=== PATIENT | female | born 1950 ===

== ENCOUNTER 2016-08-13 15:16 | Inpatient (IN) | payer MEDICARE, MEDICAID, OTHER ==
[2016-08-13 15:37] VITALS: BMI 37.5
[2016-08-13] MEDS ORDERED: DiphenhydrAMINE 50 mg/ml Inj IVP STA (16:10)
[2016-08-13 16:30] LABS: ADD MANUAL DIFF? NO
[2016-08-13 16:51] LABS: BASO # 0.01 K/mm3 (0.0-2.0); BASO % 0.1 % (0.0-3.0); EOS # 0.8 (0.0-0.7); EOS % 7.5 % (1.5-5.0); GRAN # 8.09 (1.4-6.5); LYMPH # 1.3 (1.2-3.4); LYMPH % 11.5 % (22.0-35.0); MEAN CELL VOLUME 89.3 fL (80.0-105.0); MEAN CORPUSCULAR HEMOGLOBIN 29.7 pg (25.0-35.0); MEAN CORPUSCULAR HGB CONC 33.3 g/dl (31.0-37.0); MEAN PLATELET VOLUME 11.4 fl (7.0-11.0); MONO # 0.8 (0.1-0.6); MONO % 6.9 % (1.0-6.0); PLATELET COUNT 213 10^3/uL (120.0-450.0); RED CELL DISTRIBUTION WIDTH 14.4 % (11.5-14.5); WHITE BLOOD COUNT 10.9 10^3/ul (4.5-11.0)
[2016-08-13 16:54] LABS: ALB/GLOB RATIO 1.3 (1.1-1.8); ALKALINE PHOSPHATASE 95 U/L (38-133); ALT/SGPT 32 U/L (7-56); AST/SGOT 22 U/L (15-39); BILIRUBIN,TOTAL 0.5 mg/dL (0.2-1.3); BLOOD UREA NITROGEN 15 mg/dL (7-21); CALCIUM 8.6 mg/dL (8.4-10.5); CARBON DIOXIDE 26 mmol/L (21-33); CHLORIDE 106 mmol/L (98-107); GFR AFRICAN-AMERICAN > 60; GLUCOSE,RANDOM 101 mg/dL (70-110); POTASSIUM 4.3 mmol/L (3.6-5.0); SODIUM 137 mmol/L (132-148); TOTAL PROTEIN 6.5 g/dL (5.8-8.3)
--- NOTE | 2016-08-13 17:17 | ED PDOC ---
Arrival/HPI - General Chief Complaint: Abnormal Skin Integrity Time Seen by Provider: 08/13/16 15:38 Historian: Patient - History of Present Illness Narrative History of Present Illness (Text): 08/13/16 17:13 65yr old female presents today with diffuse rash to body. pt states rash started 1 day after have Ceretec scan performed. pt states she was being followed by her orthopedist for possible infection in the left knee. pt states the tests were negative for infection but she developed this very pruritic rash that started on left arm and slowly has spread to the entire body. pt denies cp or sob. denies any new soaps, lotions, detergents, medications, perfumes. no vomiting/diarrhea. denies any pain. pt states she has been taking benadryl for the itch with slight improvement. denies fever/chills. no other complaints. 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 wears glasses - Renal Hx Renal Disorder: No - Endocrine/Metabolic Hx Endocrine Disorders: No - Hematological/Oncological Hx Blood Disorders: No Hx AIDS: No - Integumentary Hx Dermatological Disorder: No - Musculoskeletal/Rheumatological Hx Arthritis: Yes - Gastrointestinal Hx Gastrointestinal Disorders: Yes Hx Gastritis: Yes - Genitourinary/Gynecological Hx Genitourinary Disorders: No - Psychiatric Hx Psychophysiologic Disorder: Yes Hx Anxiety: Yes Hx Emotional Abuse: (pt. stated no) Hx Physical Abuse: (pt stated no) Hx Substance Use: No - Surgical History Hx Joint Replacement: Yes (left knee) Other/Comment: colonoscopy S/p LTKR 07/12/2014 - Anesthesia Hx Anesthesia: Yes Hx Anesthesia Reactions: Yes (nausea) Hx Malignant Hyperthermia: No - Suicidal Assessment Feels Threatened In Home Enviroment: No Family/Social History - Physician Review Nursing Documentation Reviewed: Yes Family/Social History: Unknown Family HX Smoking Status: Former Smoker Hx Alcohol Use: No Hx Substance Use: No Hx Substance Use Treatment: No Allergies/Home Meds Allergies/Adverse Reactions: Allergies ketorolac Allergy (Verified 08/13/16 15:34) SHORTNESS OF BREATH Home Medications: Home Meds Medication Instructions Recorded Confirmed Albuterol Sulfate [Proair Hfa] 2 puff PO PRN PRN 06/08/13 02/15/16 Verapamil [Calan SR Tab] 120 mg PO DAILY 06/08/13 02/15/16 Lisinopril [Zestril] 40 mg PO DAILY 07/12/15 02/15/16 Temazepam 30 mg PO HS 07/12/15 02/15/16 Topiramate [Topamax] 100 mg PO BID 07/12/15 02/15/16 Alprazolam [Xanax] 0.5 mg PO QID 02/15/16 02/15/16 Ferrous Sulfate [Feosol] 325 mg PO DAILY 02/15/16 02/15/16 Fluticasone/Salmeterol 250/50 1 dsk IH BID 02/15/16 02/15/16 [Advair Diskus] Omeprazole 40 mg PO DAILY 02/15/16 02/15/16 Simvastatin [Zocor] 20 mg PO DAILY 02/15/16 02/15/16 Warfarin [Coumadin] 5 mg PO DAILY 02/15/16 02/15/16 Review of Systems - Review of Systems Constitutional: absent: Fatigue, Fevers Respiratory: absent: SOB, Cough Cardiovascular: absent: Chest Pain, Palpitations Gastrointestinal: absent: Abdominal Pain, Nausea, Vomiting Genitourinary Female: absent: Dysuria Musculoskeletal: absent: Arthralgias Skin: Rash, Pruritis Neurological: absent: Headache, Dizziness Psychiatric: absent: Anxiety, Depression Physical Exam Vital Signs Reviewed: Yes Vital Signs Temp Pulse Resp BP Pulse Ox 08/13/16 18:35 79 18 125/67 100 08/13/16 16:37 89 18 128/69 100 08/13/16 15:33 98.2 F 94 H 18 132/71 100 Temperature: Afebrile Blood Pressure: Normal Pulse: Regular Respiratory Rate: Normal Appearance: Positive for: Well-Appearing, Non-Toxic, Comfortable Pain Distress: None Mental Status: Positive for: Alert and Oriented X 3 - Systems Exam Head: Present: Atraumatic, Normocephalic Conjunctiva: Present: Normal Mouth: Present: Moist Mucous Membranes Neck: Present: Normal Range of Motion Respiratory/Chest: Present: Clear to Auscultation, Good Air Exchange. No: Respiratory Distress, Accessory Muscle Use Cardiovascular: Present: Regular Rate and Rhythm, Normal S1, S2. No: Murmurs Abdomen: No: Tenderness, Distention, Peritoneal Signs Back: No: CVA Tenderness, Midline Tenderness, Paraspinal Tenderness Upper Extremity: Present: Normal ROM. No: Cyanosis, Edema Lower Extremity: Present: Normal ROM. No: Edema Neurological: Present: GCS=15, Speech Normal Skin: Present: Warm, Dry, Rashes (erythematous blanching papules and plaques noted to upper arms and thighs bilaterally. pt with non blanching erythematous pinpoint macules noted to the lower legs bilaterally; there are erythematous papules noted to chest and stomach. back is erythematous without papules), Normal Color Psychiatric: Present: Alert, Oriented x 3 Medical Decision Making ED Course and Treatment: 08/13/16 17:22 Patient is nontoxic well-appearing in no distress with stable vital signs no angioedema. pt with worsening rash to entire body. Lungs are clear to auscultation bilaterally there is no wheezing noted. The airway is patent Benadryl 50 mg IV Solu-Medrol 125 mg IV Pepcid 20 mg IV cbc; wnl cmp; wnl INR: 4 Patient reassessment: Patient nontoxic well-appearing no distress with stable vital signs. There has been no improvement in the rash despite IV medications Rash has a petechial appearance of the lower extremities, with a diffuse erythema along the back with erythematous papules and plaques along the chest and abdomen. Patient with an elevated INR. Question whether the rash is allergic in nature or if there is a possible vasculitis. Will admit observational status for further evaluation. Case discussed in depth with Dr. Rajput excepts admission Patient was seen and evaluated by Dr. Echols. case discussed in depth with Dr. arvizu; Impression : rash, supratherapuetic INR admit to med/surg - Lab Interpretations Lab Results: 08/13/16 15:45 08/13/16 15:45 Lab Results 08/13/16 16:05: Urine Color Yellow, Urine Appearance Clear, Urine pH 7.0, Ur Specific Hudson 1.020, Urine Protein Negative, Urine Glucose (UA) Negative, Urine Ketones Negative, Urine Blood Negative, Urine Nitrate Negative, Urine Bilirubin Negative, Urine Urobilinogen 0.2, Ur Leukocyte Esterase Negative 08/13/16 15:45: WBC 10.9 D, RBC 4.48, Hgb 13.3, Hct 40.0, MCV 89.3, MCH 29.7, MCHC 33.3, RDW 14.4, Plt Count 213, MPV 11.4 H, Gran % 74.0 H, Lymph % (Auto) 11.5 L, Glynn % (Auto) 6.9 H, Eos % (Auto) 7.5 H, Baso % (Auto) 0.1, Gran # 8.09 H, Lymph # 1.3, Glynn # 0.8 H, Eos # 0.8 H, Baso # 0.01 08/13/16 15:45: Sodium 137, Potassium 4.3, Chloride 106, Carbon Dioxide 26, Anion Gap 9 L, BUN 15, Creatinine 0.7, Est GFR ( Amer) > 60, Est GFR (Non -Af Amer) > 60, Random Glucose 101, Calcium 8.6, Total Bilirubin 0.5, AST 22, ALT 32, Alkaline Phosphatase 95, Total Protein 6.5, Albumin 3.7, Globulin 2.8, Albumin/Globulin Ratio 1.3 08/13/16 15:45: PT 43.8 H*, INR 4.06 H*, APTT 52.4 H - Medication Orders Current Medication Orders: Discontinued Medications Diphenhydramine HCl (Benadryl) 50 mg IVP STAT STA Stop: 08/13/16 16:11 Last Admin: 08/13/16 16:29 Dose: 50 mg Famotidine (Pepcid) 20 mg IVP STAT STA Stop: 08/13/16 16:11 Last Admin: 08/13/16 16:29 Dose: 20 mg Methylprednisolone (Solu-Medrol) 125 mg IVP STAT STA Stop: 08/13/16 16:11 Last Admin: 08/13/16 16:29 Dose: 125 mg Disposition/Present on Arrival - Present on Arrival Any Indicators Present on Arrival: Yes History of DVT/PE: Yes History of Uncontrolled Diabetes: No Urinary Catheter: No History of Decub. Ulcer: No History Surgical Site Infection Following: None - Disposition Have Diagnosis and Disposition been Completed?: Yes Diagnosis: Rash, Petechial rash, Elevated INR Disposition: HOSPITALIZED Disposition Time: 18:40 Patient Plan: Observation Patient Problems: Current Active Problems Problem Status Onset Elevated INR Acute Petechial rash Acute Rash Acute Condition: FAIR Referrals: Luz Marina Dean MD [Primary Care Provider] - Follow up with primary
[2016-08-13 17:40] LABS: URINE BILIRUBIN NEGATIVE (NEGATIVE); URINE BLOOD NEGATIVE (NEGATIVE); URINE GLUCOSE (UA) NEGATIVE (NEGATIVE); URINE KETONE NEGATIVE (NEGATIVE); URINE LEUKOCYTE ESTERASE NEGATIVE Leu/uL (NEGATIVE); URINE PROTEIN NEGATIVE mg/dL (<30 mg/dL); URINE UROBILINOGEN 0.2 E.U./dL (<1 E.U./dL)
[2016-08-13 17:44] LABS: URINE APPEARANCE CLEAR (CLEAR); URINE COLOR YELLOW (YELLOW)
[2016-08-13 18:00] LABS: PARTIAL THROMBOPLASTIN TIME 52.4 Seconds (23.7-30.8)
[2016-08-13 18:07] LABS: INR 4.06 (0.93-1.08)
[2016-08-13 22:36] VITALS: RESP 20
[2016-08-13] MEDS: MOMETASONE 0.1% TOP SCH (23:24)
[2016-08-14 01:09] LABS: INR 3.85 (0.93-1.08)
[2016-08-14 07:44] LABS: HEMATOCRIT 42.1 % (36.0-48.0); MEAN CELL VOLUME 89.4 fL (80.0-105.0); MEAN CORPUSCULAR HEMOGLOBIN 29.3 pg (25.0-35.0); MEAN CORPUSCULAR HGB CONC 32.8 g/dl (31.0-37.0); MEAN PLATELET VOLUME 11.5 fl (7.0-11.0); RED CELL DISTRIBUTION WIDTH 14.6 % (11.5-14.5); WHITE BLOOD COUNT 9.7 10^3/ul (4.5-11.0)
[2016-08-14 07:55] LABS: BLOOD UREA NITROGEN 12 mg/dL (7-21); CALCIUM 8.6 mg/dL (8.4-10.5); CARBON DIOXIDE 25 mmol/L (21-33); CHLORIDE 105 mmol/L (95-110); CHOLESTEROL 156 mg/dL (130-200); GFR AFRICAN-AMERICAN > 60; GLUCOSE,RANDOM 107 mg/dL (70-110); POTASSIUM 4.2 mmol/L (3.6-5.0); SODIUM 138 mmol/L (132-148)
--- NOTE | 2016-08-14 08:22 | HP ---
CHIEF COMPLAINT: Rash on the whole body except the face. HISTORY OF PRESENT ILLNESS: The patient is a 65-year-old female came to the Emergency Room with diffuse rash to the body. The patient states rash started 1 day after she had Ceretec scan performed. The patient stated that she was being followed up by her orthopedic, Dr. Vega, for possible infection in the left knee. The patient stated that tests were negative for infection, but she got this pruritic rash that started on the left arm and slowly has spread to the entire body except the face and head. The patient denies chest pain. No nausea, vomiting, or diarrhea. She does not have any history of using a new soap, lotions or detergents, medications, perfumes, jewelries. No nausea, vomiting, or diarrhea. The patient stated that she has been taking Benadryl for the itch with slight improvement. Denies fever or chills. No other complaints, but constantly itching. The skin is red. PAST MEDICAL HISTORY: History of hypertension, stable with medications. COPD, migraine, partial vision right eye affected. The left eye has no problem. Arthritis, gastritis, anxiety, left knee replacement. FAMILY HISTORY: Father and mother noncontributory. HABITS: Former smoker. No alcohol, no substance abuse. ALLERGIES: THE PATIENT IS ALLERGIC WITH KETOROLAC, GIVES SHORTNESS OF BREATH. HOME MEDICATIONS: Albuterol, Zestril, Topamax, Xanax, Feosol, Zocor, warfarin. REVIEW OF SYSTEMS: The patient seen and examined on the bedside in the ER. Son was standing on the bedside also. No fatigue. No fever. No shortness of breath, no coughing, no chest pain, no palpitations. No abdominal pain, nausea , vomiting, or diarrhea. No dysuria. No arthralgia. On the skin, she had rash , pruritic. Whole skin is red. No headache, no dizziness. PHYSICAL EXAMINATION: VITAL SIGNS: Temperature 98.2, pulse 94, respiratory rate 18, blood pressure 130/74, pulse oximetry 100. HEENT: Head normocephalic and atraumatic. Eyes: PERRLA. Extraocular muscles intact. Conjunctivae clear. Nose patent. Mucous membranes moist. NECK: Supple. No carotid bruit, JVD or thyromegaly. CHEST: Bilaterally symmetrical. HEART: S1, S2 positive. LUNGS: Clear to auscultation. ABDOMEN: Soft, nontender. No organomegaly. EXTREMITIES: No edema, no cyanosis. NEUROLOGIC: The patient is awake, alert and moving all 4 extremities. No focal deficit. SKIN: Warm, dry. Rash is erythematous, blanching. Papules and plaques noted to the upper arms and thighs bilaterally. The patient with nonblanching, erythematous pinpoint macules noted to the lower legs bilaterally. Dry erythematous plaques noted on the chest and stomach. Back is erythematous without papule. Normal skin color except that rash is red. LABORATORY DATA: Blood cells 10.5, hemoglobin 13.3, hematocrit 40.0, platelets noted Sodium 137, potassium noted , BUN 17, creatinine 0.7, glucose 101. ASSESSMENT AND PLAN: The patient is a 65-year-old lady has rash, whole body, on Coumadin. INR is elevated. We will hold Coumadin. Has history of chronic obstructive pulmonary disease, hypertension, migraine, right eye vision problem , History of gastritis, anxiety. Was seen by Dr. Vega, got procedure, Ceretec scan, The patient had allergic reaction or dermatitis, spoke to the PA, Brissa Waggoner. She had discussion done with infectious disease, Dr. Bolivar , insect control inspector. The patient got Benadryl, Pepcid, methylprednisone. Gastrointestinal and deep venous thrombosis prophylaxis. Repeat labs. We will follow up. Lucy Rajput MD cc: [id number] TT: 08/14/2016 08:07:34 tn MTDNorris
[2016-08-14] MEDS: MethylPREDNISolone 40 mg Vial IVP SCH ×2 (09:48→21:23)
[2016-08-14] MEDS: MOMETASONE 0.1% TOP SCH ×2 (09:50→17:58)
--- NOTE | 2016-08-14 15:50 | CP.PCM.CON ---
History of Present Illness - History of Present Illness History of Present Illness: 65 year old male with PMH of HTN, COPD, migraine, arthritis, anxiety, S/P left knee arthroplasty in June 2015, obesity with BMI 38 is admitted because of generalized maculopapular rash which started as week ago, about a day after she underwent a WBC scan to rule out left knee prosthetic infection. Around the same time, she also had her Verapamil changed to the generic form. The rash started on the left upper arm, then spread had some on her trunk and it has now spread to her legs and neck, so far sparing the face. She denies animal or insect bites or contact, no travel outdoors in the past 3 months, no swimming in water, no fever or chills, no nausea or vomiting, no chest pain, no SOB, no difficulty swallowing, no blurring of vision, no cough or colds, no diarrhea, no dysuria, no hematuria, no abdominal pain. Infectious Diseases consult is requested to further evaluate and manage. 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 wears glasses - RENAL Hx Chronic Kidney Disease: No - ENDOCRINE/METABOLIC Hx Endocrine Disorders: No - HEMATOLOGICAL/ONCOLOGICAL Hx Blood Disorders: No Hx AIDS: No - INTEGUMENTARY Hx Dermatological Problems: No - MUSCULOSKELETAL/RHEUMATOLOGICAL Hx Arthritis: Yes - GASTROINTESTINAL Hx Gastrointestinal Disorders: Yes Hx Gastritis: Yes - GENITOURINARY/GYNECOLOGICAL Hx Genitourinary Disorders: No - PSYCHIATRIC Hx Psychophysiologic Disorder: Yes Hx Anxiety: Yes Hx Emotional Abuse: (pt. stated no) Hx Physical Abuse: (pt stated no) Hx Substance Use: No - SURGICAL HISTORY Hx Joint Replacement: Yes (left knee) Other/Comment: colonoscopy S/p LTKR 07/12/2014 - ANESTHESIA Hx Anesthesia: Yes Hx Anesthesia Reactions: Yes (nausea) Hx Malignant Hyperthermia: No Meds Allergies/Adverse Reactions: Allergies Allergy/AdvReac Type Severity Reaction Status Date / Time ketorolac Allergy SHORTNESS Verified 08/13/16 15:34 OF BREATH - Medications Medications: Current Medications Diphenhydramine HCl (Benadryl) 50 mg PO Q8 PRN PRN Reason: Rash Last Admin: 08/14/16 03:45 Dose: 50 mg Famotidine (Pepcid) 40 mg PO HS [facility] Methylprednisolone (Solu-Medrol) 40 mg IVP Q12 KRISTYN Mometasone Furoate (Elocon Lotion) 0 ml TOP BID KRISTYN Last Admin: 08/13/16 23:24 Dose: 1 applic Montelukast Sodium (Singulair) 10 mg PO HS [facility] Last Admin: 08/13/16 23:24 Dose: 10 mg Physical Exam - Constitutional Appears: Non-toxic, No Acute Distress - Head Exam Head Exam: NORMAL INSPECTION - ENT Exam ENT Exam: Mucous Membranes Moist - Neck Exam Neck exam: Negative for: Lymphadenopathy, Meningismus - Respiratory Exam Respiratory Exam: Decreased Breath Sounds - Cardiovascular Exam Cardiovascular Exam: +S1, +S2 - GI/Abdominal Exam GI & Abdominal Exam: Soft. absent: Tenderness - Skin Skin Exam: Rash (diffuse, maculopapular, confluent, blanching, so far sparing the face) Results - Vital Signs Recent Vital Signs: Last Vital Signs Temp 98.1 F 08/13/16 22:19 Pulse 70 08/13/16 22:19 Resp 20 08/13/16 22:19 BP 160/95 H 08/13/16 22:19 Pulse Ox 100 08/13/16 20:52 - Labs Result Diagrams: 08/14/16 07:30 08/14/16 07:30 Labs: Laboratory Results - last 24 hr 08/14/16 00:10 PT 41.6 H* INR 3.85 H* Assessment & Plan - Assessment and Plan (Free Text) Plan: Assessment Diffuse maculopapular rash, probably drug-related R/O due to generic Verapamil, R/O related to WBC scan HTN COPD migraine arthritis anxiety S/P left knee arthroplasty in June 2015 obesity with BMI 38 Plan Started patient on streroids, H1 and H2 blockers and will monitor clinical response reviewed WBC scan and Bone scan results - bone scan is positive but is more likely due to the prosthesis, while the WBC scan is negative for infection in the left knee prosthesis
--- NOTE | 2016-08-15 08:53 | PN ---
DATE: 08/14/2016 SUBJECTIVE: The patient was seen and examined on the bedside. Looks comfortable, not big change in the status, but getting a little bit better. No nausea, vomiting, or diarrhea. No hematuria or hematochezia. Still skin is itchy. PHYSICAL EXAMINATION: VITAL SIGNS: Temperature 97.7, pulse 63, blood pressure 135/81, respiratory rate 20. HEENT: Head normocephalic, atraumatic. Eyes: PERRLA. Extraocular muscles are intact. Conjunctivae clear. Nose patent. Mucous membranes moist. NECK: Supple. No carotid bruit, JVD or thyromegaly. CHEST: Bilaterally symmetrical. HEART: S1, S2 positive. LUNGS: Clear to auscultation. ABDOMEN: Soft. Bowel sounds present. No organomegaly. EXTREMITIES: No edema, no cyanosis. NEUROLOGIC: The patient is awake, alert, moving all 4 extremities. No focal deficit. SKIN: Warm, red. Rash is all over the body, sparing the face. MEDICATIONS: Benadryl, Elocon, Pepcid, Singulair, Solu-Medrol. LABORATORY DATA: White blood cells 9.7, hemoglobin 13.8, hematocrit 42.1, platelets 214. Sodium 138, potassium 4.2, BUN 12, creatinine 0.6, hemoglobin A1c 5.8. TSH 0.4. 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 That gave her ptosis and that is giving migraine, history of hypertension, arthritis, anxiety, status post left knee arthroplasty in 06/2015, obesity, has generalized maculopapular rash which started a week ago, underwent for white blood cell scan to rule out left knee prosthetic Infection. Around the same time, the patient had verapamil, took the generic form. Maybe rash is drug related, rule out due to generic verapamil , rule out related to white blood cell scan. Started the patient on steroid, H1 and H2 blockers and we will monitor clinical response. positive, but is more likely due to prosthesis. White blood cell scan is negative for infection in the left knee as per Dr. Markus Bolivar. The patient needs hematology consult, but health psychologist is not available in [facility]. We are giving Benadryl, Cymbalta, Elocon cream, Pepcid, Zocor for hypercholesterolemia. Topamax for migraine, Zestril for blood pressure. Gastrointestinal and deep venous thrombosis prophylaxis. Repeat labs. We will follow up. Lucy Rajput MD cc: [id number] TT: 08/15/2016 08:53:07 Confirmation # [id number] Dictation # [id number] tn MTDD
[2016-08-15] MEDS: MOMETASONE 0.1% TOP SCH ×3 (09:39→17:00)
[2016-08-15] MEDS: MethylPREDNISolone 40 mg Vial IVP SCH ×2 (09:39→21:51)
--- NOTE | 2016-08-15 09:51 | CON ---
DATE: 08/14/2016 REFERRING PHYSICIAN: Dr. Rajput REASON FOR CONSULTATION: Pulmonary embolism, may have sleep apnea syndrome, admitted with diffuse ra sh. HISTORY OF PRESENT ILLNESS: This is a 65-year-old female with multiple medical issues including hype rtension, history of recurrent pulmonary embolism, committed for lifelong anticoagulation, history of severe migraines, degenerative joint disease, who recently had her Calan brand changed to Cardizem a nd received diltiazem. According to patient, while she is third or fourth dose of diltiazem, she sta rted having itching and rash. Presented to ER with diffuse rash all over the body with itching. Adm its to have snoring, daytime sleepy. No chest pain, no nausea, no vomiting, no diarrhea. No leg treasure n or leg swelling. PAST MEDICAL HISTORY: Recurrent pulmonary embolism, committed for lifelong anticoagulation, hyperten jazmine, chronic lung disease, migraine headaches, degenerative joint disease. ALLERGIES: KETORALAC. FAMILY HISTORY: No significant cardiopulmonary disease reported. MEDICATIONS: She is on Benadryl 50 mg q. 8 hours, Eldoquin lotion twice a day, Pepcid 40 mg daily, S ingulair 10 mg daily, Solu-Medrol 40 mg q. 12 hours. REVIEW OF SYSTEMS: On and off migraine headaches involving the right eye. No rhinitis, no cough, sp utum production. Does have snoring. No nausea, no vomiting, no diarrhea. No leg pain or leg swelli ng. PHYSICAL EXAMINATION: GENERAL: Lying in the bed, mild to moderate distress secondary to itching and rash. VITAL SIGNS: Temp is 98, heart rate 63, respiratory rate is 20, blood pressure 135/81, pulse ox 97% on room air. HEENT: Moist mucous membranes. Crowded airway. Mallampati score is 4. NECK: Supple. No JVD. LUNGS: Has a fair airflow with few rhonchi. HEART: S1, S2. ABDOMEN: Soft, nontender. No organomegaly. EXTREMITIES: No edema. NEUROLOGIC: Awake, alert, follows simple commands. SKIN: Has a diffuse rash of trunk, upper body and back. LABORATORY DATA: Shows hemoglobin 13.8, hematocrit 42.1, WBC 9.7, platelet is 214. Her INR was 3.85 today. Sodium 138, potassium 4.2, chloride 105, bicarbonate 25, BUN 12, creatinine 0.6, glucose 107 . Hemoglobin A1c 5.8. Calcium is 8.6. Cholesterol 156. TSH 0.1. IMPRESSION AND PLAN: Probably drug reaction, could be Cardizem/diltiazem, pulmonary embolism, on ant icoagulation committed for lifelong, has a supratherapeutic INR. Hold Coumadin. History of migraine headaches. Will get pain medication. Sleep apnea precaution. Keep head elevated at 45 degrees. W ill recommend attended sleep study upon discharge. Will add Singulair 10 mg at bedtime, also add lorene g-acting antihistamine. Thank you and we will follow with you. Roman Hahn MD cc: [id number] TT: 08/15/2016 09:50:22 Confirmation # [id number] Dictation # [id number] en
[2016-08-15 12:31] LABS: INR 2.7 (0.93-1.08)
--- NOTE | 2016-08-15 17:26 | CP.PCM.PN ---
Subjective - Date & Time of Evaluation Date of Evaluation: 08/15/16 Time of Evaluation: 12:10 - Subjective Subjective: Patient continues to have the maculopapular rash, now with some lesions on the jaw area. Objective - Vital Signs/Intake and Output Vital Signs (last 24 hours): Temp Pulse Resp BP Pulse Ox 97.7 F 64 20 141/83 97 08/15/16 09:18 08/15/16 09:18 08/15/16 09:18 08/15/16 09:18 08/15/16 09:18 Intake and Output: 08/15/16 08/15/16 06:59 18:59 Intake Total 240 1080 Balance 240 1080 - Medications Medications: Current Medications Atorvastatin Calcium (Lipitor) 10 mg PO DIN [facility] Last Admin: 08/15/16 16:25 Dose: 10 mg Diphenhydramine HCl (Benadryl) 50 mg PO Q4 [facility] Last Admin: 08/15/16 16:25 Dose: 50 mg Duloxetine HCl (Cymbalta) 60 mg PO DAILY [facility] Last Admin: 08/15/16 09:39 Dose: 60 mg Famotidine (Pepcid) 40 mg PO HS [facility] Last Admin: 08/14/16 21:23 Dose: 40 mg Lisinopril (Zestril) 40 mg PO DAILY [facility] Last Admin: 08/15/16 09:39 Dose: 40 mg Loratadine (Claritin) 10 mg PO DAILY [facility] Last Admin: 08/15/16 09:39 Dose: 10 mg Methylprednisolone (Solu-Medrol) 40 mg IVP Q12 [facility] Last Admin: 08/15/16 09:39 Dose: 40 mg Mometasone Furoate (Elocon Lotion) 0 ml TOP TID [facility] Last Admin: 08/15/16 17:00 Dose: 1 applic Montelukast Sodium (Singulair) 10 mg PO HS [facility] Last Admin: 08/14/16 21:23 Dose: 10 mg Topiramate (Topamax) 100 mg PO BID [facility] PRN Reason: Protocol Last Admin: 08/15/16 16:59 Dose: 100 mg Warfarin Sodium (Coumadin) 1 mg PO 1800 [facility] PRN Reason: Protocol Last Admin: 08/15/16 16:59 Dose: 1 mg - Labs Labs: PT 29.2 Seconds (9.9-11.8) H 08/15/16 12:15 INR 2.70 (0.93-1.08) H 08/15/16 12:15 APTT 52.4 Seconds (23.7-30.8) H 08/13/16 15:45 - Constitutional Appears: Non-toxic, No Acute Distress - Head Exam Head Exam: NORMAL INSPECTION - Neck Exam Neck Exam: absent: Lymphadenopathy, Meningismus - Respiratory Exam Respiratory Exam: Decreased Breath Sounds - Cardiovascular Exam Cardiovascular Exam: +S1, +S2 - GI/Abdominal Exam GI & Abdominal Exam: Soft. absent: Tenderness - Skin Skin Exam: Rash (diffuse, confluent maculopapular rash, diffuse) Assessment and Plan - Assessment and Plan (Free Text) Plan: Assessment Diffuse maculopapular rash, probably drug-related R/O due to generic Verapamil, R/O related to WBC scan HTN COPD migraine arthritis anxiety S/P left knee arthroplasty in June 2015 obesity with BMI 38 Plan continue steroids, H1 and H2 blockers and will continue to monitor clinical response reviewed WBC scan and Bone scan results - bone scan is positive but is more likely due to the prosthesis, while the WBC scan is negative for infection in the left knee prosthesis
--- NOTE | 2016-08-15 18:40 | PN ---
DATE: 08/15/2016 REFERRING PHYSICIAN: Dr. Rajput. SUBJECTIVE: She is out of bed to chair. She has a diffuse rash from neck to lower extremity with it ron. No shortness of breath. No chest pain. Migraine is a little better. No nausea, no vomiting , diarrhea. No leg pain or leg swelling. OBJECTIVE: GENERAL: In no acute distress. VITAL SIGNS: Temp is 98, heart rate is 64, respiratory rate is 20, blood pressure 141/83, pulse ox 9 7% on room air. HEENT: Moist mucous membranes. Crowded airway. Mallampati score is 4. NECK: Supple. No JVD. LUNGS: Has a fair airflow with few rhonchi. ABDOMEN: Soft, nontender. No organomegaly. EXTREMITIES: There is no edema. NEUROLOGIC: Awake, alert, follows simple commands. Has a diffuse maculopapular rash. MEDICATIONS: She is on Benadryl 50 mg q. 4 hours, Claritin 10 mg daily, Cymbalta 60 mg daily. She i s getting Elocon lotion to the body 3 times a day, Lipitor 10 mg daily, Pepcid 40 mg daily, Singulair 10 mg daily, Solu-Medrol 40 mg q. 12 hours, Topamax 100 mg twice a day, Zestril 40 mg daily. LABORATORY DATA: Shows hemoglobin 13.8. Today's INR 2.70. KENRICK screen has been negative. IMPRESSION AND PLAN: Probably drug reaction. She switched her Calan to Cardizem/diltiazem, history of pulmonary embolism on anticoagulation, migraine headaches, may have sleep apnea syndrome. Will co ntinue Claritin daily , p.r.n. Benadryl, Solu-Medrol, may give Coumadin 1 mg today. INR in the morning. Gastric prophylaxis. Sleep apnea precaution. Thank you and I will follow with you. Roman Hahn MD cc: [id number] TT: 08/15/2016 18:39:42 Confirmation # [id number] Dictation # [id number] mn
[2016-08-16 07:50] LABS: INR 2.19 (0.93-1.08)
[2016-08-16] MEDS: MethylPREDNISolone 40 mg Vial IVP SCH ×2 (09:14→21:45)
[2016-08-16] MEDS: MOMETASONE 0.1% TOP SCH ×3 (09:16→18:00)
--- NOTE | 2016-08-16 09:44 | PN ---
DATE: 08/15/2016 SUBJECTIVE: The patient was seen and examined on the bedside. The patient was seen and examined on in her room, having continuously maculopapular rash and now with some lesions on the jaw area and near the ears also, but legs - rash is getting a little bit better. No nausea, vomiting, or diar checo. No hematuria or hematochezia. No swelling of the leg. No chest pain, no palpitation. No hea dache, no dizziness. PHYSICAL EXAMINATION: VITAL SIGNS: Temperature 97.7, pulse 64, respiratory rate 20, blood pressure 140/83, pulse oximetry 97. HEENT: Head normocephalic, atraumatic. Eyes: PERRLA. Extraocular muscles are intact. Conjunctiva e are clear. Nose patent. Mucous membranes moist. NECK: Supple. No carotid bruit, JVD, or thyromegaly. CHEST: Bilaterally symmetrical. HEART: S1, S2 positive. LUNGS: Clear to auscultation. ABDOMEN: Soft. Bowel sounds present. No organomegaly. EXTREMITIES: No edema, no cyanosis. SKIN: Has maculopapular rash all over, now is going to the jaw area also. MEDICATIONS: Atorvastatin, Benadryl ____ q. 4 hours, Cymbalta, Pepcid, Zestril, Claritin, Solu-Medro l, Elocon, Singulair, Topamax, Coumadin. LABORATORY DATA: PT 29.4, INR 2.70. APTT 52.4. ASSESSMENT AND PLAN: The patient is a 65-year-old lady with diffuse maculopapular rash, maybe drug-r elated, rule out due to genetic ____, rule out related to white blood cell scan, history of hypertens ion, obesity, chronic obstructive pulmonary disease, migraine, arthritis, anxiety, status post left k nee arthroplasty in 06/2015. She is on steroids, H1 and H2 shabbir. Continue to monitor clinical res ponse. Reviewed white blood cell scan and bone scan results. The bone scan is positive, but is more likely due to prosthesis while the white blood cell scan is negative for infection and in the left k nee prosthesis. Reviewed Dr. Markus Bolivar's notes. Reviewed Dr. Hahn's notes also. The patient has chronic obstructive pulmonary disease, history of pulmonary embolism on anticoagulation, migrain e - stable, history of right third nerve palsy ____, sleep apnea syndrome, INR monitoring, gastric pr ophylaxis, sleep apnea precautions. We will follow up. Lucy Rajput MD cc: [id number] TT: 08/16/2016 09:37:13 Confirmation # [id number] Dictation # [id number] 08/16/2016 08:44:25
--- NOTE | 2016-08-16 20:45 | PN ---
DATE: 08/16/2016 REFERRING PHYSICIAN: Dr. Rajput. SUBJECTIVE: She is lying in the bed, head at 45 degree. She still has a diffuse rash but a little b it improved, itching is also a little improved. No nausea, no vomiting, diarrhea. No leg pain or le g swelling. OBJECTIVE: GENERAL: No acute distress. VITAL SIGNS: Temperature is 98, heart rate 65, respiratory rate is 20, blood pressure 151/86, pulse ox 96% on nasal cannula. HEENT: Moist mucous membrane. Crowded airway. Mallampati score is 4. NECK: Supple. No JVD. LUNGS: Have a fair airflow with few rhonchi. HEART: S1, S2. ABDOMEN: Soft, nontender. No organomegaly. EXTREMITIES: No edema. NEUROLOGIC: Awake, alert, follows simple command. MEDICATIONS: She is on Benadryl 50 mg q. 4 hours, Claritin 10 mg daily, Coumadin 1 mg will be given, Cymbalta 60 mg daily, Elocon lotion affected area 3 times a day, Lipitor 10 mg daily, Pepcid 40 mg d aily, Singulair 10 mg daily, Solu-Medrol 40 mg IV q. 12 hours, Topamax 100 mg twice a day, Zestril 40 mg daily. LABORATORY DATA: Reviewed. INR today is 2.19. TSH 0.1. KENRICK screen was negative. IMPRESSION AND PLAN: Probably drug reaction causative agent could be Cardizem/diltiazem, pulmonary e mbolism on anticoagulation, migraine headache, may have a sleep apnea syndrome. Pulmonary point of v iew, she is doing okay. We will give an extra 2 mg of Coumadin today. INR in the morning. Gastric prophylaxis, antihistamine, steroids, H1 shabbir. Thank you and will follow with you. Roman Hahn MD cc: [id number] TT: 08/16/2016 20:45:36 Confirmation # [id number] Dictation # [id number] jayne
--- NOTE | 2016-08-16 21:16 | CP.PCM.PN ---
Subjective - Date & Time of Evaluation Date of Evaluation: 08/16/16 Time of Evaluation: 10:35 - Subjective Subjective: Feels less itchy, no fevers, not in distress. Objective - Vital Signs/Intake and Output Vital Signs (last 24 hours): Temp Pulse Resp BP Pulse Ox 98.7 F 65 20 151/86 H 96 08/16/16 16:00 08/16/16 16:00 08/16/16 16:00 08/16/16 16:00 08/16/16 16:00 Intake and Output: 08/16/16 08/17/16 18:59 06:59 Intake Total 780 Balance 780 - Medications Medications: Current Medications Atorvastatin Calcium (Lipitor) 10 mg PO DIN [facility] Last Admin: 08/16/16 17:36 Dose: 10 mg Diphenhydramine HCl (Benadryl) 50 mg PO Q4 [facility] Last Admin: 08/16/16 20:54 Dose: 50 mg Duloxetine HCl (Cymbalta) 60 mg PO DAILY [facility] Last Admin: 08/16/16 09:14 Dose: 60 mg Famotidine (Pepcid) 40 mg PO HS [facility] Last Admin: 08/15/16 21:51 Dose: 40 mg Lisinopril (Zestril) 40 mg PO DAILY [facility] Last Admin: 08/16/16 09:14 Dose: 40 mg Loratadine (Claritin) 10 mg PO DAILY [facility] Last Admin: 08/16/16 09:14 Dose: 10 mg Methylprednisolone (Solu-Medrol) 40 mg IVP Q12 [facility] Last Admin: 08/16/16 09:14 Dose: 40 mg Mometasone Furoate (Elocon Lotion) 0 ml TOP TID [facility] Last Admin: 08/16/16 18:00 Dose: 1 applic Montelukast Sodium (Singulair) 10 mg PO HS [facility] Last Admin: 08/15/16 21:51 Dose: 10 mg Topiramate (Topamax) 100 mg PO BID [facility] PRN Reason: Protocol Last Admin: 08/16/16 17:36 Dose: 100 mg Warfarin Sodium (Coumadin) 1 mg PO 1800 [facility] PRN Reason: Protocol Last Admin: 08/16/16 17:36 Dose: 1 mg - Labs Labs: PT 23.7 Seconds (9.9-11.8) H 08/16/16 07:30 INR 2.19 (0.93-1.08) H 08/16/16 07:30 APTT 52.4 Seconds (23.7-30.8) H 08/13/16 15:45 - Constitutional Appears: Non-toxic, No Acute Distress - Head Exam Head Exam: NORMAL INSPECTION - ENT Exam ENT Exam: Mucous Membranes Moist - Neck Exam Neck Exam: absent: Lymphadenopathy, Meningismus - Respiratory Exam Respiratory Exam: Decreased Breath Sounds - Cardiovascular Exam Cardiovascular Exam: +S1, +S2 - GI/Abdominal Exam GI & Abdominal Exam: Soft. absent: Tenderness - Skin Skin Exam: Rash (erythema is less intense) Assessment and Plan - Assessment and Plan (Free Text) Plan: Assessment Diffuse maculopapular rash, probably drug-related R/O due to generic Verapamil, R/O related to WBC scan, slowly improving HTN COPD migraine arthritis anxiety S/P left knee arthroplasty in June 2015 obesity with BMI 38 Plan continue steroids, H1 and H2 blockers and will continue to follow clinical response reviewed WBC scan and Bone scan results - bone scan is positive but is more likely due to the prosthesis, while the WBC scan is negative for infection in the left knee prosthesis
--- NOTE | 2016-08-17 07:23 | PN ---
DATE: 08/16/2016 SUBJECTIVE: The patient was seen and examined on the bedside, looking comfortable, still has the diffuse maculopapular rash, but a little bit improved , but now it has spread to the face also. No fever, no chills. No nausea, vomiting, or diarrhea. No hematuria or hematochezia, but the patient is very uncomfortable due to constant itching. Singulair, steroid, Elocon cream given. PHYSICAL EXAMINATION: VITAL SIGNS: Temperature 98, heart rate 65, respiratory rate 20, blood pressure 150/86, and pulse oximetry 96% on room air. HEENT: Head normocephalic, atraumatic. Eyes: PERRLA. Extraocular muscles intact. Conjunctivae clear. Nose patent. Mucous membranes moist. NECK: Supple. No carotid bruit, JVD or thyromegaly. LUNGS: Have a fair airflow with a few rhonchi. HEART: S1, S2 positive. ABDOMEN: Soft, nontender. No organomegaly. EXTREMITIES: No edema, no cyanosis. NEUROLOGIC: The patient is awake, alert, follows simple commands. SKIN: Full with a maculopapular rash, but coloration is changing a little bit, but spread to the face also. MEDICATIONS: Benadryl, Claritin 10, Coumadin 1, Cymbalta, Elocon, Lipitor, Pepcid, Singulair, Solu-Medrol, Topamax, Zestril. LABORATORY DATA: INR 2.19, TSH 0.1. KENRICK screen was negative. ASSESSMENT AND PLAN: The patient is a 65-year-old lady with drug reaction of agent, could be Cardizem/diltiazem. Pulmonary embolism on anticoagulation. Migraine headache. 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 INR in the morning. We will give extra 2 mg of Coumadin today per Dr. Hahn. Gastric prophylaxis, antihistamine and steroids and H1 shabbir. Actually, the patient needs a ribbon weaver also, but we do not have a ribbon weaver in house. Infectious disease is taking care of the patient's rash. May be rash is due to white blood cell scan, slowly improving. History of chronic obstructive pulmonary disease. Left knee arthroplasty, Obesity, body mass index 38. Gastrointestinal and deep venous thrombosis prophylaxis. Continue present treatment. Repeat labs. We will follow up. Lucy Rajput MD cc: [id number] TT: 08/17/2016 07:22:24 Confirmation # [id number] Dictation # [id number] MTDD
[2016-08-17 08:09] LABS: INR 1.79 (0.93-1.08)
[2016-08-17] MEDS: MOMETASONE 0.1% TOP SCH ×3 (10:49→17:30)
[2016-08-17] MEDS: MethylPREDNISolone 40 mg Vial IVP SCH ×2 (10:49→21:32)
--- NOTE | 2016-08-17 18:21 | CP.PCM.PN ---
Subjective - Date & Time of Evaluation Date of Evaluation: 08/17/16 Time of Evaluation: 10:25 - Subjective Subjective: Still with maculopapular rash, less itchy, less intense in redness. Objective - Vital Signs/Intake and Output Vital Signs (last 24 hours): Temp Pulse Resp BP Pulse Ox 98.1 F 70 20 150/89 98 08/17/16 16:00 08/17/16 16:00 08/17/16 16:00 08/17/16 16:00 08/17/16 16:00 Intake and Output: 08/17/16 08/17/16 06:59 18:59 Intake Total 920 640 Balance 920 640 - Medications Medications: Current Medications Atorvastatin Calcium (Lipitor) 10 mg PO DIN [facility] Last Admin: 08/17/16 17:29 Dose: 10 mg Diphenhydramine HCl (Benadryl) 50 mg PO Q4 [facility] Last Admin: 08/17/16 17:29 Dose: 50 mg Duloxetine HCl (Cymbalta) 60 mg PO DAILY [facility] Last Admin: 08/17/16 10:49 Dose: 60 mg Famotidine (Pepcid) 40 mg PO HS [facility] Last Admin: 08/16/16 21:45 Dose: 40 mg Lisinopril (Zestril) 40 mg PO DAILY [facility] Last Admin: 08/17/16 10:50 Dose: 40 mg Loratadine (Claritin) 10 mg PO DAILY [facility] Last Admin: 08/17/16 10:49 Dose: 10 mg Methylprednisolone (Solu-Medrol) 40 mg IVP Q12 [facility] Last Admin: 08/17/16 10:49 Dose: 40 mg Mometasone Furoate (Elocon Lotion) 0 ml TOP TID [facility] Last Admin: 08/17/16 17:30 Dose: 1 applic Montelukast Sodium (Singulair) 10 mg PO HS [facility] Last Admin: 08/16/16 21:45 Dose: 10 mg Topiramate (Topamax) 100 mg PO BID [facility] PRN Reason: Protocol Last Admin: 08/17/16 17:29 Dose: 100 mg Warfarin Sodium (Coumadin) 4 mg PO 1800 [facility] PRN Reason: Protocol Last Admin: 08/17/16 17:29 Dose: 4 mg - Labs Labs: PT 19.3 Seconds (9.9-11.8) H 08/17/16 07:40 INR 1.79 (0.93-1.08) H 08/17/16 07:40 APTT 52.4 Seconds (23.7-30.8) H 08/13/16 15:45 - Constitutional Appears: Non-toxic, No Acute Distress - Head Exam Head Exam: NORMAL INSPECTION - Neck Exam Neck Exam: absent: Lymphadenopathy, Meningismus - Respiratory Exam Respiratory Exam: Decreased Breath Sounds - Cardiovascular Exam Cardiovascular Exam: +S1, +S2 - GI/Abdominal Exam GI & Abdominal Exam: Soft. absent: Tenderness - Skin Additional comments: diffuse maculopapular rash, still erythematous but less intense Assessment and Plan - Assessment and Plan (Free Text) Plan: Assessment Diffuse maculopapular rash, probably drug-related R/O due to generic Verapamil, R/O related to WBC scan, slowly improving HTN COPD migraine arthritis anxiety S/P left knee arthroplasty in June 2015 obesity with BMI 38 Plan continue steroids, H1 and H2 blockers and will continue to follow clinical response reviewed WBC scan and Bone scan results - bone scan is positive but is more likely due to the prosthesis, while the WBC scan is negative for infection in the left knee prosthesis
--- NOTE | 2016-08-17 20:24 | PN ---
DATE: 08/17/2016 REFERRING PHYSICIAN: Dr. Rajput. SUBJECTIVE: She is out of bed to chair, feels a little better. The rash is a little less angry look ing. Still has itching though. Mild cough. No shortness of breath. No nausea, no vomiting, no hortensia rrhea. No leg pain or leg swelling. OBJECTIVE: GENERAL: In no acute distress. VITAL SIGNS: Temperature is 98, heart rate is 70, respiratory rate is 20, blood pressure 150/89, pul se ox 98% on room air. HEENT: Moist mucous membranes. Crowded airway. NECK: Short, thick neck. LUNGS: Has a few scattered rhonchi. HEART: S1, S2. ABDOMEN: Soft, nontender. No organomegaly. EXTREMITIES: There is no edema. NEUROLOGIC: Awake, alert, follows simple commands. SKIN: Diffuse rash with a little less erythema. MEDICATIONS: She is on Benadryl 50 mg q.4 hours, Claritin 10 mg daily, Coumadin 4 mg, Cymbalta 60 mg daily, Elocon to affected area 3 times a day, Lipitor 10 mg daily, Pepcid 40 mg at bedtime, Singulai r 10 mg daily, Solu-Medrol 40 mg q.12 hours, Topamax 100 mg twice a day, Zestril 40 mg daily. LABORATORY DATA: Reviewed. INR today 1.79. IMPRESSION AND PLAN: Probably drug reaction with a diffuse rash, which is slowly improving; has a hi story of pulmonary embolus, migraine headaches, may have sleep apnea syndrome, hypertension. Will gi ve her Coumadin 5 mg today. INR in the morning. Continue steroids. Continue antihistamine. Contin ue leukotriene inhibitors . Thank you and will follow with you. Roman Hahn MD cc: [id number] TT: 08/17/2016 20:23:38 Confirmation # [id number] Dictation # [id number] dn
--- NOTE | 2016-08-17 21:31 | PN ---
DATE: 08/17/2016 SUBJECTIVE: The patient was seen and examined at the bedside. No shortness of breath. No nausea, v omiting, or diarrhea. No fever, no chills. Skin is looking a little bit better, but is still itchy. No coughing. No headache, no dizziness, no fever, no chills. PHYSICAL EXAMINATION: VITAL SIGNS: Temperature 98, heart rate 70, respiratory rate 20, blood pressure 150/80, pulse oximet ry 98% on nasal cannula. HEENT: Head normocephalic, atraumatic. Eyes: PERRLA. Extraocular movements intact. Conjunctivae. Nose patent. Mucous membranes moist. NECK: Supple. No carotid bruit, JVD or thyromegaly. CHEST: Bilaterally symmetrical. HEART: S1, S2 positive. LUNGS: Clear to auscultation. ABDOMEN: Soft. Bowel sounds present. No organomegaly. EXTREMITIES: No edema, no cyanosis. NEUROLOGIC: Awake, alert, follows simple command. SKIN: Diffuse rash, a little less erythematous. Maculopapular. MEDICATIONS: Benadryl, Claritin, Coumadin, Cymbalta, Elocon on affected areas, Lipitor, Pepcid, Sing ulair, Solu-Medrol, Topamax, Zestril. LABORATORY DATA: INR is 1.79. ASSESSMENT AND PLAN: The patient is a 65-year-old female complaining of insomnia, used to use restor il 30 mg, I offer mg, but as per patient, she is taking 30 mg at home. Had a drug related reac tion, diffuse type, slowly improving, history of pulmonary embolism, migraine, has sleep apnea syndro me, ptosis of the right eye, third nerve palsy of the right side. We will continue Coumadin. We el l give her Restoril. Gastrointestinal and deep venous thrombosis prophylaxis. Will try to transfer the patient to TCU. INR is 1.79, PT is 19.3. Repeat labs. Will followup. Lucy Rajput MD cc: [id number] TT: 08/17/2016 21:30:52 Confirmation # [id number] Dictation # [id number] dn
[2016-08-17] MEDS ORDERED: TEMAZEPAM 30 MG PO SCH (22:00)
[2016-08-17] MEDS ORDERED: Magnesium Hydroxide Susp 30 ml UD PO STA (22:19)
--- NOTE | 2016-08-17 22:31 | CP.PCM.PN ---
Subjective - Date & Time of Evaluation Date of Evaluation: 08/17/16 Time of Evaluation: 22:23 - Subjective Subjective: S: Patient was seen at bedside. States that she has not had no bowel movement since Saturday. Has little discomfort in belly. Last bowel movement was normal. Has been eating and drinking well. Has no other complaints now. Denies chest pain, nausea , diarrhea. Pertinent medical record was reviewed. O:VSS. Last Vital Signs 3 Temp 98.1 F 08/17/16 16:00 Pulse 70 08/17/16 16:00 Resp 20 08/17/16 16:00 BP 150/89 08/17/16 16:00 Pulse Ox 98 08/17/16 16:00 Awake, alert, not in distress. ABD:No distension. A:Constipation. P: MOM 30 CC PO x 1. Objective - Vital Signs/Intake and Output Vital Signs (last 24 hours): Temp Pulse Resp BP Pulse Ox 98.1 F 70 20 150/89 98 08/17/16 16:00 08/17/16 16:00 08/17/16 16:00 08/17/16 16:00 08/17/16 16:00 Intake and Output: 08/17/16 08/18/16 18:59 06:59 Intake Total 640 960 Balance 640 960 - Medications Medications: Current Medications Atorvastatin Calcium (Lipitor) 10 mg PO DIN [facility] Last Admin: 08/17/16 17:29 Dose: 10 mg Diphenhydramine HCl (Benadryl) 50 mg PO Q4 [facility] Last Admin: 08/17/16 20:26 Dose: 50 mg Duloxetine HCl (Cymbalta) 60 mg PO DAILY [facility] Last Admin: 08/17/16 10:49 Dose: 60 mg Famotidine (Pepcid) 40 mg PO HS [facility] Last Admin: 08/17/16 21:31 Dose: 40 mg Home Med (Home Med) 1 unit PO HS [facility] Last Admin: 08/17/16 21:33 Dose: 1 unit Lisinopril (Zestril) 40 mg PO DAILY [facility] Last Admin: 08/17/16 10:50 Dose: 40 mg Loratadine (Claritin) 10 mg PO DAILY [facility] Last Admin: 08/17/16 10:49 Dose: 10 mg Methylprednisolone (Solu-Medrol) 30 mg IVP Q12 [facility] Last Admin: 08/17/16 21:32 Dose: 30 mg Mometasone Furoate (Elocon Lotion) 0 ml TOP TID [facility] Last Admin: 08/17/16 17:30 Dose: 1 applic Montelukast Sodium (Singulair) 10 mg PO HS [facility] Last Admin: 08/17/16 21:31 Dose: 10 mg Topiramate (Topamax) 100 mg PO BID [facility] PRN Reason: Protocol Last Admin: 08/17/16 17:29 Dose: 100 mg Warfarin Sodium (Coumadin) 4 mg PO 1800 [facility] PRN Reason: Protocol Last Admin: 08/17/16 17:29 Dose: 4 mg - Labs Labs: PT 19.3 Seconds (9.9-11.8) H 08/17/16 07:40 INR 1.79 (0.93-1.08) H 08/17/16 07:40 APTT 52.4 Seconds (23.7-30.8) H 08/13/16 15:45
[2016-08-18 07:52] VITALS: BP 149/93; PULSE 57; TEMP 98.6; O2SAT 95
[2016-08-18 08:27] LABS: HEMATOCRIT 44.6 % (36.0-48.0); MEAN CELL VOLUME 89.9 fL (80.0-105.0); MEAN CORPUSCULAR HEMOGLOBIN 29.6 pg (25.0-35.0); MEAN PLATELET VOLUME 11.7 fl (7.0-11.0); RED CELL DISTRIBUTION WIDTH 14.3 % (11.5-14.5); WHITE BLOOD COUNT 9.9 10^3/ul (4.5-11.0)
[2016-08-18 08:36] LABS: INR 2.18 (0.93-1.08)
[2016-08-18 08:54] LABS: BLOOD UREA NITROGEN 18 mg/dL (7-21); CALCIUM 8.9 mg/dL (8.4-10.5); CARBON DIOXIDE 28 mmol/L (21-33); CHLORIDE 104 mmol/L (95-110); GFR AFRICAN-AMERICAN > 60; GLUCOSE,RANDOM 78 mg/dL (70-110); POTASSIUM 4.4 mmol/L (3.6-5.0); SODIUM 140 mmol/L (132-148)
[2016-08-18] MEDS: MethylPREDNISolone 40 mg Vial IVP SCH (09:39)
[2016-08-18] MEDS: MOMETASONE 0.1% TOP SCH (09:40)
--- NOTE | 2016-08-18 16:30 | PN ---
DATE: 08/18/2016 The patient seen earlier, in 575, bed 2. No fevers and chills, no nausea. PHYSICAL EXAMINATION: VITAL SIGNS: Temperature is 98, blood pressure is 140/80, respiratory rate of 20, heart rate of 57. HEENT: Unremarkable. NECK: Supple. LUNGS: Have decreased breath sounds. HEART: Normal S1, S2. ABDOMEN: Soft and nontender. LABORATORY EXAMINATION: Reveals a white count of 9, hemoglobin of 14. Chemistries are noted. LFTs are normal. Urinalysis is unremarkable. KENRICK is negative ASSESSMENT AND PLAN: A 65-year-old female with diffuse maculopapular rash, drug related; hypertensio n, chronic obstructive pulmonary disease, migrating arthritis, anxiety. On steroids off of antibioti cs. We will follow with you. Kristopher Busch MD cc: [id number] TT: 08/18/2016 16:29:12 Confirmation # [id number] Dictation # [id number] mn
--- NOTE | 2016-08-19 16:20 | DS ---
The patient is a 65-year-old lady, was admitted in [facility] on 08/13/2016 , discharged to TCU on 08/18/2016. CHIEF COMPLAINT: Rash on the body. 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 Came to [facility] with rash all over the body except face. According to patient , she went for orthopedic test for Dr. Vega to see the infection of the knee. The patient had test negative for the infection, but she got pleuritic rash that started just after the test and she changed her blood pressure medicine also. We admitted the patient on medical floor. We do not have services tech available, but we called ID and critical care. The patient was given steroids. She got better. Now, patient is getting tapering dose of steroid. Transferred to TCU for the completion of the treatment. PAST MEDICAL HISTORY: Hypertension, COPD, migraine, arthritis, gastritis, anxiety, left knee replacement. FAMILY HISTORY: Father and mother noncontributory. HABITS: Former smoker. No alcohol, no substance abuse. ALLERGIES: THE PATIENT IS ALLERGIC WITH KETOROLAC. HOME MEDICATIONS: Reviewed by me. REVIEW OF SYSTEMS: The patient seen and examined on the bedside, looks comfortable. No nausea, vomiting, diarrhea. No hematuria, no hematochezia. No swelling of the legs. No chest pain, no palpitation. Rash is improving. PHYSICAL EXAMINATION: VITAL SIGNS: Temperature 98.6, pulse 57, blood pressure 149/93, respiratory rate 20. HEENT: Head normocephalic, atraumatic. Eyes: PERRLA. Extraocular muscles intact. Conjunctivae clear. Nose patent. Mucous membranes moist. NECK: Supple. No carotid bruit, no JVD, no thyromegaly. CHEST: Bilaterally symmetrical. HEART: S1 and S2 positive. LUNGS: Clear to auscultation. ABDOMEN: Soft. Bowel sounds positive. No organomegaly. EXTREMITIES: No edema, no cyanosis. NEUROLOGIC: The patient is awake, alert, moving all 4 extremities. No focal deficit. SKIN: Maculopapular rash all over the body, but improving. MEDICATIONS: Benadryl, Claritin, Coumadin, Cymbalta, Elocon, Lipitor, furosemide, Singulair, Solu-Medrol, Topamax, Zestril. LABORATORIES: White cells 9.9, hemoglobin 14.7, hematocrit 44.6, platelets 247. Sodium 140, potassium 4.4, BUN noted creatinine 0.8. ASSESSMENT AND PLAN: The patient is a 65-year-old lady. KENRICK screen is negative. Has drug reaction with diffuse maculopapular rash, which is slowly improving with steroids, has history of pulmonary embolism, is on Coumadin, migraine headache, right eye fifth nerve palsy ptosis, sleep apnea syndrome, hypertension. The patient is getting Coumadin, checking INR. ID is on the case. The patient is getting tapering dose of steroids. Continue Singulair, Zyrtec, Benadryl. We transferred patient to TCU for continuity of caring and for tapering dose of steroids. Constipation, insomnia. Gastrointestinal and deep venous thrombosis prophylaxis. Repeat labs. We will follow up. Lucy Rajput MD cc: [id number] TT: 08/19/2016 16:19:40 en MTDD
== END 2016-08-18 13:50 | DRG 607 ==
LOC: ED 15:16 → ERH 19:26 → 5RSO 21:57 → OBSVTOIN 08-14 23:00
PROVIDERS: ADMIT Internal Medicine; ATTEND Internal Medicine
DX: L30.9 Dermatitis, unspecified (principal); I10 Essential (primary) hypertension; J44.9 Chronic obstructive pulmonary disease, unspecified; E05.90 Thyrotoxicosis, unspecified without thyrotoxic crisis or storm; E78.00 Pure hypercholesterolemia, unspecified; F41.9 Anxiety disorder, unspecified; G43.909 Migraine, unspecified, not intractable, without status migrainosus; G47.30 Sleep apnea, unspecified; H54.51 Low vision, right eye, normal vision left eye; Z79.01 Long term (current) use of anticoagulants; E66.9 Obesity, unspecified; Z68.38 Body mass index [BMI] 38.0-38.9, adult; K59.00 Constipation, unspecified; G47.00 Insomnia, unspecified; M19.90 Unspecified osteoarthritis, unspecified site; Z79.899 Other long term (current) drug therapy; Z86.711 Personal history of pulmonary embolism; Z87.891 Personal history of nicotine dependence; Z96.652 Presence of left artificial knee joint; Z88.6 Allergy status to analgesic agent; R40.2412 Glasgow coma scale score 13-15, at arrival to emergency department; T50.8X5A Adverse effect of diagnostic agents, initial encounter; H02.431 Paralytic ptosis of right eyelid; T46.1X5A Adverse effect of calcium-channel blockers, initial encounter; Z98.890 Other specified postprocedural states; L29.9 Pruritus, unspecified

== ENCOUNTER 2016-08-18 13:52 | Inpatient (IN) | payer OTHER, MEDICAID ==
[2016-08-18 14:37] VITALS: BMI 36.2
[2016-08-18] MEDS: MOMETASONE 0.1% TOP SCH (18:00)
[2016-08-18] MEDS: MethylPREDNISolone 40 mg Vial IVP SCH (21:31)
[2016-08-19 07:50] LABS: ADD MANUAL DIFF? NO
[2016-08-19 07:56] LABS: BASO # 0.01 K/mm3 (0.0-2.0); BASO % 0.1 % (0.0-3.0); EOS % 0.2 % (1.5-5.0); GRAN # 10.38 (1.4-6.5); GRAN % 74.9 % (50.0-68.0); HEMATOCRIT 45.3 % (36.0-48.0); LYMPH # 2.5 (1.2-3.4); LYMPH % 17.9 % (22.0-35.0); MEAN CELL VOLUME 89.3 fL (80.0-105.0); MEAN CORPUSCULAR HEMOGLOBIN 29.6 pg (25.0-35.0); MEAN CORPUSCULAR HGB CONC 33.1 g/dl (31.0-37.0); MEAN PLATELET VOLUME 10.8 fl (7.0-11.0); MONO % 6.9 % (1.0-6.0); PLATELET COUNT 287 10^3/uL (120.0-450.0); RED CELL DISTRIBUTION WIDTH 14.4 % (11.5-14.5); WHITE BLOOD COUNT 13.9 10^3/ul (4.5-11.0)
[2016-08-19 08:02] LABS: ALB/GLOB RATIO 1.6 (1.1-1.8); ALKALINE PHOSPHATASE 95 U/L (38-133); ALT/SGPT 33 U/L (7-56); AST/SGOT 19 U/L (15-39); BILIRUBIN,TOTAL 0.5 mg/dL (0.2-1.3); BLOOD UREA NITROGEN 20 mg/dL (7-21); CALCIUM 9.5 mg/dL (8.4-10.5); CARBON DIOXIDE 28 mmol/L (21-33); CHLORIDE 103 mmol/L (98-107); GFR AFRICAN-AMERICAN > 60; GLUCOSE,RANDOM 81 mg/dL (70-110); POTASSIUM 4.8 mmol/L (3.6-5.0); SODIUM 140 mmol/L (132-148); TOTAL PROTEIN 7.2 g/dL (5.8-8.3)
[2016-08-19 08:06] LABS: INR 2.31 (0.93-1.08)
[2016-08-19] MEDS: MOMETASONE 0.1% TOP SCH ×3 (10:17→17:25)
[2016-08-19] MEDS: MethylPREDNISolone 40 mg Vial IVP SCH ×2 (10:53→21:23)
--- NOTE | 2016-08-20 07:30 | HP ---
CHIEF COMPLAINT: Rash on the body. HISTORY OF PRESENT ILLNESS: The patient is a 65-year-old lady with past medical history of hypertens ion, COPD, migraine, 6th nerve palsy on the right side, ptosis on the right side, arthritis, gastriti s, who came to [facility] with a rash all over the body. Actual cause of rash is unknown, but looks like a drug reaction because she change her blood pressure medicine. She got a test for her in fection. We admitted the patient, called ID consult. Steroids given, tapering dose. The patient st arted feeling better. Now we are tapering doses and transferred patient to TCU for continuity of car e. PAST MEDICAL HISTORY: Hypertension, COPD, migraines, arthritis, gastritis, anxiety, left knee replac ement. FAMILY HISTORY: Father and mother noncontributory. HABITS: Former smoker. No alcohol, no substance abuse. ALLERGIES: THE PATIENT IS ALLERGIC WITH KETOROLAC. HOME MEDICATIONS: Reviewed by me. REVIEW OF SYSTEMS: The patient is seen and examined on the bedside. Looks comfortable. No nausea, vomiting, or diarrhea. No hematuria or hematochezia. No headache, no dizziness. No chest pain, no palpitation. No fever, no chills. Still has a rash, even it is improving. PHYSICAL EXAMINATION: VITAL SIGNS: Temperature 98.4, pulse 64, blood pressure 140/88, respiratory rate 18. HEENT: Head normocephalic, atraumatic. Eyes: PERRLA. Extraocular muscles intact. Conjunctivae ar e clear. Nose patent. Mucous membranes moist. NECK: Supple. No carotid bruit, JVD or thyromegaly. CHEST: Bilaterally symmetrical. HEART: S1, S2 positive. LUNGS: Clear to auscultation. ABDOMEN: Soft. Bowel sounds present. No organomegaly. EXTREMITIES: No edema, no cyanosis. NEUROLOGIC: The patient is awake, alert. Moving all 4 extremities. No focal deficits. SKIN: Has maculopapular rash. MEDICATIONS: Benadryl, Claritin, Coumadin, Cymbalta, Elocon cream, Lipitor, Pepcid, Singulair, Solu- Medrol, Topamax, Zestril. LABORATORY DATA: White blood cells 13.9, hemoglobin 15.0, hematocrit 45.3, platelets 287. Sodium 14 0, potassium 4.8, BUN 20, creatinine 0.8. AST 19, ALT 33. ASSESSMENT AND PLAN: The patient is a 65-year-old lady with leukocytosis, hypertension, hypercholest erolemia, chronic obstructive pulmonary disease, migraine, arthritis, gastritis, anxiety, left knee r eplacement, right eye ptosis, 6th nerve palsy; drug reaction, diffuse maculopapular, improved with st eroid. Infectious disease was on the case. We cannot get help from dentist attendant because dermatolog ist is not available in [facility]. Getting Coumadin and getting tapering dose of steroids. Tr ansferred patient to TCU for continuity of care and for tapering dose of steroids. GI and DVT prophy laxis. Repeat labs. Will follow up. Lucy Rajput MD cc: [id number] TT: 08/20/2016 07:29:27 juan antonio
[2016-08-20] MEDS: MethylPREDNISolone 40 mg Vial IVP SCH ×2 (10:18→21:08)
[2016-08-20] MEDS: MOMETASONE 0.1% TOP SCH ×3 (10:21→18:29)
[2016-08-21] MEDS ORDERED: MethylPREDNISolone 40 mg Vial IVP SCH (00:03)
[2016-08-21 07:50] LABS: INR 2.61 (0.93-1.08)
--- NOTE | 2016-08-21 08:03 | PN ---
DATE: 08/20/2016 The patient was seen and examined, looks comfortable. Rash is getting better. No nausea, vomiting, diarrhea. No hematuria or hematochezia. No swelling of the leg. No chest pain, no palpitation. Ho headache, no dizziness. PHYSICAL EXAMINATION: VITAL SIGNS: Temperature 97.6, pulse 62, blood pressure 103/51, respiratory rate 18. HEENT: Head normocephalic, atraumatic. Eyes: PERRLA. Extraocular muscles intact. Conjunctivae clear. Nose patent. Mucous membrane moist. NECK: Supple. No carotid bruit, JVD or thyromegaly. CHEST: Bilaterally symmetrical. HEART: S1, S2 positive. LUNGS: Clear to auscultation. ABDOMEN: Soft. Bowel sounds + . No organomegaly. EXTREMITIES: No edema, no cyanosis. NEUROLOGIC: The patient is awake, alert, follows simple commands. MEDICATIONS: Benadryl, Claritin, Coumadin, Cymbalta, Elocon, Imdur, Lipitor, Pepcid, Singulair, Solu-Medrol, Topamax, Zestril. LABORATORY DATA: White blood cells 13.9, hemoglobin 15.0, hematocrit 45. platelets 287. Sodium 140, potassium 4.8, BUN 20, creatinine 0.8, glucose 50. ASSESSMENT AND PLAN: The patient is a 65-year-old lady with leukocytosis, improving, came with maculopapular rash on the whole body, improving, getting Solu-Medrol tapering doses, history of hypertension, chronic obstructive pulmonary disease, migraine, arthritis, gastritis, anxiety, left knee replacement. Getting physical therapy. Constipation is a problem. She got MiraLax, lactulose, but nothing was working. Today, second dose of lactulose was given. We will follow with that. Anxiety, gastritis, arthritis, migraine, right eye fifth nerve palsy, ptosis. Gastrointestinal and deep venous thrombosis prophylaxis. Repeat labs. We will follow up. Lucy Rajput MD cc: [id number] TT: 08/21/2016 08:02:37 Confirmation # [id number] Dictation # [id number] tn MTDD
[2016-08-21] MEDS: MOMETASONE 0.1% TOP SCH ×3 (10:26→17:52)
[2016-08-21 11:19] VITALS: RESP 18
[2016-08-21 17:06] VITALS: BP 138/94; PULSE 76; TEMP 98.7; O2SAT 96
--- NOTE | 2016-08-22 11:18 | DS ---
CHIEF COMPLAINT: Rash on the body. HISTORY OF PRESENT ILLNESS: The patient is a 65-year-old female with past medical history of hypertension, COPD, migraine, fifth nerve palsy on the right side, ptosis on the right side, arthritis, gastritis came to [facility] with the drug rash. Actual cause of rash is unknown, but it looks like a drug reaction. We admitted the patient. ID consult called, IV Solu-Medrol given. The patient improved, transferred to TCU for continuity of care for the tapering dose of Solu-Medrol. The patient improved. The patient was curious to go home, then I discharged home on 08/21/16 with tapering dose of prednisone. I discontinued the Solu-Medrol. PAST MEDICAL HISTORY: Hypertension, COPD, migraines, arthritis, gastritis, anxiety, left knee replacement. FAMILY HISTORY: Father and mother noncontributory. HABITS: Former smoker. No alcohol, no substance abuse. ALLERGIES: KETOROLAC. HOME MEDICATIONS: Reviewed by me. REVIEW OF SYSTEMS: The patient was seen and examined on the bedside, looks comfortable. No nausea, vomiting, or diarrhea. No hematuria or hematochezia, sitting on the chair, having dinner. Son was sitting on the bedside also. No fever, no chills, no shortness of breath. PHYSICAL EXAMINATION: VITAL SIGNS: Temperature 98.7, pulse 76, blood pressure 138/94, respiratory rate 18. HEENT: Head normocephalic, atraumatic. Eyes: PERRLA. Extraocular muscles intact. Conjunctivae clear. Nose patent. Mucous membranes moist. NECK: Supple. No carotid bruit, JVD, or thyromegaly. CHEST: Bilaterally symmetrical. HEART: S1, S2 positive. LUNGS: Clear to auscultation. ABDOMEN: Soft. Bowel sounds present. No organomegaly. EXTREMITIES: No edema, no cyanosis. NEUROLOGIC: The patient is awake, alert, moving all 4 extremities. No focal deficits. SKIN: Maculopapular rash that improved a lot. MEDICATIONS: Benadryl, Claritin, Coumadin, Cymbalta, Ecotrin, lactulose, Lipitor, Pepcid, Singulair, Solu-Medrol. LABORATORY DATA: White blood cells 13.9, hemoglobin 15.0, hematocrit 45.3, platelets 287. Sodium 140, potassium 4.8, BUN 20, creatinine 0.8. AST 19, ALT 33. hemoglobin 15.0, hematocrit 45.3, platelets 287. ASSESSMENT AND PLAN: The patient is a 65-year-old lady with leukocytosis came with maculopapular rash on the body - improved, got Solu-Medrol, tapering doses. History of hypertension, chronic obstructive pulmonary disease, migraine , arthritis, gastritis, anxiety, left knee replacement. Constipation was a problem, got MiraLax, lactulose that helped her a lot. Badly wants to go home. Discontinue Solu-Medrol. Sent home with her routine medication plus Benadryl , Singulair, tapering dose of prednisone. Will follow up in my office, and if rash persists - even traces, will follow up with the finger buffs assembler. Education done, and we will follow up. Lucy Rajput MD cc: [id number] TT: 08/22/2016 11:18:14 jn MTDD
== END 2016-08-21 19:10 | disposition home or self-care (01) | DRG 607 ==
LOC: TRCU 13:52
PROVIDERS: ADMIT Internal Medicine; ATTEND Internal Medicine
PROC: F07Z9FZ Gait Training/Functional Ambulation Treatment using Assistive, Adaptive, Supportive or Protective Equipment (ICD-10-PCS; principal; 2016-08-19)
PROC: F07M6ZZ Therapeutic Exercise Treatment of Musculoskeletal System - Whole Body (ICD-10-PCS; 2016-08-19)
DX: R21 Rash and other nonspecific skin eruption (principal); H49.21 Sixth [abducent] nerve palsy, right eye; I10 Essential (primary) hypertension; J44.9 Chronic obstructive pulmonary disease, unspecified; G43.909 Migraine, unspecified, not intractable, without status migrainosus; H02.401 Unspecified ptosis of right eyelid; M19.90 Unspecified osteoarthritis, unspecified site; K29.70 Gastritis, unspecified, without bleeding; T50.995A Adverse effect of other drugs, medicaments and biological substances, initial encounter; D72.829 Elevated white blood cell count, unspecified; E78.00 Pure hypercholesterolemia, unspecified; F41.9 Anxiety disorder, unspecified; Z96.652 Presence of left artificial knee joint; Z87.891 Personal history of nicotine dependence; K59.00 Constipation, unspecified

== ENCOUNTER 2017-01-02 14:42 | Inpatient (IN) | payer MEDICARE, MEDICAID, OTHER ==
[2017-01-02 14:43] VITALS: BMI 36.2
--- NOTE | 2017-01-02 16:07 | ED PDOC ---
Arrival/HPI - General Chief Complaint: Lower Extremity Problem/Injury Time Seen by Provider: 01/02/17 15:49 Historian: Patient - History of Present Illness Narrative History of Present Illness (Text): 01/02/17 16:04 this 66-year-old female with a past medical history of COPD, hypertension, migraine, PE, and asthma presents to this emergency Department complaining of bilateral lower extremities redness for 2-1/2 days. Patient stated redness started on her left lower extremities first. Patient noted intermittent chills within the last 2 days. Patient denies shortness of breath, chest pain, abdominal pain, headache, dizziness, inguinal pain, recent trauma, recent travel , sick contacts, or abnormal gait. Dr. Dean, TESS Previous admission on Dr. 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 wears glasses - Renal Hx Renal Disorder: No - Endocrine/Metabolic Hx Endocrine Disorders: No - Hematological/Oncological Hx Blood Disorders: No Hx AIDS: No - Integumentary Hx Dermatological Disorder: No - Musculoskeletal/Rheumatological Hx Arthritis: Yes - Gastrointestinal Hx Gastrointestinal Disorders: No - Genitourinary/Gynecological Hx Genitourinary Disorders: No Hx Reproductive Disorders: No - Psychiatric Hx Psychophysiologic Disorder: Yes Hx Anxiety: Yes Hx Emotional Abuse: (pt. stated no) Hx Physical Abuse: (pt stated no) Hx Substance Use: No - Surgical History Hx Joint Replacement: Yes (left knee) Other/Comment: colonoscopy S/p LTKR 07/12/2014 - Anesthesia Hx Anesthesia: Yes Hx Anesthesia Reactions: Yes (nausea) Hx Malignant Hyperthermia: No - Suicidal Assessment Feels Threatened In Home Enviroment: No Family/Social History - Physician Review Nursing Documentation Reviewed: Yes Family/Social History: Other (noncontributory) Smoking Status: Former Smoker Hx Alcohol Use: No Hx Substance Use: No Hx Substance Use Treatment: No Allergies/Home Meds Allergies/Adverse Reactions: Allergies ketorolac Allergy (Verified 08/18/16 16:41) SHORTNESS OF BREATH Home Medications: Home Meds Medication Instructions Recorded Confirmed Albuterol HFA [Ventolin HFA 90 1 puff IH DAILY 01/02/17 01/02/17 mcg/actuation (8 g)] Alprazolam [Xanax] 0.5 mg PO BID 01/02/17 01/02/17 DULoxetine [Cymbalta] 90 mg PO DAILY 01/02/17 01/02/17 Fluticasone/Salmeterol 250/50 1 dsk IH DAILY 01/02/17 01/02/17 [Advair Diskus] Lisinopril [Zestril] 40 mg PO DAILY 01/02/17 01/02/17 Omeprazole Magnesium [Prilosec Otc] 40 mg PO DAILY 01/02/17 01/02/17 Simvastatin [Zocor] 20 mg PO DAILY 01/02/17 01/02/17 Temazepam [Restoril] 30 mg PO DAILY 01/02/17 01/02/17 Topiramate [Topamax] 100 mg PO BID 01/02/17 01/02/17 Warfarin [Coumadin] 4 mg PO DAILY 01/02/17 01/02/17 amLODIPine [Norvasc] 10 mg PO DAILY 01/02/17 01/02/17 Review of Systems - Review of Systems Constitutional: Other (chills). absent: Fatigue, Weight Change, Fevers, Night Sweats Eyes: Normal ENT: Normal Respiratory: Normal. absent: SOB, Cough Cardiovascular: Normal. absent: Chest Pain, Palpitations Gastrointestinal: Normal. absent: Abdominal Pain, Nausea, Vomiting Genitourinary Female: Normal. absent: Dysuria, Frequency, Hematuria Musculoskeletal: Other (see HPI) Skin: Cellulitis. absent: Rash Neurological: Normal. absent: Headache, Dizziness, Focal Weakness, Gait Changes , Speech Changes, Facial Droop, Disequilibrium, Seizure Endocrine: Normal Hemo/Lymphatic: Normal Psychiatric: Normal Physical Exam Vital Signs Temp Pulse Resp BP Pulse Ox 01/02/17 14:57 98.4 F 100 H 18 129/74 94 L Temperature: Afebrile Blood Pressure: Normal Pulse: Regular Respiratory Rate: Normal Appearance: Positive for: Well-Appearing, Non-Toxic, Comfortable Pain Distress: None Mental Status: Positive for: Alert and Oriented X 3 - Systems Exam Head: Present: Atraumatic, Normocephalic Pupils: Present: PERRL Extroacular Muscles: Present: EOMI Conjunctiva: Present: Normal Mouth: Present: Moist Mucous Membranes Neck: Present: Normal Range of Motion Respiratory/Chest: Present: Clear to Auscultation, Good Air Exchange. No: Respiratory Distress, Accessory Muscle Use Cardiovascular: Present: Regular Rate and Rhythm, Normal S1, S2. No: Murmurs Abdomen: Present: Normal Bowel Sounds. No: Tenderness, Distention, Peritoneal Signs Back: Present: Normal Inspection Upper Extremity: Present: Normal Inspection. No: Cyanosis, Edema Lower Extremity: Present: NORMAL PULSES, Normal ROM, Tenderness, Swelling, Erythema, Temperature Abnormalties, Neurovascularly Intact, Capillary Refill < 2 s, Other (bilateral lower leg erythema. Left lower extremities worse than right. Warmth touch. No abscess, or streaking erythema. pedal pulse is normal, +2 bi-lateral). No: Edema, CALF TENDERNESS, Deformity Neurological: Present: GCS=15, CN II-XII Intact, Speech Normal, Motor Func Grossly Intact, Normal Sensory Function, Normal Cerebellar Funct, Gait Normal Skin: Present: Warm, Dry, Normal Color, Erythematous (see lower extremity). No : Rashes Psychiatric: Present: Alert, Oriented x 3, Normal Insight, Normal Concentration Medical Decision Making ED Course and Treatment: 01/02/17 17:17 GLEN Jernigan accidentally spilled first order of morphine. A new ordered was entered 01/02/17 18:[address] Rajput regarding patient's with left lower leg cellulitis. I reviewed labs, and venous Doppler with Dr. Rajput. She recommended that Dr. Rodriguez. Dr. Rajput agrees with plan for admission. I spoke patient who agrees with admission into the hospital for cellulitis. Re-evaluation Time: 18:54 Reassessment Condition: Re-examined, Improving,but remains with symptoms - Lab Interpretations Lab Results: 01/02/17 16:37 01/02/17 16:37 Lab Results 01/02/17 17:09: Urine Color Yellow, Urine Appearance Clear, Urine pH 6.0, Ur Specific [place] 1.015, Urine Protein Negative, Urine Glucose (UA) Negative, Urine Ketones Negative, Urine Blood Negative, Urine Nitrate Negative, Urine Bilirubin Negative, Urine Urobilinogen 0.2, Ur Leukocyte Esterase Trace H, Urine RBC 0 - 2, Urine WBC 0 - 2, Ur Epithelial Cells 0 - 2, Urine Bacteria Occ 01/02/17 16:37: Sodium 140, Chloride 100, Potassium 4.0, Carbon Dioxide 33, Anion Gap 11, BUN 17, Creatinine 0.6 L, Est GFR ( Amer) > 60, Est GFR ( Non-Af Amer) > 60, Random Glucose 120 H, Calcium 8.5, Phosphorus 3.5, Magnesium 2.1, Total Bilirubin 0.4, AST 30, ALT 24, Alkaline Phosphatase 100, Lactate Dehydrogenase 695, Total Creatine Kinase 269 H, CK-MB (CK-2) 2.8, CK-MB (CK-2) % Cancelled, Troponin I < 0.01, NT-Pro-B Natriuret Pep 67.5, Total Protein 6.6, Albumin 3.9, Globulin 2.7, Albumin/Globulin Ratio 1.4 01/02/17 16:37: pO2 59 H, VBG pH 7.24 L, VBG pCO2 79.0 H*, VBG HCO3 33.9 H, VBG Total CO2 36.3 H, VBG O2 Sat (Calc) 92.7 H, VBG Base Excess 3.9 H, VBG Potassium 4.5, Sodium 138.0, Chloride 103.0, Glucose 128 H, Lactate 2.0, FiO2 21.0, Venous Blood Potassium 4.5 01/02/17 16:37: PT 32.7 H*, INR 3.03 H, APTT 49.3 H 01/02/17 16:37: WBC 7.6 D, RBC 4.22, Hgb 12.3, Hct 38.7, MCV 91.7, MCH 29.1, MCHC 31.8, RDW 14.0, Plt Count 190, MPV 11.0, Gran % 61.3, Lymph % (Auto) 25.9, O'Brien % (Auto) 7.6 H, Eos % (Auto) 4.7, Baso % (Auto) 0.5, Gran # 4.65, Lymph # 2.0, O'Brien # 0.6, Eos # 0.4, Baso # 0.04, ESR 20 I have reviewed the lab results: Yes Interpretation: Abnormal lab values - RAD Interpretation Narrative RAD Interpretations (Text): 01/02/17 18:55 ccession No. : [id number] Patient Name / ID : BERTA Luz / [id number] Exam Date : 01/02/2017 16:33:04 ( Approved ) Study Comment : Sex / Age : F / [id number] Creator : Juliette Cr Dictator : Juliette Cr Pickers Material Handlers : Real Estate Operations Manager : Juliette Cr Approver2 : Report Date : 01/02/2017 16:56:37 My Comment : HISTORY: Sepsis Patient COMPARISON: 04/07/2014 FINDINGS: LUNGS: No active pulmonary disease. PLEURA: No significant pleural effusion identified, no pneumothorax apparent. CARDIOVASCULAR: Mild cardiomegaly. Tortuous ectatic thoracic aorta findings is similar. OSSEOUS STRUCTURES: Right hip prosthesis VISUALIZED UPPER ABDOMEN: Normal. OTHER FINDINGS: Bilateral calcified breast implants -similar IMPRESSION: No active disease. Radiology Orders: 01/02/17 16:13 CHEST PORTABLE [RAD] Stat 01/02/17 16:40 DUPLEX LOWER EXTRM VEIN BILAT [US] Stat - EKG Interpretation Interpreted by ED Physician: Yes (NSR @ 79 bpm. Normal interval) Type: 12 lead EKG Comparison: No previous EKG avail. - Medication Orders Current Medication Orders: Discontinued Medications Vancomycin HCl (Vancomycin 1gm) 1 gm in 250 mls @ 167 mls/hr IVPB STAT STA PRN Reason: Protocol Stop: 01/02/17 17:41 Last Admin: 01/02/17 18:41 Dose: 167 mls/hr eMAR Start Stop Document 01/02/17 18:41 MR (Rec: 01/02/17 18:42 MR [id number]) Intravenous Solution Start Date 01/02/17 Start Time 18:41 End Date 01/02/17 End time 20:11 Total Infusion Time 90 Piperacillin Sod/Tazobactam Sod (Zosyn 4.5 Gm In Ns 100ml) 4.5 gm in 100 mls @ 200 mls/hr IVPB STAT STA PRN Reason: Protocol Stop: 01/02/17 16:41 Last Admin: 01/02/17 17:18 Dose: 200 mls/hr eMAR Start Stop Document 01/02/17 17:18 MR (Rec: 01/02/17 17:19 MR [id number]) Intravenous Solution Start Date 01/02/17 Start Time 17:19 End Date 01/02/17 End time 17:49 Total Infusion Time 30 Morphine Sulfate (Morphine) 2 mg IVP STAT STA Stop: 01/02/17 16:53 Last Admin: 01/02/17 17:19 Dose: Morphine Sulfate (Morphine) 2 mg IVP STAT STA Stop: 01/02/17 17:18 Last Admin: 01/02/17 17:29 Dose: 2 mg MAR Pain Assessment Document 01/02/17 17:29 MS (Rec: 01/02/17 17:30 MS [id number]) Pain Reassessment Is this a pain reassessment? No Sleep Is patient sleeping during reassessment? No Presence of Pain Presence of Pain Yes Pain Scale Used Pain Scale Used Numeric Location Left, Right or Bilateral Bilateral Upper or Lower Lower Pain Location Body Site Leg Description Description Constant Intensity of Pain at present 8 Pain Behavior Irritability Facial Grimacing Alleviating Factors/Management Medication Techniques Elevation Alleviating Factors Medication IVP Administration Document 01/02/17 17:29 MS (Rec: 01/02/17 17:30 MS [id number]) Charges for Administration # of IVP Administrations 1 Disposition/Present on Arrival - Present on Arrival Any Indicators Present on Arrival: No History of DVT/PE: No History of Uncontrolled Diabetes: No Urinary Catheter: No History of Decub. Ulcer: No History Surgical Site Infection Following: None - Disposition Have Diagnosis and Disposition been Completed?: Yes Diagnosis: Cellulitis of leg without foot, left Disposition: HOSPITALIZED Disposition Time: 18:56 Patient Plan: Admission Condition: STABLE Discharge Instructions (ExitCare): Cellulitis (ED) Referrals: PCP,NO [Primary Care Provider] - Follow up with primary Forms: [employer] (Tajik)
[2017-01-02] MEDS ORDERED: Piperacill/Tazo 4.5gm in NS 4.5 GM/100 ML BAG IVPB STA (16:12)
[2017-01-02] MEDS ORDERED: Vancomycin 1gm in NS 250ml 1 GM/250 ML BAG IVPB STA (16:12)
[2017-01-02] MEDS ORDERED: Morphine 2 mg/ml ISec IVP STA ×2 (16:52→17:17)
[2017-01-02 16:56] LABS: VENOUS BLOOD GAS BASE EXCESS 3.9 mmol/L (0.0-2.0); VENOUS BLOOD PH 7.24 (7.32-7.43)
[2017-01-02 16:57] LABS: BASO # 0.04 K/mm3 (0.0-2.0); BASO % 0.5 % (0.0-3.0); EOS # 0.4 (0.0-0.7); EOS % 4.7 % (1.5-5.0); GRAN # 4.65 (1.4-6.5); GRAN % 61.3 % (50.0-68.0); HEMATOCRIT 38.7 % (36.0-48.0); LYMPH % 25.9 % (22.0-35.0); MEAN CELL VOLUME 91.7 fl (80.0-105.0); MEAN CORPUSCULAR HEMOGLOBIN 29.1 pg (25.0-35.0); MEAN CORPUSCULAR HGB CONC 31.8 g/dl (31.0-37.0); MONO # 0.6 (0.1-0.6); MONO % 7.6 % (1.0-6.0); WHITE BLOOD COUNT 7.6 10^3/ul (4.5-11.0)
--- NOTE | 2017-01-02 16:58 | RAD ---
HISTORY: Sepsis Patient COMPARISON: 04/07/2014 FINDINGS: LUNGS: No active pulmonary disease. PLEURA: No significant pleural effusion identified, no pneumothorax apparent. CARDIOVASCULAR: Mild cardiomegaly. Tortuous ectatic thoracic aorta findings is similar. OSSEOUS STRUCTURES: Right hip prosthesis VISUALIZED UPPER ABDOMEN: Normal. OTHER FINDINGS: Bilateral calcified breast implants -similar IMPRESSION: No active disease.
[2017-01-02 17:02] LABS: INR 3.03 (0.93-1.08); PARTIAL THROMBOPLASTIN TIME 49.3 Seconds (23.7-30.8)
[2017-01-02 17:12] LABS: URINE BILIRUBIN NEGATIVE (NEGATIVE); URINE BLOOD NEGATIVE (NEGATIVE); URINE GLUCOSE (UA) NEGATIVE (NEGATIVE); URINE KETONE NEGATIVE (NEGATIVE); URINE LEUKOCYTE ESTERASE TRACE Leu/uL (NEGATIVE); URINE PROTEIN NEGATIVE mg/dL (<30 mg/dL); URINE UROBILINOGEN 0.2 E.U./dL (<1 E.U./dL)
[2017-01-02 17:13] LABS: ALB/GLOB RATIO 1.4 (1.1-1.8); ALKALINE PHOSPHATASE 100 U/L (38-126); ALT/SGPT 24 U/L (7-56); AST/SGOT 30 U/L (14-36); BILIRUBIN,TOTAL 0.4 mg/dL (0.2-1.3); BLOOD UREA NITROGEN 17 mg/dL (7-21); CALCIUM 8.5 mg/dL (8.4-10.5); CARBON DIOXIDE 33 mmol/L (21-33); CHLORIDE 100 mmol/L (98-107); GFR AFRICAN-AMERICAN > 60; GLUCOSE,RANDOM 120 mg/dL (70-110); MAGNESIUM 2.1 mg/dL (1.7-2.2); PHOSPHOROUS 3.5 mg/dL (2.5-4.5); SODIUM 140 mmol/L (132-148); TOTAL PROTEIN 6.6 g/dL (5.8-8.3)
[2017-01-02 17:17] LABS: URINE APPEARANCE CLEAR (CLEAR); URINE COLOR YELLOW (YELLOW)
[2017-01-02 17:25] LABS: URINE BACTERIA OCC (NEG); URINE EPITHELIAL CELLS 0 - 2 /hpf (0-5); URINE RBC 0 - 2 /hpf (0-2); URINE WBC 0 - 2 /hpf (0-6)
[2017-01-02 17:26] LABS: TROPONIN I < 0.01 ng/mL
--- NOTE | 2017-01-02 19:14 | US ---
HISTORY: Leg pain and swelling. Evaluate for DVT PHYSICIAN(S): Al Slaughter MD. TECHNIQUE: Duplex sonography and color-flow Doppler with graded compression were used to evaluate the deep venous systems of both lower extremities. The exam is limited by body habitus and edema P FINDINGS: The visualized deep venous systems of both lower extremities are sonographically normal and compressible. Normal wave forms and augmentation are seen. There is no sonographic evidence for deep venous thrombosis in the visualized segments of both lower extremities. IMPRESSION: No sonographic evidence for deep venous thrombosis in the visualized segments of both lower extremities.
[2017-01-03] MEDS: Piperacillin/Tazobact 2.25gm 2.25 GM/100 ML BAG IVPB SCH ×2 (00:46→06:19)
[2017-01-03] MEDS: HYDROmorphone 0.5 mg/0.5 ml ISec IVP PRN ×4 (00:48→19:00)
--- NOTE | 2017-01-03 06:51 | HP ---
CHIEF COMPLAINT: Lower extremity redness, warm and tender. HISTORY OF PRESENT ILLNESS: Ms. Ynes Johns is 66-year-old female with past medical history of COPD, hypertension, migraine, PE, and asthma, came to the emergency room with complaining about bilateral lower extremity pressure, redness and warmth for almost 2-1/2 days. The patient states the redness started on her left lower extremity first, but the patient noted intermittent chills within the last 2 days. The patient denies shortness of breath. No chest pain. No abdominal pain. No nausea, vomiting, diarrhea. No headache. No dizziness. No fever. No chills. No hematuria or hematochezia. No recent trauma. No recent travel. No sick contact or abnormal gait. The patient is admitted and seen in the emergency room. I given discussion with the ER physician, I did answer call. PAST MEDICAL HISTORY: COPD, pulmonary embolism, migraine, partially vision right eye blindness, left eye has no problem, anxiety, left knee replacement, PE, DVT. FAMILY HISTORY: Father and mother noncontributory. SOCIAL HISTORY: Former smoking, now no more smoking. No drug. No ethanol. ALLERGIES: THE PATIENT IS ALLERGIC WITH KETOROLAC. HOME MEDICATIONS: Xanax, Ventolin, Cymbalta, Advair, lisinopril, Prilosec, Zocor, temazepam, Topamax, Coumadin and Norvasc. REVIEW OF SYSTEMS: The patient is seen and examined on the bedside in the ER. Son and daughter were standing on the bedside. The patient had swelling and redness of the lower extremities. Sometimes feeling chills and feverish. No headache. No dizziness. No hematuria or hematochezia. No dysuria. No abdominal pain. No chest pain or palpitation. No focal weakness. No gait change. No speech change. No disequilibrium. PHYSICAL EXAMINATION: VITAL SIGNS: Temperature 98.4, pulse 100, respiratory rate 18, blood pressure 129/74 pulse oximetry 94. HEENT: Head is normocephalic and atraumatic. Eyes; PERRLA. Extraocular muscles are intact. Conjunctivae are clear. Nose is patent. Mucous membrane moist. NECK: Supple. No carotid bruits. No JVD or thyromegaly. CHEST: Bilaterally symmetrical. HEART: S1 and S2 positive. LUNGS: Clear to auscultation. ABDOMEN: Soft. Bowel sounds present. No organomegaly. EXTREMITIES: Positive edema, erythema, redness, warm, swelling of the legs. No cyanosis. NEUROLOGICAL: The patient is awake and alert. Moving all four extremities. No focal deficits. LABORATORY DATA: White blood cells 7.6, hemoglobin 12.3, hematocrit 38.7, platelets 119. Sodium 140, potassium 4.0, BUN 17, creatinine 0.6 and glucose 120. ASSESSMENT AND PLAN: Ms. Ynes Johns is a 66-year-old female admitted with cellulitis of both lower extremities, history of chronic obstructive pulmonary disease, hypertension, migraine, pulmonary embolism, asthma, insomnia. Ultrasound of the both extremities done by Dr. Al Slaughter. No evidence of deep venous thrombosis in the basilar segment of both lower extremities. Discussion done with the patient's son, daughter and ER physician. Antibiotics given. ID consult called. Continue antibiotics as per ID. Gastrointestinal and deep venous thrombosis prophylaxis. Continue Coumadin. We will follow up. Lucy Rajput MD
[2017-01-03 07:04] LABS: HEMATOCRIT 39.4 % (36.0-48.0); MEAN CELL VOLUME 91.4 fl (80.0-105.0); MEAN CORPUSCULAR HEMOGLOBIN 28.5 pg (25.0-35.0); MEAN CORPUSCULAR HGB CONC 31.2 g/dl (31.0-37.0); MEAN PLATELET VOLUME 10.8 fl (7.0-11.0); WHITE BLOOD COUNT 5.2 10^3/ul (4.5-11.0)
[2017-01-03 07:14] LABS: INR 2.51 (0.93-1.08)
[2017-01-03 07:29] LABS: IRON 82 ug/dL (45-180)
[2017-01-03] MEDS: Budesonide 0.5 mg/2 ml Inhal Susp UD IH SCH ×2 (07:37→20:52)
[2017-01-03] MEDS: Arformoterol 15 mcg/2 ml Inh Sol IH SCH ×2 (07:37→20:52)
[2017-01-03 07:42] LABS: BLOOD UREA NITROGEN 11 mg/dL (7-21); CALCIUM 8.5 mg/dL (8.4-10.5); CARBON DIOXIDE 32 mmol/L (21-33); CHLORIDE 104 mmol/L (98-107); CHOLESTEROL 144 mg/dL (130-200); GFR AFRICAN-AMERICAN > 60; GLUCOSE,RANDOM 87 mg/dL (70-110); POTASSIUM 3.9 mmol/L (3.6-5.0); SODIUM 143 mmol/L (132-148)
[2017-01-03] MEDS: Pantoprazole 40 mg EC Tab PO SCH (07:42)
[2017-01-03] MEDS ORDERED: Non Formulary Medication (Simvastatin [Zocor] 20 MG) PO SCH (10:00)
[2017-01-03] MEDS ORDERED: Fluticasone-Salmeterol 250-50mcg Diskus IH SCH (10:00)
[2017-01-03] MEDS ORDERED: Albuterol HFA 90 mcg/actuation (8 g) IH SCH (10:00)
[2017-01-03] MEDS ORDERED: OMEPRAZOLE MAGNESIUM 40 MG PO SCH (10:00)
[2017-01-03] MEDS ORDERED: Non Formulary Medication (Warfarin [Coumadin] 4 MG) PO SCH (10:00)
[2017-01-03] MEDS: Albuterol 0.083% Inhal Sol (2.5 mg/3 mL) UD IH SCH (11:06)
--- NOTE | 2017-01-03 11:14 | CARD ---
APPROVED REPORT EKG Measurement Heart [id number] CT 148P0 [id number] <Conclusion> Normal sinus rhythm Normal ECG
[2017-01-03] MEDS: Piperacillin/Tazobact 3.375 gm 100 ML IVPB SCH ×2 (11:49→17:32)
[2017-01-03 13:07] LABS: FOLATE > 20.0 ng/mL
--- NOTE | 2017-01-03 20:04 | CP.PCM.CON ---
History of Present Illness - History of Present Illness History of Present Illness: Infectious Disease Consultation: January 03, 2017 66 yo female with bilateral lower extremity erythema starting 3 days ago with episodes of chills. The patient has several hospitalizations over the past few years. No other symptoms given. Legs swelling with left worse than right. Erythema of the left worse than the right. Patient has a medical history of COPD, right eye blindness, history of pulmonary embolism, migraine, DVT, and HTN. The patient also mentions a history of excessive head sweating at night for the last few months. PMHx: COPD, right eye blindness, pulmonary embolism history, migraine, DVT, HTN PSHx: Left knee replacement Allergies: Ketorolac Social Hx: Ex-smoker, Denies EtOH or illicit drug use Active Medications Acetaminophen (Tylenol 325mg Tab) 650 mg PO Q4H PRN PRN Reason: Fever >100.4 F Acetaminophen (Tylenol 325mg Tab) 650 mg PO Q4H PRN PRN Reason: Pain, Mild (1-3) Albuterol Sulfate (Albuterol 0.083% Inhal Mile (2.5 Mg/3 Ml) Ud) 2.5 mg IH DAILY [facility] Last Admin: 01/03/17 11:06 Dose: 2.5 mg Alprazolam (Xanax) 0.5 mg PO BID [facility] PRN Reason: Protocol Last Admin: 01/03/17 17:32 Dose: 0.5 mg Amlodipine Besylate (Norvasc) 10 mg PO DAILY [facility] Last Admin: 01/03/17 10:35 Dose: 10 mg Arformoterol Tartrate (Brovana) 15 mcg IH [id number] [facility] Last Admin: 01/03/17 07:37 Dose: 15 mcg Atorvastatin Calcium (Lipitor) 10 mg PO DIN [facility] Last Admin: 01/03/17 17:32 Dose: 10 mg Budesonide (Pulmicort Respules) 0.5 mg IH [id number] [facility] Last Admin: 01/03/17 07:37 Dose: 0.5 mg Docusate Sodium (Colace) 100 mg PO BID [facility] Last Admin: 01/03/17 17:32 Dose: 100 mg Duloxetine HCl (Cymbalta) 90 mg PO DAILY [facility] Last Admin: 01/03/17 10:36 Dose: 90 mg Famotidine (Pepcid) 40 mg PO HS [facility] Last Admin: 01/02/17 22:16 Dose: 40 mg Furosemide (Lasix) 20 mg IVP DAILY [facility] Stop: 01/08/17 10:31 Last Admin: 01/03/17 10:37 Dose: 20 mg Hydromorphone HCl (Dilaudid) 0.5 mg IVP Q4H PRN PRN Reason: Pain, Mild (1-3) Last Admin: 01/03/17 11:50 Dose: 0.5 mg Lisinopril (Zestril) 40 mg PO DAILY [facility] Last Admin: 01/03/17 10:36 Dose: 40 mg (Temazepam [Restoril (] 30 Mg)) 30 mg PO HS [facility] Pantoprazole Sodium (Protonix Ec Tab) 40 mg PO ACB [facility] Last Admin: 01/03/17 07:42 Dose: Not Given Topiramate (Topamax) 100 mg PO BID [facility] PRN Reason: Protocol Last Admin: 01/03/17 17:32 Dose: 100 mg Warfarin Sodium (Coumadin) 4 mg PO 1800 [facility] Last Admin: 01/03/17 17:32 Dose: 4 mg Family Hx: none ROS: Leg weakness and pain. No fevers, chills, nausea, vomiting, diarrhea, headaches , dizziness, chest pain, abdominal pain, melena, hematuria, hematemesis, hematochezia, depression, anxiety. Past Patient History - Infectious Disease Hx of Infectious Diseases: None - Tetanus Immunizations Tetanus Immunization: Unknown - Past Medical History & Family History Past Medical History?: Yes - Past Social History Smoking Status: Former Smoker - CARDIAC Hx Hypertension: Yes - PULMONARY Hx Chronic Obstructive Pulmonary Disease (COPD): Yes - NEUROLOGICAL Hx Neurological Disorder: Yes Hx Migraine: Yes - HEENT Hx HEENT Problems: Yes Hx Blind: Yes (partial vision right eye, 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 wears glasses - RENAL Hx Chronic Kidney Disease: No - ENDOCRINE/METABOLIC Hx Endocrine Disorders: No - HEMATOLOGICAL/ONCOLOGICAL Hx Blood Disorders: No - INTEGUMENTARY Hx Dermatological Problems: No - MUSCULOSKELETAL/RHEUMATOLOGICAL Hx Arthritis: Yes Hx Falls: No - GASTROINTESTINAL Hx Gastrointestinal Disorders: No - GENITOURINARY/GYNECOLOGICAL Hx Genitourinary Disorders: No - PSYCHIATRIC Hx Psychophysiologic Disorder: Yes Hx Anxiety: Yes Hx Emotional Abuse: (pt. stated no) Hx Physical Abuse: (pt stated no) - SURGICAL HISTORY Hx Joint Replacement: Yes (left knee) Other/Comment: colonoscopy S/p LTKR 07/12/2014 - ANESTHESIA Hx Anesthesia: Yes Hx Anesthesia Reactions: Yes (nausea) Hx Malignant Hyperthermia: No Meds Allergies/Adverse Reactions: Allergies Allergy/AdvReac Type Severity Reaction Status Date / Time ketorolac Allergy SHORTNESS Verified 08/18/16 16:41 OF BREATH - Medications Medications: Current Medications Acetaminophen (Tylenol 325mg Tab) 650 mg PO Q4H PRN PRN Reason: Fever >100.4 F Acetaminophen (Tylenol 325mg Tab) 650 mg PO Q4H PRN PRN Reason: Pain, Mild (1-3) Albuterol Sulfate (Albuterol 0.083% Inhal Mile (2.5 Mg/3 Ml) Ud) 2.5 mg IH DAILY [facility] Last Admin: 01/03/17 11:06 Dose: 2.5 mg Alprazolam (Xanax) 0.5 mg PO BID [facility] PRN Reason: Protocol Last Admin: 01/03/17 17:32 Dose: 0.5 mg Amlodipine Besylate (Norvasc) 10 mg PO DAILY [facility] Last Admin: 01/03/17 10:35 Dose: 10 mg Arformoterol Tartrate (Brovana) 15 mcg IH [id number] [facility] Last Admin: 01/03/17 07:37 Dose: 15 mcg Atorvastatin Calcium (Lipitor) 10 mg PO DIN [facility] Last Admin: 01/03/17 17:32 Dose: 10 mg Budesonide (Pulmicort Respules) 0.5 mg IH [id number] [facility] Last Admin: 01/03/17 07:37 Dose: 0.5 mg Docusate Sodium (Colace) 100 mg PO BID [facility] Last Admin: 01/03/17 17:32 Dose: 100 mg Duloxetine HCl (Cymbalta) 90 mg PO DAILY [facility] Last Admin: 01/03/17 10:36 Dose: 90 mg Famotidine (Pepcid) 40 mg PO HS [facility] Last Admin: 01/02/17 22:16 Dose: 40 mg Furosemide (Lasix) 20 mg IVP DAILY [facility] Stop: 01/08/17 10:31 Last Admin: 01/03/17 10:37 Dose: 20 mg Hydromorphone HCl (Dilaudid) 0.5 mg IVP Q4H PRN PRN Reason: Pain, Mild (1-3) Last Admin: 01/03/17 11:50 Dose: 0.5 mg Lisinopril (Zestril) 40 mg PO DAILY [facility] Last Admin: 01/03/17 10:36 Dose: 40 mg (Temazepam [Restoril (] 30 Mg)) 30 mg PO HS [facility] Pantoprazole Sodium (Protonix Ec Tab) 40 mg PO ACB [facility] Last Admin: 01/03/17 07:42 Dose: Not Given Topiramate (Topamax) 100 mg PO BID [facility] PRN Reason: Protocol Last Admin: 01/03/17 17:32 Dose: 100 mg Warfarin Sodium (Coumadin) 4 mg PO 1800 [facility] Last Admin: 01/03/17 17:32 Dose: 4 mg Physical Exam - Constitutional Appears: Non-toxic, No Acute Distress, Chronically Ill - Head Exam Head Exam: ATRAUMATIC, NORMOCEPHALIC - Eye Exam Eye Exam: EOMI, PERRL Pupil Exam: NORMAL ACCOMODATION, PERRL - ENT Exam ENT Exam: Mucous Membranes Moist, Normal External Ear Exam, TM's Normal Bilaterally - Neck Exam Neck exam: Positive for: Full Rom, Normal Inspection - Respiratory Exam Respiratory Exam: Clear to Auscultation Bilateral, NORMAL BREATHING PATTERN. absent: Rales, Rhonchi, Wheezes - Cardiovascular Exam Cardiovascular Exam: REGULAR RHYTHM, RRR, +S1, +S2 - GI/Abdominal Exam GI & Abdominal Exam: Normal Bowel Sounds, Soft. absent: Distended, Tenderness - Extremities Exam Extremities exam: Positive for: joint swelling, pedal edema Additional comments: increased warmth and swelling to the bilateral lower extremities. Left worse than right. +2 edema. - Neurological Exam Neurological exam: Alert, CN II-XII Intact, Oriented x3 - Psychiatric Exam Psychiatric exam: Normal Affect, Normal Mood - Skin Skin Exam: Intact, Normal Color Results - Vital Signs Recent Vital Signs: Last Vital Signs Temp 98.1 F 01/03/17 16:35 Pulse 80 01/03/17 16:35 Resp 20 01/03/17 16:35 BP 134/81 01/03/17 16:35 Pulse Ox 96 01/03/17 16:35 - Labs Result Diagrams: 01/03/17 06:40 01/03/17 06:40 Labs: Laboratory Results - last 24 hr 1001/03/17 01/03/17 20:48 06:40 06:40 WBC RBC Hgb Hct MCV MCH MCHC RDW Plt Count MPV PT INR pO2 82 H VBG pH 7.30 L VBG pCO2 66.0 H* VBG HCO3 32.5 H VBG Total CO2 34.5 H VBG O2 Sat (Calc) 97.9 H VBG Base Excess 4.0 H VBG Potassium 4.0 Sodium 139.0 143 Chloride 105.0 104 Glucose 93 Lactate 0.8 FiO2 21.0 Potassium 3.9 Carbon Dioxide 32 Anion Gap 11 BUN 11 Creatinine 0.6 L Est GFR ( Amer) > 60 Est GFR (Non-Af Amer) > 60 Random Glucose 87 Hemoglobin A1c Calcium 8.5 Iron 82 TIBC 353 % Saturation 23 Triglycerides 75 Cholesterol 144 LDL Cholesterol Direct 69 HDL Cholesterol 61 H Vitamin B12 245 Folate > 20.0 TSH 3rd Generation Venous Blood Potassium 4.0 01/03/17 01/03/17 01/03/17 06:40 06:40 06:40 WBC 5.2 D RBC 4.31 Hgb 12.3 Hct 39.4 MCV 91.4 MCH 28.5 MCHC 31.2 RDW 14.0 Plt Count 180 MPV 10.8 PT 27.1 H INR 2.51 H pO2 VBG pH VBG pCO2 VBG HCO3 VBG Total CO2 VBG O2 Sat (Calc) VBG Base Excess VBG Potassium Sodium Chloride Glucose Lactate FiO2 Potassium Carbon Dioxide Anion Gap BUN Creatinine Est GFR ( Amer) Est GFR (Non-Af Amer) Random Glucose Hemoglobin A1c 6.3 Calcium Iron TIBC % Saturation Triglycerides Cholesterol LDL Cholesterol Direct HDL Cholesterol Vitamin B12 Folate TSH 3rd Generation Venous Blood Potassium 01/03/17 06:40 WBC RBC Hgb Hct MCV MCH MCHC RDW Plt Count MPV PT INR pO2 VBG pH VBG pCO2 VBG HCO3 VBG Total CO2 VBG O2 Sat (Calc) VBG Base Excess VBG Potassium Sodium Chloride Glucose Lactate FiO2 Potassium Carbon Dioxide Anion Gap BUN Creatinine Est GFR ( Amer) Est GFR (Non-Af Amer) Random Glucose Hemoglobin A1c Calcium Iron TIBC % Saturation Triglycerides Cholesterol LDL Cholesterol Direct HDL Cholesterol Vitamin B12 Folate TSH 3rd Generation 0.84 Venous Blood Potassium Assessment & Plan - Assessment and Plan (Free Text) Assessment: 66 yo female with presentation of erythema and swelling of the bilateral lower legs. The patient denies fevers and chills. Currently received IV Vancomycin and Zosyn in the ER. The patient has no allergies to antibiotics. Supportive care. No leukocytosis. Signs of chronic venous stasis especially in the left lower leg. ESR of 20 and C-Reactive protein of 5.22. Cellulitis of the lower legs is mild to moderate with the left being worse than the right lower leg. Continue IV Vancomycin and Zosyn for now. Thank you for allowing me to participate in the care of the patient, we will follow with you.
[2017-01-03] MEDS: Vancomycin 1gm in NS 250ml 1 GM/250 ML BAG IVPB SCH (22:21)
[2017-01-04] MEDS: Piperacillin/Tazobact 3.375 gm 100 ML IVPB SCH ×4 (00:38→18:01)
[2017-01-04] MEDS: HYDROmorphone 0.5 mg/0.5 ml ISec IVP PRN ×3 (00:41→17:58)
[2017-01-04 06:58] LABS: INR 2.05 (0.93-1.08)
[2017-01-04] MEDS: Arformoterol 15 mcg/2 ml Inh Sol IH SCH ×2 (07:08→19:54)
[2017-01-04] MEDS: Albuterol 0.083% Inhal Sol (2.5 mg/3 mL) UD IH SCH (07:08)
[2017-01-04] MEDS: Budesonide 0.5 mg/2 ml Inhal Susp UD IH SCH ×2 (07:08→19:54)
[2017-01-04] MEDS: Pantoprazole 40 mg EC Tab PO SCH (07:23)
--- NOTE | 2017-01-04 08:17 | PN ---
DATE: SUBJECTIVE: The patient is seen and examined on the bedside, looking comfortable, legs have still warm and red, but got little bit better, swelling is little bit better. No nausea, vomiting or diarrhea. No hematuria or hematochezia. No headache or dizziness. No chest pain or palpitation. No fevers. No chills. PHYSICAL EXAMINATION: VITAL SIGNS: Temperature 98.1, pulse 80, blood pressure 134/81 and respiratory rate 20. HEENT: Head is normocephalic and atraumatic. Eyes; PERRLA. Extraocular muscles are intact. Conjunctivae are clear. Nose patent. NECK: Supple. No carotid bruits. No JVD or thyromegaly. CHEST: Bilaterally symmetrical. HEART: S1 and S2 positive. LUNGS: Clear to auscultation. ABDOMEN: Soft. Bowel sounds positive. No organomegaly. EXTREMITIES: No edema. No cyanosis. NEUROLOGICAL: The patient is awake and alert. Moving all four extremities. No focal deficits. MEDICATIONS: Albuterol, Brovana, Colace, Coumadin, Cymbalta, Dilaudid, Lasix, Lipitor, Norvasc, Pepcid, Protonix, Pulmicort, Topamax, Tylenol, vancomycin, Xanax, Zestril and Zosyn. LABORATORY DATA: White blood cell 5.2, hemoglobin 12.3, hematocrit 39.4, and platelets 118. Sodium 143, potassium 3.9, BUN 11, creatinine 0.6. Hemoglobin A1c is 6.3. ASSESSMENT AND PLAN: Ms. Ynes Johns is a 66-year-old female admitted with left lower extremity erythema, erythema on the left is worse than the right, history of chronic obstructive pulmonary disease, right eye blindness, history of pulmonary embolism, getting Coumadin, migraine, deep venous thrombosis, hypertension. According to the patient, the patient has excessive sweating at night from couple of months. SHE IS ALLERGIC WITH MANY MEDICATIONS. Receives vancomycin and Zosyn. No leukocytosis, has signs of chronic venous stasis in the left lower leg. Erythrocyte sedimentation rate 20. C reactive protein is 5.22. We will continue present treatment. Repeat labs. Appreciate Dr. Busch input. We will follow up. Lucy Rajput MD
[2017-01-04] MEDS: Vancomycin 1gm in NS 250ml 1 GM/250 ML BAG IVPB SCH ×2 (09:25→20:23)
[2017-01-04] MEDS: POLYETHYLENE GLYCOL 3350 17 GM/Dose PACKET PO SCH (11:16)
--- NOTE | 2017-01-04 16:13 | CP.PCM.PN ---
Subjective - Date & Time of Evaluation Date of Evaluation: 01/04/17 Time of Evaluation: 15:00 - Subjective Subjective: Infectious Disease Follow Up: January 04, 2017 66 yo female with bilateral lower extremity erythema starting 3 days ago with episodes of chills. The patient has several hospitalizations over the past few years. No other symptoms given. Legs swelling with left worse than right. Erythema of the left worse than the right. Patient has a medical history of COPD, right eye blindness, history of pulmonary embolism, migraine, DVT, and HTN. The patient also mentions a history of excessive head sweating at night for the last few months. Still with erythema of the bilateral lower extremities. Objective - Vital Signs/Intake and Output Vital Signs (last 24 hours): Temp Pulse Resp BP Pulse Ox 97.6 F 63 18 127/63 100 01/04/17 07:43 01/04/17 07:43 01/04/17 07:43 01/04/17 09:25 01/04/17 07:43 Intake and Output: 01/04/17 01/04/17 06:59 18:59 Intake Total 860 320 Balance 860 320 - Medications Medications: Current Medications Acetaminophen (Tylenol 325mg Tab) 650 mg PO Q4H PRN PRN Reason: Fever >100.4 F Acetaminophen (Tylenol 325mg Tab) 650 mg PO Q4H PRN PRN Reason: Pain, Mild (1-3) Albuterol Sulfate (Albuterol 0.083% Inhal Mile (2.5 Mg/3 Ml) Ud) 2.5 mg IH DAILY [facility] Last Admin: 01/04/17 07:08 Dose: 2.5 mg Alprazolam (Xanax) 0.5 mg PO BID [facility] PRN Reason: Protocol Last Admin: 01/03/17 17:32 Dose: 0.5 mg Amlodipine Besylate (Norvasc) 10 mg PO DAILY [facility] Last Admin: 01/04/17 09:24 Dose: 10 mg Arformoterol Tartrate (Brovana) 15 mcg IH [id number] [facility] Last Admin: 01/04/17 07:08 Dose: 15 mcg Atorvastatin Calcium (Lipitor) 10 mg PO DIN [facility] Last Admin: 01/03/17 17:32 Dose: 10 mg Budesonide (Pulmicort Respules) 0.5 mg IH [id number] [facility] Last Admin: 01/04/17 07:08 Dose: 0.5 mg Docusate Sodium (Colace) 100 mg PO BID [facility] Last Admin: 01/04/17 09:23 Dose: 100 mg Duloxetine HCl (Cymbalta) 90 mg PO DAILY [facility] Last Admin: 01/04/17 09:24 Dose: 90 mg Famotidine (Pepcid) 40 mg PO HS [facility] Last Admin: 01/03/17 22:21 Dose: 40 mg Furosemide (Lasix) 20 mg IVP DAILY [facility] Stop: 01/10/17 10:31 Last Admin: 01/04/17 09:25 Dose: 20 mg Hydromorphone HCl (Dilaudid) 0.5 mg IVP Q4H PRN PRN Reason: Pain, Mild (1-3) Last Admin: 01/04/17 11:14 Dose: 0.5 mg Vancomycin HCl (Vancomycin 1gm) 1 gm in 250 mls @ 167 mls/hr IVPB Q12H [facility] PRN Reason: Protocol Last Admin: 01/04/17 09:25 Dose: 167 mls/hr Piperacillin Sod/Tazobactam Sod (Zosyn 3.375 In Ns 100ml) 100 mls @ 200 mls/hr IVPB Q6 [facility] PRN Reason: Protocol Last Admin: 01/04/17 12:44 Dose: 200 mls/hr Lisinopril (Zestril) 40 mg PO DAILY [facility] Last Admin: 01/04/17 09:27 Dose: 40 mg (Temazepam [Restoril (] 30 Mg)) 30 mg PO HS [facility] Last Admin: 01/03/17 22:38 Dose: Not Given Pantoprazole Sodium (Protonix Ec Tab) 40 mg PO ACB [facility] Last Admin: 01/04/17 07:23 Dose: 40 mg Polyethylene Glycol (Miralax) 17 gm PO DAILY [facility] Last Admin: 01/04/17 11:16 Dose: 17 gm Topiramate (Topamax) 100 mg PO BID [facility] PRN Reason: Protocol Last Admin: 01/04/17 09:26 Dose: 100 mg Warfarin Sodium (Coumadin) 4 mg PO 1800 [facility] Last Admin: 01/03/17 17:32 Dose: 4 mg - Labs Labs: 01/03/17 06:40 01/03/17 06:40 PT 22.1 Seconds (9.9-11.8) H 10/13/17 06:42 INR 2.05 (0.93-1.08) H 01/04/17 06:42 APTT 49.3 Seconds (23.7-30.8) H 01/02/17 16:37 - Constitutional Appears: Non-toxic, No Acute Distress, Chronically Ill - Head Exam Head Exam: ATRAUMATIC, NORMOCEPHALIC - Eye Exam Eye Exam: EOMI, PERRL Pupil Exam: NORMAL ACCOMODATION, PERRL - ENT Exam ENT Exam: Mucous Membranes Moist, Normal External Ear Exam, TM's Normal Bilaterally - Neck Exam Neck Exam: Full ROM, Normal Inspection - Respiratory Exam Respiratory Exam: Clear to Ausculation Bilateral, NORMAL BREATHING PATTERN. absent: Rales, Rhonchi, Wheezes - Cardiovascular Exam Cardiovascular Exam: REGULAR RHYTHM, RRR, +S1, +S2 - GI/Abdominal Exam GI & Abdominal Exam: Soft, Normal Bowel Sounds. absent: Distended, Tenderness - Extremities Exam Extremities Exam: Joint Swelling, Pedal Edema Additional comments: increased warmth and swelling to the bilateral lower extremities. Left worse than right. +2 edema. - Neurological Exam Neurological Exam: Alert, Awake, CN II-XII Intact, Oriented x3 - Psychiatric Exam Psychiatric exam: Normal Affect, Normal Mood - Skin Skin Exam: Intact, Normal Color Assessment and Plan - Assessment and Plan (Free Text) Assessment: 66 yo female with presentation of erythema and swelling of the bilateral lower legs. The patient denies fevers and chills. Currently received IV Vancomycin and Zosyn in the ER. The patient has no allergies to antibiotics. Supportive care. No leukocytosis. Signs of chronic venous stasis especially in the left lower leg. ESR of 20 and C-Reactive protein of 5.22. Cellulitis of the lower legs is mild to moderate with the left being worse than the right lower leg. No significant improvement today. Continue IV Vancomycin and Zosyn for now. Thank you for allowing me to participate in the care of the patient, we will follow with you.
[2017-01-04] MEDS ORDERED: Albuterol 0.083% Inhal Sol (2.5 mg/3 mL) UD IH PRN (18:41)
--- NOTE | 2017-01-04 20:51 | CON ---
PULMONARY CONSULTATION DATE: 01/04/2017 REFERRING PHYSICIAN: Dr. Rajput. REASON FOR CONSULT: Chronic obstructive lung disease, may have sleep apnea syndrome and lower extremity cellulitis. HISTORY OF PRESENT ILLNESS: This is a 66-year-old female with past medical history significant for chronic obstructive lung disease, history of pulmonary embolism, migraine headache, anxiety disorder, degenerative joint disease and history of DVT, brought into emergency room with diffuse erythema, swelling and tenderness of lower extremity, found to have cellulitis and is admitted for further workup. Presently sitting side of the bed. Has mild cough, not much sputum production. No nausea, vomiting or diarrhea. night snore, daytime sleepy and tired. PAST MEDICAL HISTORY: As per history of present illness. ALLERGIES: ALLERGIC TO KETOROLAC. SOCIAL HISTORY: Stopped smoking many years ago. Denies any alcohol use. FAMILY HISTORY: No significant cardiopulmonary disease reported. MEDICATIONS: She is on Restoril 30 mg at bedtime p.r.n., albuterol/Atrovent nebulizer inhaled was given, also Brovana 15 mcg inhaled twice a day, Colace 100 mg twice a day, Coumadin 4 mg will be given tonight, Cymbalta 90 mg daily, Dilaudid 2.5 mg q. 4 hours p.r.n., Lasix 20 mg daily, Lipitor 10 mg daily, MiraLax 17 g p.o. daily, Norvasc 10 mg daily, Pepcid 40 mg at bedtime, Protonix 40 mg a.c., Pulmicort inhaled twice a day, Topamax 100 mg twice a day, Tylenol p.r.n. basis, Xanax 0.5 mg twice a day, Zestril 40 mg daily and Zosyn 3.375 g IV q. 6 hours. REVIEW OF SYSTEMS: No headache. No rhinitis. night snore, daytime sleepy and tired, short of breath with exertion. No chest pain. No nausea. No vomiting. No diarrhea. Has leg swelling and erythema on both lower extremities. PHYSICAL EXAMINATION: GENERAL: In no acute distress. VITAL SIGNS: Temperature is 98, heart rate 72, respiratory rate is 18, blood pressure 112/72 and pulse rate 96% on room air. HEENT: Moist mucous membranes. Small oral cavity. Crowded airway. NECK: Supple. No JVD. LUNGS: Fair airflow with few rhonchi. HEART: S1 and S2. ABDOMEN: Soft, nontender and nondistended. EXTREMITIES: Edema of the lower extremity with erythema and warm to touch.. NEUROLOGIC: Awake and alert. Follows simple commands. LABORATORY DATA: Shows blood cultures have been negative. Urine culture; there is no growth. Ultrasound of the lower extremity done which shows no sonographic evidence of DVT. Chest x-ray shows there is no infiltrate or effusion. IMPRESSION AND PLAN: Cellulitis of lower extremity, history of pulmonary embolism, deep venous thrombosis, may have a sleep apnea syndrome, hypertension and migraine headache. We will continue inhaled bronchodilator, continue antibiotics. We will review old records for echocardiogram is available. If not, we will do echocardiogram. Will need PFT and attentive sleep study upon discharge as an outpatient. Thank you and we will follow with you. Roman Hahn MD
[2017-01-05] MEDS: Piperacillin/Tazobact 3.375 gm 100 ML IVPB SCH ×3 (00:54→12:50)
--- NOTE | 2017-01-05 03:25 | PN ---
DATE: SUBJECTIVE: Ms. Ynes Johns is a 66-year-old female. The patient was seen and examined on the bedside, feeling a little better, having little bit cough and shortness of breath; otherwise, legs are getting better. Redness is better. Swelling is better. No nausea, vomiting, diarrhea. No hematuria or hematochezia. No headache. No dizziness. No chest pain. No palpitation. No headache. No rhinitis. PHYSICAL EXAMINATION: VITAL SIGNS: Temperature 98.6, heart rate 72, respiratory rate 18, blood pressure 112/72, pulse oximetry 96% on room air. HEENT: Head is normocephalic and atraumatic. Eyes; PERRLA. Extraocular muscles are intact. Conjunctivae are clear. Nose is patent. Mucous membrane moist. NECK: Supple. No carotid bruits. No JVD or thyromegaly. CHEST: Bilaterally symmetrical. HEART: S1 and S2 positive. LUNGS: Fair airflow with few rhonchi. ABDOMEN: Soft, nontender. No organomegaly. EXTREMITIES: Positive edema with erythema and warm to touch and tender. NEUROLOGICAL: The patient is awake and alert. Follows simple command. Cranial nerves II through XII are grossly intact. LABORATORY DATA: White blood cells 5.3, hemoglobin 12.3, hematocrit 39.4, platelets 180. Sodium 143, potassium 3.9, BUN 11, creatinine 0.6, glucose 86. Hemoglobin A1c 6.3. C-reactive protein is 522. MEDICATIONS: Temazepam, albuterol, Brovana, Colace, Coumadin, Cymbalta, Dilaudid, Lasix, Lipitor, Norvasc, Pepcid, Protonix, Pulmicort, Topamax, Tylenol, vancomycin, Xanax, Zestril, Zosyn. ASSESSMENT AND PLAN: Ms. 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 We will continue inhaled bronchodilators. Insomnia, cellulitis of the leg. Continue antibiotics as per Infectious Disease. Gastrointestinal and deep venous thrombosis prophylaxis. Repeat labs. We will follow up. Lucy Rajput MD [facility] # [id number]
[2017-01-05 06:22] VITALS: RESP 20
[2017-01-05] MEDS: Arformoterol 15 mcg/2 ml Inh Sol IH SCH (07:24)
[2017-01-05] MEDS: Budesonide 0.5 mg/2 ml Inhal Susp UD IH SCH (07:24)
[2017-01-05 07:49] VITALS: BP 109/64; PULSE 80; TEMP 98; O2SAT 98
[2017-01-05 07:53] LABS: INR 2.08 (0.93-1.08)
[2017-01-05 08:07] LABS: BLOOD UREA NITROGEN 14 mg/dL (7-21); CALCIUM 8.8 mg/dL (8.4-10.5); CARBON DIOXIDE 25 mmol/L (21-33); CHLORIDE 105 mmol/L (98-107); GFR AFRICAN-AMERICAN > 60; GLUCOSE,RANDOM 111 mg/dL (70-110); POTASSIUM 3.8 mmol/L (3.6-5.0); SODIUM 142 mmol/L (132-148)
[2017-01-05 08:13] LABS: HEMATOCRIT 40.9 % (36.0-48.0); MEAN CELL VOLUME 91.9 fl (80.0-105.0); MEAN CORPUSCULAR HGB CONC 31.5 g/dl (31.0-37.0); MEAN PLATELET VOLUME 11.7 fl (7.0-11.0); RED CELL DISTRIBUTION WIDTH 14.1 % (11.5-14.5); WHITE BLOOD COUNT 5.1 10^3/ul (4.5-11.0)
[2017-01-05] MEDS: POLYETHYLENE GLYCOL 3350 17 GM/Dose PACKET PO SCH (09:36)
[2017-01-05] MEDS: Vancomycin 1gm in NS 250ml 1 GM/250 ML BAG IVPB SCH (09:41)
[2017-01-05] MEDS: Pantoprazole 40 mg EC Tab PO SCH (09:45)
[2017-01-05] MEDS: HYDROmorphone 0.5 mg/0.5 ml ISec IVP PRN (11:00)
--- NOTE | 2017-01-05 21:01 | PN ---
DATE: 01/05/2017 PULMONARY PROGRESS NOTE REFERRING PHYSICIAN: Dr. Rajput. SUBJECTIVE: Subjectively, she is sitting on side of the bed. Night was unremarkable. Feels okay. Short of breath with exertion. No nausea, no vomiting, no diarrhea. Still has leg swelling and erythema. OBJECTIVE: GENERAL: No acute distress. VITAL SIGNS: Temperature is 98, heart rate is 79, respiratory rate is 20, blood pressure is 109/64 and pulse ox 98% on room air. HEENT: Moist mucous membranes. Crowded airway. Mallampati score is IV. NECK: Supple. No JVD. LUNGS: Has a fair airflow with few rhonchi. HEART: S1 and S2. ABDOMEN: Soft and nontender. No organomegaly. EXTREMITIES: Does have edema, both lower extremities with diffuse erythema. NEUROLOGICAL: Awake and alert. Follows simple commands. MEDICATIONS: Reviewed, noted no new change in medications reported since yesterday. LABORATORY DATA: Reviewed, shows hemoglobin 12.9, hematocrit 40.9, WBC 5.1, platelet is 210. INR 2.08. Sodium 142, potassium 3.8, chloride 105. bicarbonate 25, BUN 14, creatinine 0.8, glucose is 111, calcium is 8.8. Microbiology, blood culture and urine culture, there is no growth. IMPRESSION AND PLAN: Cellulitis of both lower extremities, history of pulmonary embolism, deep venous thrombosis, may have sleep apnea syndrome, hypertension, migraine headaches. Pulmonary point of view, doing okay. Continue bronchodilator. Keep head at 45 degrees. Sleep apnea precautions, avoid sedation, antibiotics, elevate lower extremities. Thank you and we will follow with you. Roman Hahn MD
--- NOTE | 2017-01-06 20:31 | DS ---
CHIEF COMPLAINT: Lower extremity redness, warm and tender. HISTORY OF PRESENT ILLNESS: Ms. Ynes Johns is a 66-year-old female with past medical history of COPD, hypertension, migraine, PE, DVT, asthma, came to [facility] Emergency Room with complaining about bilateral lower extremity pressure, pain, warmth. We admitted the patient. Did extremity ultrasound, negative for further DVT. ID consult called with Dr. Rodriguez, gave antibiotic, got better, not getting 100%, but improving, shortness and cough is getting better. Transferred the patient to TCU for further IV antibiotics, for continuity of care, and physical therapy. PAST MEDICAL HISTORY: As above. COPD, pulmonary embolism, migraine, right eye blindness, anxiety, and left knee replacement. FAMILY HISTORY: Father and mother noncontributory. SOCIAL HISTORY: Former smoker, now no more smoking. No drug. No ethanol. ALLERGIES: THE PATIENT IS ALLERGIC WITH KETOROLAC. REVIEW OF SYSTEMS: The patient is seen and examined on the bedside. Looking comfortable. No nausea, vomiting or diarrhea. No hematuria or hematochezia. No swelling of the legs. No chest pain. No palpitation. No headache. No dizziness. PHYSICAL EXAMINATION: VITAL SIGNS: Temperature 98, pulse 80, blood pressure 109/64, and respiratory rate 20. HEENT: Head is normocephalic and atraumatic. Eyes; PERRLA. Extraocular muscles are intact. Conjunctivae are clear. Nose is patent. Mucous membrane moist. NECK: Supple. No carotid bruits. No JVD or thyromegaly. CHEST: Bilaterally symmetrical. HEART: S1 and S2 positive. LUNGS: Clear to auscultation. ABDOMEN: Soft. Bowel sounds positive. No organomegaly. EXTREMITIES: Still edema, redness and warm and tender. NEUROLOGIC: The patient is awake and alert. Moving all 4 extremities. No focal deficits. MEDICATIONS: Restoril, albuterol, Brovana, Colace, Coumadin, Cymbalta, getting hydromorphone for pain, Lasix, Lipitor, MiraLax, Norvasc, Pepcid, Protonix, Pulmicort, Topamax, Tylenol, vancomycin, Zestril, and Zosyn. LABORATORY DATA: White blood cells 5.1, hemoglobin 12.9, hematocrit 40.9, and platelets 210. INR is 2.08, PT 22.5. Sodium 142, potassium 3.8, BUN 14, creatinine 0.8, and glucose 111. ASSESSMENT AND PLAN: Ms. Ynes Johns is a 66-year-old lady, has history of pulmonary embolism on Coumadin. INR is therapeutic, we will continue the same Coumadin, urinary tract infection, cellulitis of the leg, getting antibiotics, chronic obstructive lung disease, migraine, anxiety, degenerative joint disease, came with cellulitis of the leg, sleep apnea syndrome. We will continue inhale bronchodilators, antibiotics. GI and DVT prophylaxis. Repeat labs. We are transferring the patient to TCU for continuity of care, to give physical therapy, give IV antibiotics and maintaining INR. Lucy Rajput MD MTDD
== END 2017-01-05 13:00 | DRG 603 ==
LOC: ED 14:42 → ERH 18:49 → 5RNO 20:52
PROVIDERS: ADMIT Internal Medicine; ATTEND Internal Medicine
DX: L03.115 Cellulitis of right lower limb (principal); I10 Essential (primary) hypertension; N39.0 Urinary tract infection, site not specified; J44.9 Chronic obstructive pulmonary disease, unspecified; L03.116 Cellulitis of left lower limb; J45.909 Unspecified asthma, uncomplicated; E66.9 Obesity, unspecified; F41.9 Anxiety disorder, unspecified; G43.909 Migraine, unspecified, not intractable, without status migrainosus; G47.00 Insomnia, unspecified; G47.30 Sleep apnea, unspecified; H54.61 Unqualified visual loss, right eye, normal vision left eye; M19.90 Unspecified osteoarthritis, unspecified site; Z79.01 Long term (current) use of anticoagulants; Z79.899 Other long term (current) drug therapy; Z86.711 Personal history of pulmonary embolism; Z87.891 Personal history of nicotine dependence; Z96.652 Presence of left artificial knee joint; Z88.8 Allergy status to other drugs, medicaments and biological substances; Z86.718 Personal history of other venous thrombosis and embolism; F32.89 Other specified depressive episodes; R40.2412 Glasgow coma scale score 13-15, at arrival to emergency department

== ENCOUNTER 2017-01-05 13:48 | Inpatient (IN) | payer OTHER ==
[2017-01-05] MEDS ORDERED: Influenza Vaccine 60 mcg/0.5 mL SYR (4YR UP) IM ONE (15:17)
[2017-01-05] MEDS ORDERED: Pneumococcal 23-Valent Vaccine IM ONE (15:17)
[2017-01-05 16:26] VITALS: BMI 40.2
[2017-01-05] MEDS: HYDROmorphone 0.5 mg/0.5 ml ISec IVP PRN (17:20)
[2017-01-05] MEDS: Vancomycin 1gm in NS 250ml 1 GM/250 ML BAG IVPB SCH (17:25)
[2017-01-05] MEDS: Piperacillin/Tazobact 3.375 gm 100 ML IVPB SCH ×2 (17:26→22:30)
[2017-01-05] MEDS ORDERED: Piperacillin/Tazobact 3.375 gm 100 ML IVPB SCH (18:00)
--- NOTE | 2017-01-05 18:04 | CP.PCM.CON ---
History of Present Illness - History of Present Illness History of Present Illness: Infectious Disease Consultation/Follow Up: January 05, 2017 66 yo female with bilateral lower extremity erythema starting 3 days ago with episodes of chills. The patient has several hospitalizations over the past few years. No other symptoms given. Legs swelling with left worse than right. Erythema of the left worse than the right. Patient has a medical history of COPD, right eye blindness, history of pulmonary embolism, migraine, DVT, and HTN. The patient also mentions a history of excessive head sweating at night for the last few months. Still with erythema of the bilateral lower extremities. PMHx: COPD, right eye blindness, pulmonary embolism history, migraine, DVT, HTN PSHx: Left knee replacement Allergies: Ketorolac Social Hx: Ex-smoker, Denies EtOH or illicit drug use Active Medications Acetaminophen (Tylenol 325mg Tab) 650 mg PO Q4H PRN; Protocol PRN Reason: Pain, Mild (1-3) Albuterol Sulfate (Albuterol 0.083% Inhal Mile (2.5 Mg/3 Ml) Ud) 2.5 mg INH [id number] KRISTYN PRN Reason: Protocol Alprazolam (Xanax) 0.5 mg PO BID KRISTYN PRN Reason: Protocol Last Admin: 01/05/17 17:28 Dose: 0.5 mg Amlodipine Besylate (Norvasc) 10 mg PO DAILY KRISTYN PRN Reason: Protocol Arformoterol Tartrate (Brovana) 15 mcg IH [id number] KRISTYN PRN Reason: Protocol Atorvastatin Calcium (Lipitor) 10 mg PO DIN KRISTYN PRN Reason: Protocol Last Admin: 01/05/17 17:23 Dose: 10 mg Budesonide (Pulmicort Respules) 0.5 mg IH [id number] KRISTYN PRN Reason: Protocol Docusate Sodium (Colace) 100 mg PO BID KRISTYN PRN Reason: Protocol Last Admin: 01/05/17 17:23 Dose: 100 mg Duloxetine HCl (Cymbalta) 90 mg PO DAILY KRISTYN PRN Reason: Protocol Famotidine (Pepcid) 40 mg PO HS KRISTYN PRN Reason: Protocol Furosemide (Lasix) 20 mg IVP DAILY KRISTYN PRN Reason: Protocol Home Med (Home Med) 1 unit PO HS KRISTYN PRN Reason: Protocol Hydromorphone HCl (Dilaudid) 0.5 mg IVP Q4H PRN; Protocol PRN Reason: Pain, moderate (4-7) Last Admin: 01/05/17 17:20 Dose: 0.5 mg Vancomycin HCl (Vancomycin 1gm) 1 gm in 250 mls @ 167 mls/hr IVPB 0600,1800 KRISTYN PRN Reason: Protocol Last Admin: 01/05/17 17:25 Dose: 167 mls/hr Piperacillin Sod/Tazobactam Sod (Zosyn 3.375 In Ns 100ml) 100 mls @ 200 mls/hr IVPB 1000,1400,1800,2200 KRISTYN PRN Reason: Protocol Last Admin: 01/05/17 17:26 Dose: 200 mls/hr Lisinopril (Zestril) 40 mg PO DAILY KRISTYN PRN Reason: Protocol Pantoprazole Sodium (Protonix Ec Tab) 40 mg PO 0600 KRISTYN PRN Reason: Protocol Polyethylene Glycol (Miralax) 17 gm PO DAILY KRISTYN PRN Reason: Protocol Topiramate (Topamax) 100 mg PO BID KRISTYN PRN Reason: Protocol Last Admin: 01/05/17 17:25 Dose: 100 mg Warfarin Sodium (Coumadin) 4 mg PO 1800 KRISTYN PRN Reason: Protocol Last Admin: 01/05/17 17:24 Dose: 4 mg Family Hx: none ROS: Leg weakness and pain. No fevers, chills, nausea, vomiting, diarrhea, headaches , dizziness, chest pain, abdominal pain, melena, hematuria, hematemesis, hematochezia, depression, anxiety. Past Patient History - Infectious Disease Hx of Infectious Diseases: None - Tetanus Immunizations Tetanus Immunization: Unknown - Past Medical History & Family History Past Medical History?: Yes - Past Social History Smoking Status: Former Smoker - CARDIAC Hx Hypertension: Yes - PULMONARY Hx Chronic Obstructive Pulmonary Disease (COPD): Yes - NEUROLOGICAL Hx Neurological Disorder: Yes Hx Migraine: Yes - HEENT Hx HEENT Problems: Yes Hx Blind: Yes (partial vision right eye, 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 wears glasses - RENAL Hx Chronic Kidney Disease: No - ENDOCRINE/METABOLIC Hx Endocrine Disorders: No - HEMATOLOGICAL/ONCOLOGICAL Hx Blood Disorders: No - INTEGUMENTARY Hx Dermatological Problems: No - MUSCULOSKELETAL/RHEUMATOLOGICAL Hx Falls: Yes - GASTROINTESTINAL Hx Gastrointestinal Disorders: Yes (CONSTIPATION,GASTRITIS) - GENITOURINARY/GYNECOLOGICAL Hx Genitourinary Disorders: No Hx Reproductive Disorders: No - PSYCHIATRIC Hx Psychophysiologic Disorder: Yes Hx Anxiety: Yes Hx Emotional Abuse: (pt. stated no) Hx Physical Abuse: (pt stated no) - SURGICAL HISTORY Hx Joint Replacement: Yes (left knee) Other/Comment: colonoscopy S/p LTKR 07/12/2014 - ANESTHESIA Hx Anesthesia: Yes Hx Anesthesia Reactions: Yes (nausea) Hx Malignant Hyperthermia: No Meds Allergies/Adverse Reactions: Allergies Allergy/AdvReac Type Severity Reaction Status Date / Time ketorolac Allergy SHORTNESS Verified 01/05/17 14:51 OF BREATH - Medications Medications: Current Medications Acetaminophen (Tylenol 325mg Tab) 650 mg PO Q4H PRN; Protocol PRN Reason: Pain, Mild (1-3) Albuterol Sulfate (Albuterol 0.083% Inhal Mile (2.5 Mg/3 Ml) Ud) 2.5 mg INH [id number] KRISTYN PRN Reason: Protocol Alprazolam (Xanax) 0.5 mg PO BID KRISTYN PRN Reason: Protocol Last Admin: 01/05/17 17:28 Dose: 0.5 mg Amlodipine Besylate (Norvasc) 10 mg PO DAILY KRISTYN PRN Reason: Protocol Arformoterol Tartrate (Brovana) 15 mcg IH [id number] KRISTYN PRN Reason: Protocol Atorvastatin Calcium (Lipitor) 10 mg PO DIN KRISTYN PRN Reason: Protocol Last Admin: 01/05/17 17:23 Dose: 10 mg Budesonide (Pulmicort Respules) 0.5 mg IH [id number] KRISTYN PRN Reason: Protocol Docusate Sodium (Colace) 100 mg PO BID KRISTYN PRN Reason: Protocol Last Admin: 01/05/17 17:23 Dose: 100 mg Duloxetine HCl (Cymbalta) 90 mg PO DAILY KRISTYN PRN Reason: Protocol Famotidine (Pepcid) 40 mg PO HS KRISTYN PRN Reason: Protocol Furosemide (Lasix) 20 mg IVP DAILY KRISTYN PRN Reason: Protocol Home Med (Home Med) 1 unit PO HS KRISTYN PRN Reason: Protocol Hydromorphone HCl (Dilaudid) 0.5 mg IVP Q4H PRN; Protocol PRN Reason: Pain, moderate (4-7) Last Admin: 01/05/17 17:20 Dose: 0.5 mg Vancomycin HCl (Vancomycin 1gm) 1 gm in 250 mls @ 167 mls/hr IVPB 0600,1800 KRISTYN PRN Reason: Protocol Last Admin: 01/05/17 17:25 Dose: 167 mls/hr Piperacillin Sod/Tazobactam Sod (Zosyn 3.375 In Ns 100ml) 100 mls @ 200 mls/hr IVPB 1000,1400,1800,2200 KRISTYN PRN Reason: Protocol Last Admin: 01/05/17 17:26 Dose: 200 mls/hr Lisinopril (Zestril) 40 mg PO DAILY KRISTYN PRN Reason: Protocol Pantoprazole Sodium (Protonix Ec Tab) 40 mg PO 0600 KRISTYN PRN Reason: Protocol Polyethylene Glycol (Miralax) 17 gm PO DAILY KRISTYN PRN Reason: Protocol Topiramate (Topamax) 100 mg PO BID KRISTYN PRN Reason: Protocol Last Admin: 01/05/17 17:25 Dose: 100 mg Warfarin Sodium (Coumadin) 4 mg PO 1800 KRISTYN PRN Reason: Protocol Last Admin: 01/05/17 17:24 Dose: 4 mg Physical Exam - Constitutional Appears: Non-toxic, No Acute Distress, Chronically Ill - Head Exam Head Exam: ATRAUMATIC, NORMOCEPHALIC - Eye Exam Eye Exam: EOMI, PERRL Pupil Exam: NORMAL ACCOMODATION, PERRL - ENT Exam ENT Exam: Mucous Membranes Moist, Normal External Ear Exam, TM's Normal Bilaterally - Neck Exam Neck exam: Positive for: Full Rom, Normal Inspection - Respiratory Exam Respiratory Exam: Clear to Auscultation Bilateral, NORMAL BREATHING PATTERN. absent: Rales, Rhonchi, Wheezes - Cardiovascular Exam Cardiovascular Exam: REGULAR RHYTHM, RRR, +S1, +S2 - GI/Abdominal Exam GI & Abdominal Exam: Normal Bowel Sounds, Soft. absent: Distended, Tenderness - Extremities Exam Extremities exam: Positive for: joint swelling, pedal edema Additional comments: increased warmth and swelling to the bilateral lower extremities. Left worse than right. +2 edema. - Neurological Exam Neurological exam: Alert, CN II-XII Intact, Oriented x3 - Psychiatric Exam Psychiatric exam: Normal Affect, Normal Mood - Skin Skin Exam: Intact, Normal Color Results - Vital Signs Recent Vital Signs: Last Vital Signs Temp 98.3 F 01/05/17 16:49 Pulse 836 H 01/05/17 16:49 Resp 18 01/05/17 16:49 BP 129/79 01/05/17 16:49 Pulse Ox 96 01/05/17 16:49 Assessment & Plan - Assessment and Plan (Free Text) Assessment: 66 yo female with presentation of erythema and swelling of the bilateral lower legs. The patient denies fevers and chills. Currently received IV Vancomycin and Zosyn in the ER. The patient has no allergies to antibiotics. Supportive care. No leukocytosis. Signs of chronic venous stasis especially in the left lower leg. ESR of 20 and C-Reactive protein of 5.22. Cellulitis of the lower legs is mild to moderate with the left being worse than the right lower leg. Continue IV Vancomycin and Zosyn for now. Thank you for allowing me to participate in the care of the patient, we will follow with you.
[2017-01-05] MEDS: Albuterol 0.083% Inhal Sol (2.5 mg/3 mL) UD INH SCH (21:15)
[2017-01-05] MEDS: Arformoterol 15 mcg/2 ml Inh Sol IH SCH (21:15)
[2017-01-05] MEDS: [UNRECOGNIZED DRUG - OTHER] PO SCH (22:30)
[2017-01-06] MEDS: Albuterol 0.083% Inhal Sol (2.5 mg/3 mL) UD INH SCH ×4 (02:50→20:32)
[2017-01-06] MEDS: Vancomycin 1gm in NS 250ml 1 GM/250 ML BAG IVPB SCH ×2 (05:32→18:00)
[2017-01-06] MEDS: Pantoprazole 40 mg EC Tab PO SCH (05:33)
[2017-01-06 06:10] LABS: BASO # 0.02 K/mm3 (0.0-2.0); BASO % 0.4 % (0.0-3.0); EOS # 0.5 (0.0-0.7); EOS % 10.6 % (1.5-5.0); GRAN # 2.07 (1.4-6.5); HEMATOCRIT 35.8 % (36.0-48.0); LYMPH # 1.5 (1.2-3.4); LYMPH % 32.3 % (22.0-35.0); MEAN CELL VOLUME 91.6 fl (80.0-105.0); MEAN CORPUSCULAR HEMOGLOBIN 28.6 pg (25.0-35.0); MEAN CORPUSCULAR HGB CONC 31.3 g/dl (31.0-37.0); MONO # 0.5 (0.1-0.6); MONO % 11.7 % (1.0-6.0); RED CELL DISTRIBUTION WIDTH 14.4 % (11.5-14.5); WHITE BLOOD COUNT 4.6 10^3/ul (4.5-11.0)
[2017-01-06] MEDS: Arformoterol 15 mcg/2 ml Inh Sol IH SCH ×2 (07:31→20:32)
[2017-01-06] MEDS: Budesonide 0.5 mg/2 ml Inhal Susp UD IH SCH ×2 (07:31→20:32)
[2017-01-06 07:52] LABS: INR 2.3 (0.93-1.08)
[2017-01-06] MEDS: HYDROmorphone 0.5 mg/0.5 ml ISec IVP PRN (10:24)
[2017-01-06] MEDS: POLYETHYLENE GLYCOL 3350 17 GM/Dose PACKET PO SCH (10:26)
[2017-01-06] MEDS: Piperacillin/Tazobact 3.375 gm 100 ML IVPB SCH ×4 (10:27→22:27)
--- NOTE | 2017-01-06 17:44 | CP.PCM.PN ---
Subjective - Date & Time of Evaluation Date of Evaluation: 01/06/17 Time of Evaluation: 15:30 - Subjective Subjective: Infectious Disease Follow Up: January 06, 2017 66 yo female with bilateral lower extremity erythema starting 3 days ago with episodes of chills. The patient has several hospitalizations over the past few years. No other symptoms given. Legs swelling with left worse than right. Erythema of the left worse than the right. Patient has a medical history of COPD, right eye blindness, history of pulmonary embolism, migraine, DVT, and HTN. The patient also mentions a history of excessive head sweating at night for the last few months. Still with erythema of the bilateral lower extremities. Very slowly improving. Objective - Vital Signs/Intake and Output Vital Signs (last 24 hours): Temp Pulse Resp BP Pulse Ox 98.1 F 76 18 111/76 96 01/06/17 16:23 01/06/17 16:23 01/06/17 16:23 01/06/17 16:23 01/06/17 16:23 - Medications Medications: Current Medications Acetaminophen (Tylenol 325mg Tab) 650 mg PO Q4H PRN; Protocol PRN Reason: Pain, Mild (1-3) Albuterol Sulfate (Albuterol 0.083% Inhal Mile (2.5 Mg/3 Ml) Ud) 2.5 mg INH [id number] KRISTYN PRN Reason: Protocol Last Admin: 01/06/17 13:38 Dose: Not Given Alprazolam (Xanax) 0.5 mg PO BID KRISTYN PRN Reason: Protocol Last Admin: 01/06/17 10:26 Dose: 0.5 mg Amlodipine Besylate (Norvasc) 10 mg PO DAILY KRISTYN PRN Reason: Protocol Last Admin: 01/06/17 10:29 Dose: 10 mg Arformoterol Tartrate (Brovana) 15 mcg IH [id number] KRISTYN PRN Reason: Protocol Last Admin: 01/06/17 07:31 Dose: 15 mcg Atorvastatin Calcium (Lipitor) 10 mg PO DIN KRISTYN PRN Reason: Protocol Last Admin: 01/05/17 17:23 Dose: 10 mg Budesonide (Pulmicort Respules) 0.5 mg IH [id number] KRISTYN PRN Reason: Protocol Last Admin: 01/06/17 07:31 Dose: 0.5 mg Docusate Sodium (Colace) 100 mg PO BID KRISTYN PRN Reason: Protocol Last Admin: 01/06/17 10:25 Dose: 100 mg Duloxetine HCl (Cymbalta) 90 mg PO DAILY KRISTYN PRN Reason: Protocol Last Admin: 01/06/17 10:26 Dose: 90 mg Famotidine (Pepcid) 40 mg PO HS KRISTYN PRN Reason: Protocol Last Admin: 01/05/17 22:30 Dose: 40 mg Furosemide (Lasix) 20 mg IVP DAILY KRISTYN PRN Reason: Protocol Last Admin: 01/06/17 10:29 Dose: 20 mg Home Med (Home Med) 1 unit PO HS KRISTYN PRN Reason: Protocol Last Admin: 01/05/17 22:30 Dose: 1 unit Hydromorphone HCl (Dilaudid) 0.5 mg IVP Q4H PRN; Protocol PRN Reason: Pain, moderate (4-7) Last Admin: 01/06/17 10:24 Dose: 0.5 mg Vancomycin HCl (Vancomycin 1gm) 1 gm in 250 mls @ 167 mls/hr IVPB 0600,1800 KRISTYN PRN Reason: Protocol Last Admin: 01/06/17 05:32 Dose: 167 mls/hr Piperacillin Sod/Tazobactam Sod (Zosyn 3.375 In Ns 100ml) 100 mls @ 200 mls/hr IVPB 1000,1400,1800,2200 KRISTYN PRN Reason: Protocol Last Admin: 01/06/17 14:43 Dose: 200 mls/hr Lisinopril (Zestril) 40 mg PO DAILY KRISTYN PRN Reason: Protocol Last Admin: 01/06/17 10:29 Dose: 40 mg Pantoprazole Sodium (Protonix Ec Tab) 40 mg PO 0600 KRISTYN PRN Reason: Protocol Last Admin: 01/06/17 05:33 Dose: 40 mg Polyethylene Glycol (Miralax) 17 gm PO DAILY KRISTYN PRN Reason: Protocol Last Admin: 01/06/17 10:26 Dose: 17 gm Topiramate (Topamax) 100 mg PO BID KRISTYN PRN Reason: Protocol Last Admin: 01/06/17 10:26 Dose: 100 mg Warfarin Sodium (Coumadin) 4 mg PO 1800 KRISTYN PRN Reason: Protocol Last Admin: 01/05/17 17:24 Dose: 4 mg - Labs Labs: 01/06/17 05:45 PT 24.8 Seconds (9.9-11.8) H 01/06/17 07:30 INR 2.30 (0.93-1.08) H 01/06/17 07:30 - Constitutional Appears: Non-toxic, No Acute Distress, Chronically Ill - Head Exam Head Exam: ATRAUMATIC, NORMOCEPHALIC - Eye Exam Eye Exam: EOMI, PERRL Pupil Exam: NORMAL ACCOMODATION, PERRL - ENT Exam ENT Exam: Mucous Membranes Moist, Normal External Ear Exam, TM's Normal Bilaterally - Neck Exam Neck Exam: Full ROM, Normal Inspection - Respiratory Exam Respiratory Exam: Clear to Ausculation Bilateral, NORMAL BREATHING PATTERN. absent: Rales, Rhonchi, Wheezes - Cardiovascular Exam Cardiovascular Exam: REGULAR RHYTHM, RRR, +S1, +S2 - GI/Abdominal Exam GI & Abdominal Exam: Soft, Normal Bowel Sounds. absent: Distended, Tenderness - Extremities Exam Extremities Exam: Joint Swelling, Pedal Edema Additional comments: increased warmth and swelling to the bilateral lower extremities. Left worse than right. +2 edema. - Neurological Exam Neurological Exam: Alert, CN II-XII Intact, Oriented x3 - Psychiatric Exam Psychiatric exam: Normal Affect, Normal Mood - Skin Skin Exam: Intact, Normal Color Assessment and Plan - Assessment and Plan (Free Text) Assessment: 66 yo female with presentation of erythema and swelling of the bilateral lower legs. The patient denies fevers and chills. Currently received IV Vancomycin and Zosyn in the ER. The patient has no allergies to antibiotics. Supportive care. No leukocytosis. Signs of chronic venous stasis especially in the left lower leg. ESR of 20 and C-Reactive protein of 5.22. Cellulitis of the lower legs is mild to moderate with the left being worse than the right lower leg. Continue IV Vancomycin and Zosyn for now. Looking to complete 10-14 day course. Thank you for allowing me to participate in the care of the patient, we will follow with you.
--- NOTE | 2017-01-06 21:44 | CP.PCM.HP ---
History of Present Illness - History of Present Illness History of Present Illness: 66 yo female with bilateral lower extremity erythema starting 3 days ago with episodes of chills. The patient has several hospitalizations over the past few years. No other symptoms given. Legs swelling with left worse than right. Erythema of the left worse than the right. Patient has a medical history of COPD, right eye blindness, history of pulmonary embolism, migraine, DVT, and HTN. The patient also mentions a history of excessive head sweating at night for the last few months. Still with erythema of the bilateral lower extremities, but improving a lot .pain is getting better , transfered to [facility] for con. of care and pt Present on Admission - Present on Admission Any Indicators Present on Admission: Yes Review of Systems - Constitutional Constitutional: Daytime Sleepiness, Excessive Sweating, Fatigue - EENT Eyes: As Per HPI Ears: As Per HPI Nose/Mouth/Throat: As Per HPI - Breasts Breasts: Change in Shape - Cardiovascular Cardiovascular: Leg Edema, Pedal Edema - Respiratory Respiratory: Dyspnea, Wheezing - Gastrointestinal Gastrointestinal: Bloating - Genitourinary Genitourinary: As Per HPI - Neurological Neurological: Headaches, Loss of Vision Additional comments: loss of vision in one eye - Psychiatric Psychiatric: As Per HPI - Endocrine Endocrine: As Per HPI - Hematologic/Lymphatic Hematologic: As Per HPI Past Patient History - Infectious Disease Hx of Infectious Diseases: None - Tetanus Immunizations Tetanus Immunization: Unknown - Past Medical History & Family History Past Medical History?: Yes - Past Social History Smoking Status: Former Smoker - CARDIAC Hx Hypertension: Yes - PULMONARY Hx Chronic Obstructive Pulmonary Disease (COPD): Yes - NEUROLOGICAL Hx Neurological Disorder: Yes Hx Migraine: Yes - HEENT Hx HEENT Problems: Yes Hx Blind: Yes (partial vision right eye, 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 wears glasses - RENAL Hx Chronic Kidney Disease: No - ENDOCRINE/METABOLIC Hx Endocrine Disorders: No - HEMATOLOGICAL/ONCOLOGICAL Hx Blood Disorders: No - INTEGUMENTARY Hx Dermatological Problems: No - MUSCULOSKELETAL/RHEUMATOLOGICAL Hx Falls: Yes - GASTROINTESTINAL Hx Gastrointestinal Disorders: Yes (CONSTIPATION,GASTRITIS) - GENITOURINARY/GYNECOLOGICAL Hx Genitourinary Disorders: No Hx Reproductive Disorders: No - PSYCHIATRIC Hx Psychophysiologic Disorder: Yes Hx Anxiety: Yes Hx Emotional Abuse: (pt. stated no) Hx Physical Abuse: (pt stated no) - SURGICAL HISTORY Hx Joint Replacement: Yes (left knee) Other/Comment: colonoscopy S/p LTKR 07/12/2014 - ANESTHESIA Hx Anesthesia: Yes Hx Anesthesia Reactions: Yes (nausea) Hx Malignant Hyperthermia: No Meds Allergies/Adverse Reactions: Allergies Allergy/AdvReac Type Severity Reaction Status Date / Time ketorolac Allergy SHORTNESS Verified 01/05/17 14:51 OF BREATH Physical Exam - Constitutional Appears: Well - Head Exam Head Exam: ATRAUMATIC, NORMAL INSPECTION, NORMOCEPHALIC - Eye Exam Eye Exam: EOMI, Normal appearance, PERRL Pupil Exam: NORMAL ACCOMODATION, PERRL Additional comments: blind in one eye - ENT Exam ENT Exam: Mucous Membranes Moist, Normal Exam - Neck Exam Neck exam: Positive for: Normal Inspection - Respiratory Exam Respiratory Exam: Decreased Breath Sounds, Wheezes, NORMAL BREATHING PATTERN - Cardiovascular Exam Cardiovascular Exam: REGULAR RHYTHM - GI/Abdominal Exam GI & Abdominal Exam: Normal Bowel Sounds, Soft. absent: Tenderness - Rectal Exam Rectal Exam: NORMAL INSPECTION - Exam Exam: Circumcision, NORMAL INSPECTION External exam: NORMAL EXTERNAL EXAM Speculum exam: NORMAL SPECULUM EXAM Bimanual exam: NORMAL BIMANUAL EXAM - Extremities Exam Extremities exam: Positive for: pedal edema, tenderness Additional comments: red and warm - Back Exam Back exam: NORMAL INSPECTION - Neurological Exam Neurological exam: Alert, CN II-XII Intact, Normal Gait, Oriented x3, Reflexes Normal - Psychiatric Exam Psychiatric exam: Normal Affect, Normal Mood - Skin Skin Exam: Dry, Intact, Normal Color, Warm Results - Vital Signs Recent Vital Signs: Last Vital Signs Temp 98.1 F 01/06/17 16:23 Pulse 76 01/06/17 16:23 Resp 18 01/06/17 16:23 BP 111/76 01/06/17 16:23 Pulse Ox 96 01/06/17 16:23 - Labs Result Diagrams: 01/06/17 05:45 Labs: Laboratory Results - last 24 hr 01/06/17 01/06/17 05:45 07:30 WBC 4.6 RBC 3.91 Hgb 11.2 L Hct 35.8 L MCV 91.6 MCH 28.6 MCHC 31.3 RDW 14.4 Plt Count 196 MPV 11.0 Gran % 45.0 L Lymph % (Auto) 32.3 [place] % (Auto) 11.7 H Eos % (Auto) 10.6 H Baso % (Auto) 0.4 Gran # 2.07 Lymph # 1.5 [place] # 0.5 Eos # 0.5 Baso # 0.02 PT 24.8 H INR 2.30 H Assessment & Plan (1) Cellulitis Status: Acute (2) Cellulitis of leg without foot, left Status: Acute (3) DVT prophylaxis Status: Acute (4) History of pulmonary embolism Status: Acute (5) PUD (peptic ulcer disease) Status: Acute (6) Prophylactic measure Status: Acute (7) Ptosis Status: Acute (8) Rash and nonspecific skin eruption Status: Acute (9) S/P total knee replacement Status: Acute (10) Anxiety Status: Chronic (11) COPD (chronic obstructive pulmonary disease) Status: Chronic (12) Chronic bronchitis Status: Chronic (13) Hyperlipidemia Status: Chronic (14) Hypertension Status: Chronic (15) Left knee DJD Status: Chronic
[2017-01-06] MEDS: [UNRECOGNIZED DRUG - OTHER] PO SCH (22:27)
[2017-01-07] MEDS: Albuterol 0.083% Inhal Sol (2.5 mg/3 mL) UD INH SCH ×4 (02:40→19:31)
[2017-01-07] MEDS: Vancomycin 1gm in NS 250ml 1 GM/250 ML BAG IVPB SCH ×2 (05:42→17:57)
[2017-01-07] MEDS: Pantoprazole 40 mg EC Tab PO SCH (05:42)
--- NOTE | 2017-01-07 05:53 | CON ---
PULMONARY CONSULTATION REFERRING PHYSICIAN: Dr. Rajput. REASON FOR CONSULT: Chronic lung disease, may have a sleep apnea syndrome, and lower extremity cellulitis. HISTORY OF PRESENT ILLNESS: This is a 66-year-old female known to me from acute side of the hospital, has a known history of chronic obstructive lung disease, history of pulmonary embolism in the remote past, migraine headache, anxiety disorder, and degenerative joint disease, admitted with bilateral lower extremity diffuse cellulitis, started on antibiotics, presently admitted to [facility] to continued care. She is able to ambulate, painful lower extremity with diffuse erythema and swelling. No hemoptysis or hematemesis. No hematuria. No diarrhea reported. PAST MEDICAL HISTORY: As per history of present illness. ALLERGIES: KETOROLAC. SOCIAL HISTORY: Stopped smoking many years ago. Denies any alcohol use. FAMILY HISTORY: No significant cardiopulmonary disease reported. MEDICATIONS: She is on albuterol/Atrovent nebulizer q.6 hours, Brovana inhaled twice a day, Colace 100 mg twice a day, Coumadin 4 mg will be given tonight, Cymbalta 90 mg daily, Dilaudid 0.5 mg q.4 hours p.r.n., Lipitor 10 mg daily, MiraLax 17 g daily, Norvasc 10 mg daily, Pepcid 40 mg at bedtime, Protonix 40 mg daily, Pulmicort inhaled twice a day, Topamax 100 mg twice a day, Tylenol p.r.n. basis, vancomycin 1 g IV q.12 hours, Xanax 0.5 mg twice a day, Zestril 40 mg daily and Zosyn 3.375 g IV q.6 hours. REVIEW OF SYSTEMS: No headache, no rhinitis. Not much cough. No shortness of breath. No chest pain. No nausea. No vomiting. Has leg swelling and diffuse erythema. PHYSICAL EXAMINATION: GENERAL: Sitting up in a chair, in no acute distress. VITAL SIGNS: Temperature is 98, heart rate is 76, respiratory rate is 18, blood pressure is 111/76, and pulse ox 96% on room air. HEENT: Moist mucous membranes. Crowded airway. Mallampati score is IV. NECK: Supple. No JVD. LUNGS: Fair airflow with rhonchi. HEART: S1 and S2. ABDOMEN: Soft and nontender. No organomegaly. EXTREMITIES: Diffuse erythema of the lower extremities. NEUROLOGIC: Awake and alert. Follows simple commands. LABORATORY DATA: Shows hemoglobin 11.2, hematocrit 35.8, WBC 4.6, platelet count is 196. INR 2.30. Microbiology, blood culture and urine culture, there is no growth. IMPRESSION AND PLAN: Cellulitis of both lower extremities, history of pulmonary embolism, deep venous thrombosis, may have sleep apnea syndrome, hypertension, migraine headaches. Pulmonary point of view, she is doing okay. Continue bronchodilator. Keep head at 45 degrees. Sleep apnea precautions, antibiotics, elevate lower extremities. Thank you and we will follow with you. Roman Hahn MD
[2017-01-07] MEDS: Budesonide 0.5 mg/2 ml Inhal Susp UD IH SCH ×3 (07:22→19:32)
[2017-01-07] MEDS: Arformoterol 15 mcg/2 ml Inh Sol IH SCH ×2 (07:22→19:31)
[2017-01-07 07:59] LABS: INR 2.42 (0.93-1.08)
[2017-01-07] MEDS: POLYETHYLENE GLYCOL 3350 17 GM/Dose PACKET PO SCH (10:06)
[2017-01-07] MEDS: Piperacillin/Tazobact 3.375 gm 100 ML IVPB SCH ×4 (10:07→21:41)
[2017-01-07] MEDS: HYDROmorphone 0.5 mg/0.5 ml ISec IVP PRN ×2 (11:04→20:28)
--- NOTE | 2017-01-07 18:20 | CP.PCM.PN ---
Subjective - Date & Time of Evaluation Date of Evaluation: 01/07/17 Time of Evaluation: 17:30 - Subjective Subjective: Infectious Disease Follow Up: January 07, 2017 66 yo female with bilateral lower extremity erythema starting 3 days ago with episodes of chills. The patient has several hospitalizations over the past few years. No other symptoms given. Legs swelling with left worse than right. Erythema of the left worse than the right. Patient has a medical history of COPD, right eye blindness, history of pulmonary embolism, migraine, DVT, and HTN. The patient also mentions a history of excessive head sweating at night for the last few months. Still with erythema of the bilateral lower extremities. Improvement of the cellulitis on the left lower leg has been slow. Sign of chronic venous stasis on the left lower leg. Objective - Vital Signs/Intake and Output Vital Signs (last 24 hours): Temp Pulse Resp BP Pulse Ox 98.6 F 81 18 102/63 90 L 01/07/17 16:00 01/07/17 16:00 01/07/17 16:00 01/07/17 16:00 01/07/17 16:00 - Medications Medications: Current Medications Acetaminophen (Tylenol 325mg Tab) 650 mg PO Q4H PRN; Protocol PRN Reason: Pain, Mild (1-3) Albuterol Sulfate (Albuterol 0.083% Inhal Mile (2.5 Mg/3 Ml) Ud) 2.5 mg INH [id number] KRISTYN PRN Reason: Protocol Last Admin: 01/07/17 14:09 Dose: Not Given Alprazolam (Xanax) 0.5 mg PO BID KRISTYN PRN Reason: Protocol Last Admin: 01/07/17 17:56 Dose: 0.5 mg Amlodipine Besylate (Norvasc) 10 mg PO DAILY KRISTYN PRN Reason: Protocol Last Admin: 01/07/17 10:12 Dose: 10 mg Arformoterol Tartrate (Brovana) 15 mcg IH [id number] KRISTYN PRN Reason: Protocol Last Admin: 01/07/17 07:22 Dose: 15 mcg Atorvastatin Calcium (Lipitor) 10 mg PO DIN KRISTYN PRN Reason: Protocol Last Admin: 01/07/17 17:56 Dose: 10 mg Budesonide (Pulmicort Respules) 0.5 mg IH [id number] KRISTYN PRN Reason: Protocol Last Admin: 01/07/17 07:43 Dose: 0.5 mg Docusate Sodium (Colace) 100 mg PO BID KRISTYN PRN Reason: Protocol Last Admin: 01/07/17 17:57 Dose: 100 mg Duloxetine HCl (Cymbalta) 90 mg PO DAILY KRISTYN PRN Reason: Protocol Last Admin: 01/07/17 10:06 Dose: 90 mg Famotidine (Pepcid) 40 mg PO HS KRISTYN PRN Reason: Protocol Last Admin: 01/06/17 22:23 Dose: 40 mg Furosemide (Lasix) 20 mg IVP DAILY KRISTYN PRN Reason: Protocol Last Admin: 01/07/17 10:12 Dose: 20 mg Home Med (Home Med) 1 unit PO HS KRISTYN PRN Reason: Protocol Last Admin: 01/06/17 22:27 Dose: 1 unit Hydromorphone HCl (Dilaudid) 0.5 mg IVP Q4H PRN; Protocol PRN Reason: Pain, moderate (4-7) Last Admin: 01/07/17 11:04 Dose: 0.5 mg Vancomycin HCl (Vancomycin 1gm) 1 gm in 250 mls @ 167 mls/hr IVPB 0600,1800 KRISTYN PRN Reason: Protocol Last Admin: 01/07/17 17:57 Dose: 167 mls/hr Piperacillin Sod/Tazobactam Sod (Zosyn 3.375 In Ns 100ml) 100 mls @ 200 mls/hr IVPB 1000,1400,1800,2200 KRISTYN PRN Reason: Protocol Last Admin: 01/07/17 17:58 Dose: 200 mls/hr Lisinopril (Zestril) 40 mg PO DAILY KRISTYN PRN Reason: Protocol Last Admin: 01/07/17 10:12 Dose: 40 mg Pantoprazole Sodium (Protonix Ec Tab) 40 mg PO 0600 KRISTYN PRN Reason: Protocol Last Admin: 01/07/17 05:42 Dose: 40 mg Polyethylene Glycol (Miralax) 17 gm PO DAILY KRISTYN PRN Reason: Protocol Last Admin: 01/07/17 10:06 Dose: 17 gm Topiramate (Topamax) 100 mg PO BID KRISTYN PRN Reason: Protocol Last Admin: 01/07/17 17:56 Dose: 100 mg Warfarin Sodium (Coumadin) 4 mg PO 1800 KRISTYN PRN Reason: Protocol Last Admin: 01/07/17 17:57 Dose: 4 mg - Labs Labs: 01/06/17 05:45 PT 26.1 Seconds (9.9-11.8) H 01/07/17 07:30 INR 2.42 (0.93-1.08) H 01/07/17 07:30 - Constitutional Appears: Non-toxic, No Acute Distress, Chronically Ill - Head Exam Head Exam: ATRAUMATIC, NORMOCEPHALIC - Eye Exam Eye Exam: EOMI, PERRL Pupil Exam: NORMAL ACCOMODATION, PERRL - ENT Exam ENT Exam: Mucous Membranes Moist, Normal External Ear Exam, TM's Normal Bilaterally - Neck Exam Neck Exam: Full ROM, Normal Inspection - Respiratory Exam Respiratory Exam: Clear to Ausculation Bilateral, NORMAL BREATHING PATTERN. absent: Rales, Rhonchi, Wheezes - Cardiovascular Exam Cardiovascular Exam: REGULAR RHYTHM, RRR, +S1, +S2 - GI/Abdominal Exam GI & Abdominal Exam: Soft, Normal Bowel Sounds. absent: Distended, Tenderness - Extremities Exam Extremities Exam: Joint Swelling, Pedal Edema Additional comments: increased warmth and swelling to the bilateral lower extremities. Left worse than right. +2 edema. - Neurological Exam Neurological Exam: Alert, Awake, CN II-XII Intact, Oriented x3 - Psychiatric Exam Psychiatric exam: Normal Affect, Normal Mood - Skin Skin Exam: Intact, Normal Color Assessment and Plan - Assessment and Plan (Free Text) Assessment: 66 yo female with presentation of erythema and swelling of the bilateral lower legs. The patient denies fevers and chills. Currently received IV Vancomycin and Zosyn in the ER. The patient has no allergies to antibiotics. Supportive care. No leukocytosis. Signs of chronic venous stasis especially in the left lower leg. ESR of 20 and C-Reactive protein of 5.22. Cellulitis of the lower legs is mild to moderate with the left being worse than the right lower leg. Continue IV Vancomycin and Zosyn for now. Looking to complete 10-14 day course. Improvement to left lower leg has been slow. Thank you for allowing me to participate in the care of the patient, we will follow with you.
[2017-01-07] MEDS: [UNRECOGNIZED DRUG - OTHER] PO SCH (21:40)
--- NOTE | 2017-01-08 00:22 | PN ---
SUBJECTIVE: The patient is a 66-year-old female. The patient is seen and examined on the bedside, looking comfortable. No nausea, vomiting or diarrhea, still having swelling of the leg and redness. No hematuria or hematochezia. No headache. No dizziness. PHYSICAL EXAMINATION: VITAL SIGNS: Temperature 98.6, pulse 81, blood pressure 102/63 and respiratory rate 18. HEENT: Head: Normocephalic and atraumatic. Eyes: PERRLA. Extraocular muscles are intact. Conjunctivae are clear. Nose is patent. Mucous membranes are moist. NECK: Supple. No carotid bruits. No JVD or thyromegaly. CHEST: Bilaterally symmetrical. HEART: S1 and S2 positive. LUNGS: Clear to auscultation. ABDOMEN: Soft. Bowel sounds are positive. No organomegaly. EXTREMITIES: No edema. No cyanosis. NEUROLOGIC: The patient is awake and alert. Moving all 4 extremities. No focal deficits. MEDICATIONS: Albuterol, Brovana, Colace, Coumadin, Cymbalta, Dilaudid, Lasix, Lipitor, MiraLax, Norvasc, Pepcid, Protonix, Pulmicort, Topamax, vancomycin, Xanax, Zestril and Zosyn. LABORATORY DATA: White blood cells 5.6, hemoglobin 11.2, hematocrit 35.8 and platelets 196. INR 2.42, PT 26.1. ASSESSMENT AND PLAN: Ms. Ynes Johns is a 66-year-old lady, came with cellulitis of the leg, history of pulmonary hypertension, pulmonary embolism, deep vein thrombosis, sleep apnea syndrome, obesity, migraine headache, blind from one eye. Getting IV antibiotics, continue bronchodilators, keep bed elevated at 45, sleep apnea precautions. Antibiotics as per infectious disease, Dr. Rodriguez. Gastrointestinal and deep venous thrombosis prophylaxis. We will follow. Lucy Rajput MD
--- NOTE | 2017-01-08 00:45 | PN ---
PULMONARY PROGRESS NOTE REFERRING PHYSICIAN: Lucy Rajput MD SUBJECTIVE: The patient is lying in the bed with lower extremity elevated over the pillow. Denies any headache, no rhinitis, no cough, no sputum production, no nausea, no vomiting, no diarrhea. Decreased swelling of the lower extremity, still has diffuse erythema. OBJECTIVE: GENERAL: No acute distress. VITAL SIGNS: Temperature is 98, heart rate is 81, respiratory rate is 20, blood pressure is 102/63 and pulse ox 98% on room air. HEENT: Moist mucous membranes. Crowded airway. NECK: Supple. No JVD. LUNGS: Has a fair airflow with few rhonchi. HEART: S1 and S2. ABDOMEN: Soft and nontender. No organomegaly. EXTREMITIES: Has diffuse erythema in lower extremity with edema. NEUROLOGICAL: Awake and alert. Follows simple commands. MEDICATIONS: She is on albuterol/Atrovent nebulizer q. 6 hour, Brovana inhaled twice a day, Colace 100 mg twice a day, Coumadin 4 mg will be given tonight, Cymbalta 90 mg daily, Dilaudid 2.5 mg q. 4 hours p.r.n., Lasix 20 mg IV daily, Lipitor 10 mg daily, MiraLax 17 g daily, Norvasc 10 mg daily, Pepcid 40 mg at bedtime, Protonix 40 mg daily, Pulmicort inhaled twice a day, Topamax 100 mg twice a day, Tylenol p.r.n. basis, vancomycin 1 g IV q. 12 hour, Xanax 0.5 mg twice a day, Zestril 40 mg daily and Zosyn 3.375 g IV q. 6 hour. LABORATORY DATA: Shows INR 2.42. IMPRESSION AND PLAN: Cellulitis of both lower extremities, pulmonary embolism, deep venous thrombosis, may have sleep apnea syndrome, hypertension, migraine headaches. Pulmonary point of view, she is doing okay. Continue bronchodilator. Keep head at 45 degrees. Sleep apnea precautions, elevate lower extremities. Antibiotic as per infectious disease. Thank you and we will follow with you. Roman Hahn MD
[2017-01-08] MEDS: Albuterol 0.083% Inhal Sol (2.5 mg/3 mL) UD INH SCH ×4 (01:42→20:28)
[2017-01-08] MEDS: Pantoprazole 40 mg EC Tab PO SCH (06:03)
[2017-01-08] MEDS: Vancomycin 1gm in NS 250ml 1 GM/250 ML BAG IVPB SCH ×2 (06:03→18:10)
[2017-01-08 08:18] LABS: INR 2.44 (0.93-1.08)
[2017-01-08] MEDS: Budesonide 0.5 mg/2 ml Inhal Susp UD IH SCH ×2 (08:33→20:29)
[2017-01-08] MEDS: Arformoterol 15 mcg/2 ml Inh Sol IH SCH ×2 (08:33→20:29)
[2017-01-08] MEDS: POLYETHYLENE GLYCOL 3350 17 GM/Dose PACKET PO SCH (08:59)
[2017-01-08] MEDS: Piperacillin/Tazobact 3.375 gm 100 ML IVPB SCH ×3 (11:02→17:37)
[2017-01-08] MEDS: HYDROmorphone 0.5 mg/0.5 ml ISec IVP PRN (11:10)
--- NOTE | 2017-01-08 15:49 | CP.PCM.PN ---
Subjective - Date & Time of Evaluation Date of Evaluation: 01/08/17 Time of Evaluation: 14:40 - Subjective Subjective: Infectious Disease Follow Up: January 08, 2017 66 yo female with bilateral lower extremity erythema starting 3 days ago with episodes of chills. The patient has several hospitalizations over the past few years. No other symptoms given. Legs swelling with left worse than right. Erythema of the left worse than the right. Patient has a medical history of COPD, right eye blindness, history of pulmonary embolism, migraine, DVT, and HTN. The patient also mentions a history of excessive head sweating at night for the last few months. Still with erythema of the bilateral lower extremities. Improvement of the cellulitis on the left lower leg has been very slow. Sign of chronic venous stasis on the left lower leg. Objective - Vital Signs/Intake and Output Vital Signs (last 24 hours): Temp Pulse Resp BP Pulse Ox 98.6 F 81 18 161/98 H 90 L 01/07/17 16:00 01/07/17 16:00 01/07/17 16:00 01/08/17 12:32 01/07/17 16:00 - Medications Medications: Current Medications Acetaminophen (Tylenol 325mg Tab) 650 mg PO Q4H PRN; Protocol PRN Reason: Pain, Mild (1-3) Albuterol Sulfate (Albuterol 0.083% Inhal Mile (2.5 Mg/3 Ml) Ud) 2.5 mg INH [id number] KRISTYN PRN Reason: Protocol Last Admin: 01/08/17 13:41 Dose: 2.5 mg Alprazolam (Xanax) 0.5 mg PO BID KRISTYN PRN Reason: Protocol Last Admin: 01/08/17 11:13 Dose: 0.5 mg Amlodipine Besylate (Norvasc) 10 mg PO DAILY KRISTYN PRN Reason: Protocol Last Admin: 01/08/17 09:00 Dose: 10 mg Arformoterol Tartrate (Brovana) 15 mcg IH [id number] KRISTYN PRN Reason: Protocol Last Admin: 01/08/17 08:33 Dose: 15 mcg Atorvastatin Calcium (Lipitor) 10 mg PO DIN KRISTYN PRN Reason: Protocol Last Admin: 01/07/17 17:56 Dose: 10 mg Budesonide (Pulmicort Respules) 0.5 mg IH [id number] KRISTYN PRN Reason: Protocol Last Admin: 01/08/17 08:33 Dose: 0.5 mg Docusate Sodium (Colace) 100 mg PO BID KRISTYN PRN Reason: Protocol Last Admin: 01/08/17 09:01 Dose: 100 mg Duloxetine HCl (Cymbalta) 90 mg PO DAILY KRISTYN PRN Reason: Protocol Last Admin: 01/08/17 08:59 Dose: 90 mg Famotidine (Pepcid) 40 mg PO HS KRISTYN PRN Reason: Protocol Last Admin: 01/07/17 21:39 Dose: 40 mg Furosemide (Lasix) 20 mg IVP DAILY KRISTYN PRN Reason: Protocol Last Admin: 01/08/17 12:32 Dose: 20 mg Home Med (Home Med) 1 unit PO HS KRISTYN PRN Reason: Protocol Last Admin: 01/07/17 21:40 Dose: 1 unit Hydromorphone HCl (Dilaudid) 0.5 mg IVP Q4H PRN; Protocol PRN Reason: Pain, moderate (4-7) Last Admin: 01/08/17 11:10 Dose: 0.5 mg Vancomycin HCl (Vancomycin 1gm) 1 gm in 250 mls @ 167 mls/hr IVPB 0600,1800 KRISTYN PRN Reason: Protocol Last Admin: 01/08/17 06:03 Dose: 167 mls/hr Piperacillin Sod/Tazobactam Sod (Zosyn 3.375 In Ns 100ml) 100 mls @ 200 mls/hr IVPB 1000,1400,1800,2200 KRISTYN PRN Reason: Protocol Last Admin: 01/08/17 11:02 Dose: 200 mls/hr Lisinopril (Zestril) 40 mg PO DAILY KRISTYN PRN Reason: Protocol Last Admin: 01/08/17 09:00 Dose: 40 mg Pantoprazole Sodium (Protonix Ec Tab) 40 mg PO 0600 KRISTYN PRN Reason: Protocol Last Admin: 01/08/17 06:03 Dose: 40 mg Polyethylene Glycol (Miralax) 17 gm PO DAILY KRISTYN PRN Reason: Protocol Last Admin: 01/08/17 08:59 Dose: 17 gm Topiramate (Topamax) 100 mg PO BID KRISTYN PRN Reason: Protocol Last Admin: 01/08/17 09:00 Dose: 100 mg Warfarin Sodium (Coumadin) 4 mg PO 1800 KRISTYN PRN Reason: Protocol Last Admin: 01/07/17 17:57 Dose: 4 mg - Labs Labs: 01/06/17 05:45 PT 26.4 Seconds (9.9-11.8) H 01/08/17 07:57 INR 2.44 (0.93-1.08) H 01/08/17 07:57 - Constitutional Appears: Non-toxic, No Acute Distress, Chronically Ill - Head Exam Head Exam: ATRAUMATIC, NORMOCEPHALIC - Eye Exam Eye Exam: EOMI, PERRL Pupil Exam: NORMAL ACCOMODATION, PERRL - ENT Exam ENT Exam: Mucous Membranes Moist, Normal External Ear Exam, TM's Normal Bilaterally - Neck Exam Neck Exam: Full ROM, Normal Inspection - Respiratory Exam Respiratory Exam: Clear to Ausculation Bilateral, NORMAL BREATHING PATTERN. absent: Rales, Rhonchi, Wheezes - Cardiovascular Exam Cardiovascular Exam: REGULAR RHYTHM, RRR, +S1, +S2 - GI/Abdominal Exam GI & Abdominal Exam: Soft, Normal Bowel Sounds. absent: Distended, Tenderness - Extremities Exam Extremities Exam: Joint Swelling, Pedal Edema Additional comments: increased warmth and swelling to the bilateral lower extremities. Left worse than right. +2 edema. slight improvement in left lower leg from the past 2 days. - Neurological Exam Neurological Exam: Alert, Awake, CN II-XII Intact, Oriented x3 - Psychiatric Exam Psychiatric exam: Normal Affect, Normal Mood - Skin Skin Exam: Intact Additional comments: As above. Assessment and Plan - Assessment and Plan (Free Text) Assessment: 66 yo female with presentation of erythema and swelling of the bilateral lower legs. The patient denies fevers and chills. Currently received IV Vancomycin and Zosyn in the ER. The patient has no allergies to antibiotics. Supportive care. No leukocytosis. Signs of chronic venous stasis especially in the left lower leg. ESR of 20 and C-Reactive protein of 5.22. Cellulitis of the lower legs is mild to moderate with the left being worse than the right lower leg. Continue IV Vancomycin and Zosyn for now. Looking to complete 10-14 day course. Improvement to left lower leg has been very slow. Thank you for allowing me to participate in the care of the patient, we will follow with you.
[2017-01-08] MEDS: [UNRECOGNIZED DRUG - OTHER] PO SCH (21:55)
[2017-01-09] MEDS: Albuterol 0.083% Inhal Sol (2.5 mg/3 mL) UD INH SCH ×4 (01:56→19:19)
--- NOTE | 2017-01-09 03:30 | PN ---
DATE: SUBJECTIVE: The patient is a 66-year-old female. The patient is seen and examined on the bedside, sitting on the recliner with hanging legs. Legs are better, still warm, red, tender, but is better. Getting Physical Therapy. Both son and sister is on the bedside. No fever. No chills. No cough. No headache. No dizziness. PHYSICAL EXAMINATION: VITAL SIGNS: Temperature 98.7, pulse 76; blood pressure 108/72, repeat was 160/98; respiratory rate 15. HEENT: Head is normocephalic and atraumatic. Eyes, PERRLA. Extraocular muscles are intact. Conjunctivae clear. Nose is patent. NECK: Supple. No carotid bruits. No JVD or thyromegaly. CHEST: Bilaterally symmetrical. HEART: S1 and S2 positive. LUNGS: Clear to auscultation. ABDOMEN: Soft. Bowel sounds positive. No organomegaly. EXTREMITIES: No edema. No cyanosis. Extremities are red, warm, and tender. NEUROLOGIC: The patient is awake and alert. Moving all 4 extremities. No focal deficits. MEDICATIONS: Albuterol, Brovana, Colace, Coumadin, Cymbalta, Dilaudid, furosemide, Lipitor, MiraLax, Lasix, Norvasc, Pepcid, Protonix, Pulmicort, Tylenol, vancomycin, Xanax, Zestril, and Zosyn. LABORATORY DATA: We do not have recent labs today, but I reviewed old labs. INR is 2.44. ASSESSMENT AND PLAN: Ms. Andreas Quick is a 66-year-old female with multiple medical problems, came with erythema, swelling, warm and red bilaterally of the legs. The patient is getting vancomycin and Zosyn in the ER. No leukocytosis, no fever. She has signs of chronic venous stasis,especially in the left lower extremity. ESR about 20, C-reactive protein is 5.22. We will continue vancomycin and Zosyn. Looking to complete in 10 to 14 days. Improvement in left lower leg has been very slow. History of chronic obstructive pulmonary disease, asthma, obesity, pulmonary embolism, and deep vein thrombosis, getting Coumadin, INR within therapeutic range, migraine. Continue bronchodilators, sleep apnea precautions, elevate lower extremities. Getting Physical Therapy. We will follow up. Lucy Rajput MD
[2017-01-09] MEDS: Pantoprazole 40 mg EC Tab PO SCH (05:12)
[2017-01-09] MEDS: Piperacillin/Tazobact 3.375 gm 100 ML IVPB SCH ×3 (05:12→18:06)
[2017-01-09] MEDS: Vancomycin 1gm in NS 250ml 1 GM/250 ML BAG IVPB SCH ×2 (05:13→18:06)
--- NOTE | 2017-01-09 05:50 | PN ---
PULMONARY PROGRESS NOTE DATE: 01/08/2017 REFERRING PHYSICIAN: Dr. Rajput. SUBJECTIVE: The patient is sitting up in a chair, having dinner. Night was unremarkable. Feels a little better, still has erythema of the lower extremities. Swelling is a little better. No nausea, no vomiting, no diarrhea. Does have leg pain, no leg swelling. OBJECTIVE: GENERAL: In no acute distress. VITAL SIGNS: Temperature is 98, heart rate 76, respiratory rate is 16, blood pressure 108/72, and pulse ox 90% on nasal cannula. HEENT: Moist mucous membranes. Crowded airway. Mallampati score is IV. NECK: Supple. No JVD. LUNGS: Have a few scattered rhonchi. HEART: S1 and S2. ABDOMEN: Soft, nontender. No organomegaly. EXTREMITIES: Does have edema and erythema. NEUROLOGIC: Awake, alert, follows simple commands. MEDICATIONS: She is on albuterol-Atrovent nebulizer q. 6 hours, Brovana inhaled twice a day, Colace 100 mg twice a day, Coumadin 4 mg will be given tonight, Cymbalta 90 mg daily, Dilaudid 0.5 mg q. 4 hours p.r.n., Lasix 20 mg IV daily, Lipitor 10 mg daily, MiraLax 17 g daily, Norvasc 10 mg daily, Pepcid 40 mg daily, Protonix 40 mg daily, Pulmicort inhaled twice a day, Topamax 100 mg twice a day, Tylenol p.r.n., vancomycin 1 g IV twice a day, Xanax 0.5 mg twice a day, Zestril 40 mg daily and Zosyn 3.375 g q. 8 hours. LABORATORY DATA: Reviewed, shows INR today 2.44. IMPRESSION AND PLAN: Cellulitis of both lower extremities, history of pulmonary embolism, history of deep venous thrombosis, may have sleep apnea syndrome, hypertension, and migraine headaches. Pulmonary point of view, she is doing okay. Keep head elevated at 45 degrees while sleeping and also elevate lower extremity while sleeping. Antibiotics. gastric prophylaxis, schedule for echocardiogram. So if this leg swelling is secondary to heart failure or chronic deep vein thrombosis in the past? If left ventricle and right ventricle function is normal, may need to look into decreasing Norvasc or may need to repeat venous Doppler to assure there is no venous thrombosis. Thank you and we will follow with you. Roman Hahn MD
[2017-01-09 06:10] LABS: INR 2.45 (0.93-1.08)
[2017-01-09] MEDS: Budesonide 0.5 mg/2 ml Inhal Susp UD IH SCH ×2 (07:20→19:20)
[2017-01-09] MEDS: Arformoterol 15 mcg/2 ml Inh Sol IH SCH ×2 (07:20→19:19)
[2017-01-09] MEDS: POLYETHYLENE GLYCOL 3350 17 GM/Dose PACKET PO SCH (11:04)
[2017-01-09] MEDS: HYDROmorphone 0.5 mg/0.5 ml ISec IVP PRN ×2 (12:10→20:31)
--- NOTE | 2017-01-09 19:57 | PN ---
DATE: 01/09/2017 REFERRING PHYSICIAN: Dr. Rajput. SUBJECTIVE: She is participating in therapy, night was unremarkable. No headache, no rhinitis, no nausea, no vomiting or diarrhea. Decreased erythema and swelling on the lower extremities. OBJECTIVE: GENERAL: No acute distress. VITAL SIGNS: Temperature is 98, heart rate is 77, respiratory rate is 18, blood pressure is 122/75 and pulse ox 92% on room air. HEENT: Moist mucous membranes. Crowded airway. NECK: Supple. No JVD. LUNGS: Has a fair airflow with few rhonchi. HEART: S1 and S2. ABDOMEN: Soft, nontender and nondistended. EXTREMITIES: Has erythema which has decreased, still swelling. NEUROLOGIC: Awake and alert. Follows simple commands. MEDICATIONS: She is on albuterol and Atrovent nebulizer q.6 hour, Brovana inhaled twice a day, Colace 100 mg twice a day, Coumadin 4 mg daily, Cymbalta 90 mg daily, Dilaudid 0.5 mg q.4 hours p.r.n., Lasix 20 mg IV daily, Lipitor 10 mg daily, MiraLax 17 g daily, Norvasc 10 mg daily, Pepcid 40 mg at bedtime, Protonix 40 mg daily, budesonide inhaled twice a day, Toprol-XL 100 mg twice a day, Tylenol p.r.n. basis, vancomycin 1 g IV q.12 hour, Xanax 0.5 mg twice a day, Zestril 40 mg daily and Zosyn 3.375 g IV q.8 hour. LABORATORY DATA: Reviewed, INR today 2.45. Had echocardiogram done today which shows right ventricular systolic pressure is 33, mild concentric left ventricular hypertrophy, left ventricular function is normal. IMPRESSION AND PLAN: Cellulitis both lower extremity slowly improving, history of pulmonary embolism, deep venous thrombosis, may have sleep apnea syndrome, hypertension, migraine headaches, cardiac mild diastolic dysfunction, mild pulmonary hypertension. We will follow up for sleep study. Continue bronchodilator. Keep head at 45 degrees, diuretics, antibiotics, stool softener, anticoagulation. In the past, she has recurrent thromboembolic disease. Thank you and we will follow with you. Roman Hahn MD
--- NOTE | 2017-01-09 22:29 | CP.PCM.PN ---
Subjective - Date & Time of Evaluation Date of Evaluation: 01/09/17 Time of Evaluation: 20:15 - Subjective Subjective: Infectious Disease Follow Up: January 09, 2017 66 yo female with bilateral lower extremity erythema starting 3 days ago with episodes of chills. The patient has several hospitalizations over the past few years. No other symptoms given. Legs swelling with left worse than right. Erythema of the left worse than the right. Patient has a medical history of COPD, right eye blindness, history of pulmonary embolism, migraine, DVT, and HTN. The patient also mentions a history of excessive head sweating at night for the last few months. Still with erythema of the bilateral lower extremities. Improvement of the cellulitis on the left lower leg remains very slow. Sign of chronic venous stasis on the left lower leg. Objective - Vital Signs/Intake and Output Vital Signs (last 24 hours): Temp Pulse Resp BP Pulse Ox 98.2 F 73 18 109/72 96 01/09/17 17:30 01/09/17 17:30 01/09/17 17:30 01/09/17 17:30 01/09/17 17:30 - Medications Medications: Current Medications Acetaminophen (Tylenol 325mg Tab) 650 mg PO Q4H PRN; Protocol PRN Reason: Pain, Mild (1-3) Albuterol Sulfate (Albuterol 0.083% Inhal Mile (2.5 Mg/3 Ml) Ud) 2.5 mg INH [id number] KRISTYN PRN Reason: Protocol Last Admin: 01/09/17 19:19 Dose: 2.5 mg Alprazolam (Xanax) 0.5 mg PO BID KRISTYN PRN Reason: Protocol Last Admin: 01/09/17 18:08 Dose: 0.5 mg Amlodipine Besylate (Norvasc) 10 mg PO DAILY KRISTYN PRN Reason: Protocol Last Admin: 01/09/17 11:04 Dose: 10 mg Arformoterol Tartrate (Brovana) 15 mcg IH [id number] KRISTYN PRN Reason: Protocol Last Admin: 01/09/17 19:19 Dose: 15 mcg Atorvastatin Calcium (Lipitor) 10 mg PO DIN KRISTYN PRN Reason: Protocol Last Admin: 01/09/17 18:01 Dose: 10 mg Budesonide (Pulmicort Respules) 0.5 mg IH [id number] KRISTYN PRN Reason: Protocol Last Admin: 01/09/17 19:20 Dose: 0.5 mg Docusate Sodium (Colace) 100 mg PO BID KRISTYN PRN Reason: Protocol Last Admin: 01/09/17 18:05 Dose: 100 mg Duloxetine HCl (Cymbalta) 90 mg PO DAILY KRISTYN PRN Reason: Protocol Last Admin: 01/09/17 11:03 Dose: 90 mg Famotidine (Pepcid) 40 mg PO HS KRISTYN PRN Reason: Protocol Last Admin: 01/08/17 21:55 Dose: 40 mg Furosemide (Lasix) 20 mg IVP DAILY KRISTYN PRN Reason: Protocol Last Admin: 01/09/17 11:03 Dose: 20 mg Home Med (Home Med) 1 unit PO HS KRISTYN PRN Reason: Protocol Last Admin: 01/08/17 21:55 Dose: 1 unit Hydromorphone HCl (Dilaudid) 0.5 mg IVP Q4H PRN; Protocol PRN Reason: Pain, moderate (4-7) Last Admin: 01/09/17 20:31 Dose: 0.5 mg Vancomycin HCl (Vancomycin 1gm) 1 gm in 250 mls @ 167 mls/hr IVPB 0600,1800 KRISTYN PRN Reason: Protocol Last Admin: 01/09/17 18:06 Dose: 167 mls/hr Piperacillin Sod/Tazobactam Sod (Zosyn 3.375 In Ns 100ml) 100 mls @ 200 mls/hr IVPB 0600,1200,1800,0000 KRISTYN PRN Reason: Protocol Last Admin: 01/09/17 18:06 Dose: 200 mls/hr Lisinopril (Zestril) 40 mg PO DAILY KRISTYN PRN Reason: Protocol Last Admin: 01/09/17 11:04 Dose: 40 mg Pantoprazole Sodium (Protonix Ec Tab) 40 mg PO 0600 KRISTYN PRN Reason: Protocol Last Admin: 01/09/17 05:12 Dose: 40 mg Polyethylene Glycol (Miralax) 17 gm PO DAILY KRISTYN PRN Reason: Protocol Last Admin: 01/09/17 11:04 Dose: 17 gm Topiramate (Topamax) 100 mg PO BID KRISTYN PRN Reason: Protocol Last Admin: 01/09/17 18:05 Dose: 100 mg Warfarin Sodium (Coumadin) 4 mg PO 1800 KRISTYN PRN Reason: Protocol Last Admin: 01/09/17 18:05 Dose: 4 mg - Labs Labs: 01/06/17 05:45 PT 26.5 Seconds (9.9-11.8) H 01/09/17 05:30 INR 2.45 (0.93-1.08) H 01/09/17 05:30 - Constitutional Appears: Non-toxic, No Acute Distress, Chronically Ill - Head Exam Head Exam: ATRAUMATIC, NORMOCEPHALIC - Eye Exam Eye Exam: EOMI, PERRL Pupil Exam: NORMAL ACCOMODATION, PERRL - ENT Exam ENT Exam: Mucous Membranes Moist, Normal External Ear Exam, TM's Normal Bilaterally - Neck Exam Neck Exam: Full ROM, Normal Inspection - Respiratory Exam Respiratory Exam: Clear to Ausculation Bilateral, NORMAL BREATHING PATTERN. absent: Rales, Rhonchi, Wheezes - Cardiovascular Exam Cardiovascular Exam: REGULAR RHYTHM, RRR, +S1, +S2 - GI/Abdominal Exam GI & Abdominal Exam: Soft, Normal Bowel Sounds. absent: Distended, Tenderness - Extremities Exam Extremities Exam: Full ROM, Joint Swelling, Pedal Edema Additional comments: increased warmth and swelling to the bilateral lower extremities. Left worse than right. +2 edema. slight improvement in left lower leg from the past 2 days. - Neurological Exam Neurological Exam: Alert, Awake, CN II-XII Intact, Oriented x3 - Psychiatric Exam Psychiatric exam: Normal Affect, Normal Mood - Skin Skin Exam: Intact Additional comments: As above. Assessment and Plan - Assessment and Plan (Free Text) Assessment: 66 yo female with presentation of erythema and swelling of the bilateral lower legs. The patient denies fevers and chills. Currently received IV Vancomycin and Zosyn in the ER. The patient has no allergies to antibiotics. Supportive care. No leukocytosis. Signs of chronic venous stasis especially in the left lower leg. ESR of 20 and C-Reactive protein of 5.22. Cellulitis of the lower legs is mild to moderate with the left being worse than the right lower leg. Continue IV Vancomycin and Zosyn for now. Looking to complete 10-14 day course. Improvement to left lower leg continues to be very slow. Thank you for allowing me to participate in the care of the patient, we will follow with you.
[2017-01-10] MEDS: [UNRECOGNIZED DRUG - OTHER] PO SCH ×2 (00:09→22:36)
[2017-01-10] MEDS: Piperacillin/Tazobact 3.375 gm 100 ML IVPB SCH ×4 (00:10→17:18)
[2017-01-10] MEDS: Albuterol 0.083% Inhal Sol (2.5 mg/3 mL) UD INH SCH ×4 (01:26→19:30)
--- NOTE | 2017-01-10 02:27 | PN ---
DATE: SUBJECTIVE: The patient is a 66-year-old female. The patient was seen and examined on the bedside, looking comfortable. Just finished her physical therapy, legs are getting better. Cough is better, shortness of breath is better. No nausea or vomiting. No headache. No dizziness. No fever. No chills. PHYSICAL EXAMINATION VITAL SIGNS: Temperature 98, heart rate 77, respiratory rate 18, blood pressure 128/75 and pulse oximetry 92% on room air. HEENT: Head; normocephalic and atraumatic. Eyes; PERRLA. Extraocular muscles intact. Conjunctivae clear. Nose patent. Mucous membranes moist. NECK: Supple. No carotid bruits, JVD or thyromegaly. LUNGS: Fair flow with few rhonchi. HEART: S1 and S2 positive. ABDOMEN: Soft and nontender. No organomegaly. EXTREMITIES: The patient still has erythema, but it is decreasing, swelling is getting better. NEUROLOGICAL: The patient is awake and alert. Follow simple commands and oriented x3. LABORATORY DATA: We do not have recent labs, but I reviewed old labs. MEDICATIONS: Albuterol, Brovana, Colace, Coumadin, Cymbalta, Dilaudid, Lasix, Lipitor, MiraLax, Norvasc, Pepcid, Protonix, Toprol, Tylenol, vancomycin, Xanax, Zestril and Zosyn. ASSESSMENT AND PLAN: Ms. Ynes Johns is a 66-year-old came with cellulitis of the leg. It is improving, but very slowly, history of pulmonary thrombosis, sleep apnea precautions, hypertension, migraine, mild diastolic dysfunction, mild pulmonary hypertension, obesity. We will follow up for sleep study. Continue present treatment. Gastrointestinal and deep venous thrombosis prophylaxis. Continue present antibiotics. Physical therapy will follow. Lucy Rajput MD MTDD
[2017-01-10] MEDS: HYDROmorphone 0.5 mg/0.5 ml ISec IVP PRN ×2 (03:31→20:36)
[2017-01-10] MEDS: Pantoprazole 40 mg EC Tab PO SCH (05:52)
[2017-01-10] MEDS: Vancomycin 1gm in NS 250ml 1 GM/250 ML BAG IVPB SCH ×2 (05:53→17:19)
[2017-01-10] MEDS: Budesonide 0.5 mg/2 ml Inhal Susp UD IH SCH ×2 (07:15→19:30)
[2017-01-10] MEDS: Arformoterol 15 mcg/2 ml Inh Sol IH SCH ×2 (07:15→19:30)
[2017-01-10 08:23] LABS: INR 2.45 (0.93-1.08)
[2017-01-10] MEDS: POLYETHYLENE GLYCOL 3350 17 GM/Dose PACKET PO SCH (09:54)
--- NOTE | 2017-01-10 18:39 | CP.PCM.PN ---
Subjective - Date & Time of Evaluation Date of Evaluation: 01/10/17 Time of Evaluation: 18:00 - Subjective Subjective: Infectious Disease Follow Up: January 10, 2017 66 yo female with bilateral lower extremity erythema starting 3 days ago with episodes of chills. The patient has several hospitalizations over the past few years. No other symptoms given. Legs swelling with left worse than right. Erythema of the left worse than the right. Patient has a medical history of COPD, right eye blindness, history of pulmonary embolism, migraine, DVT, and HTN. The patient also mentions a history of excessive head sweating at night for the last few months. Still with erythema of the bilateral lower extremities. Improvement of the cellulitis on the left lower leg remains very slow. Sign of chronic venous stasis on the left lower leg. Objective - Vital Signs/Intake and Output Vital Signs (last 24 hours): Temp Pulse Resp BP Pulse Ox 98.7 F 75 18 148/87 96 01/10/17 10:54 01/10/17 10:54 01/10/17 10:54 01/10/17 10:54 01/10/17 10:54 - Medications Medications: Current Medications Acetaminophen (Tylenol 325mg Tab) 650 mg PO Q4H PRN; Protocol PRN Reason: Pain, Mild (1-3) Albuterol Sulfate (Albuterol 0.083% Inhal Mile (2.5 Mg/3 Ml) Ud) 2.5 mg INH [id number] KRISTYN PRN Reason: Protocol Last Admin: 01/10/17 13:41 Dose: 2.5 mg Alprazolam (Xanax) 0.5 mg PO BID KRISTYN PRN Reason: Protocol Last Admin: 01/10/17 17:23 Dose: 0.5 mg Amlodipine Besylate (Norvasc) 10 mg PO DAILY KRISTYN PRN Reason: Protocol Last Admin: 01/10/17 10:10 Dose: 10 mg Arformoterol Tartrate (Brovana) 15 mcg IH [id number] KRISTYN PRN Reason: Protocol Last Admin: 01/10/17 07:15 Dose: 15 mcg Atorvastatin Calcium (Lipitor) 10 mg PO DIN KRISTYN PRN Reason: Protocol Last Admin: 01/10/17 17:21 Dose: 10 mg Budesonide (Pulmicort Respules) 0.5 mg IH [id number] KRISTYN PRN Reason: Protocol Last Admin: 01/10/17 07:15 Dose: 0.5 mg Docusate Sodium (Colace) 100 mg PO BID KRISTYN PRN Reason: Protocol Last Admin: 01/10/17 17:21 Dose: 100 mg Duloxetine HCl (Cymbalta) 90 mg PO DAILY KRISTYN PRN Reason: Protocol Last Admin: 01/10/17 09:55 Dose: 90 mg Famotidine (Pepcid) 40 mg PO HS KRISTYN PRN Reason: Protocol Last Admin: 01/10/17 00:09 Dose: Not Given Furosemide (Lasix) 20 mg IVP DAILY KRISTYN PRN Reason: Protocol Last Admin: 01/10/17 10:10 Dose: 20 mg Home Med (Home Med) 1 unit PO HS KRISTYN PRN Reason: Protocol Last Admin: 01/10/17 00:09 Dose: Not Given Hydromorphone HCl (Dilaudid) 0.5 mg IVP Q4H PRN; Protocol PRN Reason: Pain, moderate (4-7) Last Admin: 01/10/17 03:31 Dose: 0.5 mg Vancomycin HCl (Vancomycin 1gm) 1 gm in 250 mls @ 167 mls/hr IVPB 0600,1800 KRISTYN PRN Reason: Protocol Last Admin: 01/10/17 17:19 Dose: 167 mls/hr Piperacillin Sod/Tazobactam Sod (Zosyn 3.375 In Ns 100ml) 100 mls @ 200 mls/hr IVPB 0600,1200,1800,0000 KRISTYN PRN Reason: Protocol Last Admin: 01/10/17 17:18 Dose: 200 mls/hr Lisinopril (Zestril) 40 mg PO DAILY KRISTYN PRN Reason: Protocol Last Admin: 01/10/17 09:54 Dose: 40 mg Mupirocin (Bactroban Ointment) 0 gm TOP BID KRISTYN PRN Reason: Protocol Last Admin: 01/10/17 17:22 Dose: 1 applic Pantoprazole Sodium (Protonix Ec Tab) 40 mg PO 0600 KRISTYN PRN Reason: Protocol Last Admin: 01/10/17 05:52 Dose: 40 mg Polyethylene Glycol (Miralax) 17 gm PO DAILY KRISTYN PRN Reason: Protocol Last Admin: 01/10/17 09:54 Dose: 17 gm Topiramate (Topamax) 100 mg PO BID KRISTYN PRN Reason: Protocol Last Admin: 01/10/17 17:20 Dose: 100 mg Warfarin Sodium (Coumadin) 4 mg PO 1800 KRISTYN PRN Reason: Protocol Last Admin: 01/10/17 17:21 Dose: 4 mg - Labs Labs: 01/06/17 05:45 PT 27.4 SECONDS (9.4-12.5) H 01/10/17 07:40 INR 2.45 (0.93-1.08) H 01/10/17 07:40 - Constitutional Appears: Non-toxic, No Acute Distress, Chronically Ill - Head Exam Head Exam: ATRAUMATIC, NORMOCEPHALIC - Eye Exam Eye Exam: EOMI, PERRL Pupil Exam: NORMAL ACCOMODATION, PERRL - ENT Exam ENT Exam: Mucous Membranes Moist, Normal External Ear Exam, TM's Normal Bilaterally - Neck Exam Neck Exam: Full ROM, Normal Inspection - Respiratory Exam Respiratory Exam: Clear to Ausculation Bilateral, NORMAL BREATHING PATTERN. absent: Rales, Rhonchi, Wheezes - Cardiovascular Exam Cardiovascular Exam: REGULAR RHYTHM, RRR, +S1, +S2 - GI/Abdominal Exam GI & Abdominal Exam: Soft, Normal Bowel Sounds. absent: Distended, Tenderness - Extremities Exam Extremities Exam: Full ROM, Joint Swelling, Pedal Edema Additional comments: increased warmth and swelling to the bilateral lower extremities. Left worse than right. +2 edema. slight improvement in left lower leg from the past 2 days. - Neurological Exam Neurological Exam: Alert, Awake, CN II-XII Intact, Oriented x3 - Psychiatric Exam Psychiatric exam: Normal Affect, Normal Mood - Skin Skin Exam: Intact Additional comments: As above. Assessment and Plan - Assessment and Plan (Free Text) Assessment: 66 yo female with presentation of erythema and swelling of the bilateral lower legs. The patient denies fevers and chills. Currently received IV Vancomycin and Zosyn in the ER. The patient has no allergies to antibiotics. Supportive care. No leukocytosis. Signs of chronic venous stasis especially in the left lower leg. ESR of 20 and C-Reactive protein of 5.22. Cellulitis of the lower legs is mild to moderate with the left being worse than the right lower leg. Continue IV Vancomycin and Zosyn for now. Looking to complete 10-14 day course. Improvement to left lower leg continues to be very slow. Thank you for allowing me to participate in the care of the patient, we will follow with you.
--- NOTE | 2017-01-10 23:15 | PN ---
SUBJECTIVE: The patient is a 66-year-old female. The patient was seen and examined on the bedside. done with her physical therapist, still has swelling, red, warm but improving. Blind from right eye. No nausea or vomiting. Had episode of headache yesterday night; she has a history of migraine, but she do not have any headache. No fever. No chills. PHYSICAL EXAMINATION: VITAL SIGNS: Temperature 98.7, pulse 75, respiratory rate 18, blood pressure 148/87 and pulse oximetry of 96%. HEENT: Head is normocephalic and atraumatic. Eyes: PERRLA. Extraocular muscles intact. Conjunctivae clear. Nose patent. Mucous membrane moist. NECK: Supple. No carotid bruits. No JVD or thyromegaly. CHEST: Bilaterally symmetrical. HEART: S1 and S2 positive. LUNGS: Clear to auscultation. ABDOMEN: Soft. Bowel sounds positive. No organomegaly. EXTREMITIES: Positive edema. No cyanosis, but has redness. MEDICATIONS: Albuterol, Xanax, Norvasc, Brovana, Lipitor, Pulmicort, Colace, Cymbalta, Pepcid, Lasix, Dilaudid, Zestril, Bactroban cream, vancomycin, Protonix, MiraLax and Coumadin. LABORATORY DATA: White blood cell is 4.6, hemoglobin 11.2, hematocrit 35.8 and platelets 196. ASSESSMENT AND PLAN: Ms. Ynes Johns is a 66-year-old lady with anemia, erythema, swelling of the bilateral lower extremities. The patient denies fevers or chills. Receiving vancomycin and Zosyn. The patient has no allergy to the antibiotics, supportive care, no leucocytosis; signs of chronic venous stasis, especially in the left lower leg. ESR 20 and C-reactive protein is 5.22. History of obesity; asthma; history of pulmonary emboli; cellulitis of the lower extremities, mild to moderate, with left being worse than the right lower leg. We will continue vancomycin and Zosyn and complete the 4 to 10 days course of antibiotics. Lower extremity care, physical therapy and we will follow. Lucy Rajput MD MTDNorris
[2017-01-11] MEDS: Albuterol 0.083% Inhal Sol (2.5 mg/3 mL) UD INH SCH ×4 (01:37→20:11)
[2017-01-11] MEDS: Piperacillin/Tazobact 3.375 gm 100 ML IVPB SCH ×4 (02:19→20:12)
--- NOTE | 2017-01-11 04:18 | PN ---
DATE: PULMONARY PROGRESS NOTE REFERRING PHYSICIAN: Lucy Rajput MD SUBJECTIVE: She is lying in the bed, just finished her dinner, feels okay. Did have episode of headache last night. No nausea or vomiting. No diarrhea. Still has leg swelling and erythema. OBJECTIVE: GENERAL: In no acute distress. VITAL SIGNS: Temperature 98, heart rate 75, respiratory rate is 18, blood pressure is 148/87 and pulse ox 96% on room air. HEENT: Moist mucous membrane. Crowded airway. Mallampati score is 4. NECK: Supple. No JVD. LUNGS: Fair airflow with rhonchi. HEART: S1 and S2. ABDOMEN: Soft and nontender. No organomegaly. EXTREMITIES: Has edema and erythema of the lower extremities. NEUROLOGIC: Awake and alert. Follows simple commands. LABORATORY DATA: Reviewed. INR today is 2.45. MEDICATIONS: She is on albuterol-Atrovent nebulizer q. 6 hours, Bactroban ointment to affected area twice a day, Brovana inhaled twice a day, Colace 100 mg twice a day, Coumadin 4 mg given today, Cymbalta 90 mg daily, Dilaudid 0.5 mg q. 4 hours p.r.n., Lasix 20 mg daily, Lipitor 10 mg daily, MiraLax 17 g twice daily, Norvasc 10 mg daily, Pepcid 40 mg at bedtime, Protonix 40 mg daily, Pulmicort inhaled twice a day, Topamax 100 mg twice a day, Tylenol p.r.n. basis, vancomycin 1 g IV twice a day, Xanax 0.5 mg twice a day, Zestril 40 mg daily, Zosyn 3.675 g q. 8 hours. IMPRESSION AND PLAN: Cellulitis of both lower extremities, slowly improving; history of pulmonary embolism; history of recurrent deep venous thrombosis, may have sleep apnea syndrome, hypertension, migraine headache, mild diastolic dysfunction, mild pulmonary hypertension. Continue antibiotics, keep head at 45 degrees, sleep apnea precaution, anticoagulation, gastric prophylaxis, fall precautions. INR in the morning. Thank you, and we will follow with you. Roman Hahn MD
[2017-01-11] MEDS: Pantoprazole 40 mg EC Tab PO SCH (05:45)
[2017-01-11] MEDS: Vancomycin 1gm in NS 250ml 1 GM/250 ML BAG IVPB SCH ×2 (05:46→17:26)
[2017-01-11] MEDS: Budesonide 0.5 mg/2 ml Inhal Susp UD IH SCH ×2 (07:07→20:11)
[2017-01-11] MEDS: Arformoterol 15 mcg/2 ml Inh Sol IH SCH ×2 (07:07→20:11)
[2017-01-11 08:52] LABS: INR 2.57 (0.93-1.08)
[2017-01-11] MEDS: POLYETHYLENE GLYCOL 3350 17 GM/Dose PACKET PO SCH (09:13)
--- NOTE | 2017-01-11 16:04 | CP.PCM.PN ---
Subjective - Date & Time of Evaluation Date of Evaluation: 01/11/17 Time of Evaluation: 15:15 - Subjective Subjective: Infectious Disease Follow Up: January 11, 2017 66 yo female with bilateral lower extremity erythema starting 3 days ago with episodes of chills. The patient has several hospitalizations over the past few years. No other symptoms given. Legs swelling with left worse than right. Erythema of the left worse than the right. Patient has a medical history of COPD, right eye blindness, history of pulmonary embolism, migraine, DVT, and HTN. The patient also mentions a history of excessive head sweating at night for the last few months. Still with erythema of the bilateral lower extremities. Improvement of the cellulitis on the left lower leg remains very slow but steady. Sign of chronic venous stasis on the left lower leg. Objective - Vital Signs/Intake and Output Vital Signs (last 24 hours): Temp Pulse Resp BP Pulse Ox 98.2 F 70 20 118/77 95 01/11/17 06:00 01/11/17 06:00 01/11/17 06:00 01/11/17 11:29 01/11/17 06:00 - Medications Medications: Current Medications Acetaminophen (Tylenol 325mg Tab) 650 mg PO Q4H PRN; Protocol PRN Reason: Pain, Mild (1-3) Albuterol Sulfate (Albuterol 0.083% Inhal Mile (2.5 Mg/3 Ml) Ud) 2.5 mg INH [id number] KRISTYN PRN Reason: Protocol Last Admin: 01/11/17 13:03 Dose: 2.5 mg Alprazolam (Xanax) 0.5 mg PO BID KRISTYN PRN Reason: Protocol Last Admin: 01/11/17 11:28 Dose: 0.5 mg Amlodipine Besylate (Norvasc) 10 mg PO DAILY KRISTYN PRN Reason: Protocol Last Admin: 01/11/17 09:13 Dose: 10 mg Arformoterol Tartrate (Brovana) 15 mcg IH [id number] KRISTYN PRN Reason: Protocol Last Admin: 01/11/17 07:07 Dose: 15 mcg Atorvastatin Calcium (Lipitor) 10 mg PO DIN KRISTYN PRN Reason: Protocol Last Admin: 01/10/17 17:21 Dose: 10 mg Budesonide (Pulmicort Respules) 0.5 mg IH [id number] KRISTYN PRN Reason: Protocol Last Admin: 01/11/17 07:07 Dose: 0.5 mg Docusate Sodium (Colace) 100 mg PO BID KRISTYN PRN Reason: Protocol Last Admin: 01/11/17 09:12 Dose: 100 mg Duloxetine HCl (Cymbalta) 90 mg PO DAILY KRISTYN PRN Reason: Protocol Last Admin: 01/11/17 09:12 Dose: 90 mg Famotidine (Pepcid) 40 mg PO HS KRISTYN PRN Reason: Protocol Last Admin: 01/10/17 22:36 Dose: 40 mg Furosemide (Lasix) 20 mg IVP DAILY KRISTYN PRN Reason: Protocol Last Admin: 01/11/17 11:29 Dose: 20 mg Home Med (Home Med) 1 unit PO HS KRISTYN PRN Reason: Protocol Last Admin: 01/10/17 22:36 Dose: 1 unit Hydromorphone HCl (Dilaudid) 0.5 mg IVP Q4H PRN; Protocol PRN Reason: Pain, moderate (4-7) Last Admin: 01/10/17 20:36 Dose: 0.5 mg Vancomycin HCl (Vancomycin 1gm) 1 gm in 250 mls @ 167 mls/hr IVPB 0600,1800 KRISTYN PRN Reason: Protocol Last Admin: 01/11/17 05:46 Dose: 167 mls/hr Piperacillin Sod/Tazobactam Sod (Zosyn 3.375 In Ns 100ml) 100 mls @ 200 mls/hr IVPB 0600,1200,1800,0000 KRISTYN PRN Reason: Protocol Last Admin: 01/11/17 12:02 Dose: 200 mls/hr Lisinopril (Zestril) 40 mg PO DAILY KRISTYN PRN Reason: Protocol Last Admin: 01/11/17 09:15 Dose: 40 mg Mupirocin (Bactroban Ointment) 0 gm TOP BID KRISTYN PRN Reason: Protocol Last Admin: 01/11/17 11:58 Dose: 1 applic Pantoprazole Sodium (Protonix Ec Tab) 40 mg PO 0600 KRISTYN PRN Reason: Protocol Last Admin: 01/11/17 05:45 Dose: 40 mg Polyethylene Glycol (Miralax) 17 gm PO DAILY KRISTYN PRN Reason: Protocol Last Admin: 01/11/17 09:13 Dose: Not Given Topiramate (Topamax) 100 mg PO BID KRISTYN PRN Reason: Protocol Last Admin: 01/11/17 09:14 Dose: 100 mg Warfarin Sodium (Coumadin) 4 mg PO 1800 KRISTYN PRN Reason: Protocol Last Admin: 01/10/17 17:21 Dose: 4 mg - Labs Labs: 01/06/17 05:45 PT 28.8 SECONDS (9.4-12.5) H 01/11/17 08:30 INR 2.57 (0.93-1.08) H 01/11/17 08:30 - Constitutional Appears: Non-toxic, No Acute Distress, Chronically Ill - Head Exam Head Exam: ATRAUMATIC, NORMOCEPHALIC - Eye Exam Eye Exam: EOMI, PERRL Pupil Exam: NORMAL ACCOMODATION, PERRL - ENT Exam ENT Exam: Mucous Membranes Moist, Normal External Ear Exam, TM's Normal Bilaterally - Neck Exam Neck Exam: Full ROM, Normal Inspection - Respiratory Exam Respiratory Exam: Clear to Ausculation Bilateral, NORMAL BREATHING PATTERN. absent: Rales, Rhonchi, Wheezes - Cardiovascular Exam Cardiovascular Exam: REGULAR RHYTHM, RRR, +S1, +S2 - GI/Abdominal Exam GI & Abdominal Exam: Soft, Normal Bowel Sounds. absent: Distended, Tenderness - Extremities Exam Additional comments: increased warmth and swelling to the bilateral lower extremities. Left worse than right. +2 edema. slight improvement in left lower leg from the past 4 days. - Neurological Exam Neurological Exam: Alert, Awake, CN II-XII Intact, Oriented x3 - Psychiatric Exam Psychiatric exam: Normal Affect, Normal Mood - Skin Skin Exam: Intact Additional comments: As above Assessment and Plan - Assessment and Plan (Free Text) Assessment: 66 yo female with presentation of erythema and swelling of the bilateral lower legs. The patient denies fevers and chills. Currently received IV Vancomycin and Zosyn in the ER. The patient has no allergies to antibiotics. Supportive care. No leukocytosis. Signs of chronic venous stasis especially in the left lower leg. ESR of 20 and C-Reactive protein of 5.22. Cellulitis of the lower legs is mild to moderate with the left being worse than the right lower leg. Continue IV Vancomycin and Zosyn for now. Looking to complete 10-14 day course. Improvement to left lower leg continues to be very slow but steady. Thank you for allowing me to participate in the care of the patient, we will follow with you.
[2017-01-11 17:04] VITALS: RESP 18
[2017-01-11] MEDS ORDERED: Apap-Butalbital-Caffeine 325-50-40mg Tab PO PRN (17:17)
[2017-01-11] MEDS: HYDROmorphone 0.5 mg/0.5 ml ISec IVP PRN (19:52)
--- NOTE | 2017-01-11 22:27 | PN ---
DATE: SUBJECTIVE: The patient is a 66-year-old female. The patient was seen and examined on the bedside. Having migraine headache, Fioricet given, history of migraine, but was stable throughout her admission, getting Topamax for migraine prevention. No shortness of breath. No fever. No chills. Legs redness is getting better. No more warm. PHYSICAL EXAMINATION: VITAL SIGNS: Temperature 98.4, pulse 70, blood pressure 110/70, and respiratory rate 18. HEENT: Head is normocephalic and atraumatic. Eyes; PERRLA. Extraocular muscles intact. Conjunctivae clear. Nose patent. Mucous membrane moist. NECK: Supple. No carotid bruits. No JVD or thyromegaly. CHEST: Bilaterally symmetrical. HEART: S1 and S2 positive. LUNGS: Clear to auscultation. ABDOMEN: Soft. Bowel sounds positive. No organomegaly. EXTREMITIES: Still positive edema, redness and warmth. NEUROLOGICAL: The patient is awake and alert. Moving all 4 extremities. No focal deficits. MEDICATIONS: Albuterol, Bactroban cream, Brovana, Colace, Coumadin, Cymbalta, hydromorphone, Lasix, Lipitor, MiraLax, Norvasc, Pepcid, Protonix, Pulmicort, Topamax, Tylenol, Xanax, Zestril, and Zosyn. LABORATORY DATA: We do not have recent labs today, but I reviewed old labs. INR is 2.57. ASSESSMENT AND PLAN: Ms. Andreas Quick is a 66-year-old lady with history of migraine, today has exacerbation of migraine, getting to Topamax, Fioricet given. The patient is orally getting Dilaudid, cellulitis of lower extremity now improving, history of pulmonary embolism and getting Coumadin. INR is within therapeutic range, history of deep vein thrombosis, also sleep apnea syndrome, hypertension, mild diastolic dysfunction, and mild pulmonary hypertension. Continue antibiotics as per Infectious Disease. We will observe migraine. Continue present treatment. Gastrointestinal and deep vein thrombosis prophylaxis. Continue physical therapy. We will followup. Lucy Rajput MD
[2017-01-11] MEDS: [UNRECOGNIZED DRUG - OTHER] PO SCH (22:44)
--- NOTE | 2017-01-12 02:23 | PN ---
DATE: 01/11/2017 PULMONARY PROGRESS NOTE REFERRING PHYSICIAN: Dr. Rajput. SUBJECTIVE: The patient is ambulating, mild headache, no cough, no shortness of breath. No chest pain, no nausea. Still has leg swelling, decreased erythema. OBJECTIVE: GENERAL: In no acute distress. VITAL SIGNS: Temperature is 98, heart rate 70, respiratory rate is 20, blood pressure 110/71, pulse ox 97% on room air. HEENT: Moist mucous membranes. Crowded airway. NECK: Supple. No JVD. LUNGS: Have fair airflow with few rhonchi. HEART: S1 and S2. ABDOMEN: Soft, nontender. No organomegaly. EXTREMITIES: There is no edema. NEUROLOGIC: Awake, alert. Follows simple commands. MEDICATIONS: She is on albuterol/Atrovent nebulizer q. 6 hours, bacitracin ointment twice a day, Brovana inhaled twice a day, Colace 100 mg twice a day, Coumadin 4 mg at bedtime, Cymbalta 90 mg daily, Dilaudid 0.5 mg q. 4 hours p.r.n., Fioricet 1 tablet twice a day p.r.n., Lasix 20 mg IV daily, Lipitor 10 mg daily, MiraLax 17 g daily, Norvasc 10 mg daily, Pepcid 40 mg at bedtime, Protonix 20 mg daily, Pulmicort inhaled twice a day, Topamax 100 mg twice a day, Tylenol p.r.n., Xanax 0.5 mg twice a day, Zestril 10 mg daily, and Zosyn 3.375 g q. 6 hours. LABORATORY DATA: Shows INR 2.57. IMPRESSION AND PLAN: Cellulitis of both lower extremities, history of thromboembolic disease with deep venous thrombosis and pulmonary embolism, may have sleep apnea syndrome, hypertension, migraine headache, mild cardiac diastolic dysfunction, pulmonary hypertension. Continue bronchodilator, keep head at 45 degrees, anticoagulation, diuretics, antibiotics, fall precaution, and continue therapy. Thank you and we will follow with you. Roman Hahn MD
[2017-01-12] MEDS: Albuterol 0.083% Inhal Sol (2.5 mg/3 mL) UD INH SCH ×4 (03:27→20:15)
[2017-01-12] MEDS: Pantoprazole 40 mg EC Tab PO SCH (05:44)
[2017-01-12] MEDS: Piperacillin/Tazobact 3.375 gm 100 ML IVPB SCH ×4 (05:44→18:27)
[2017-01-12 06:18] VITALS: O2SAT 98
[2017-01-12] MEDS: Budesonide 0.5 mg/2 ml Inhal Susp UD IH SCH ×2 (07:19→20:15)
[2017-01-12] MEDS: Arformoterol 15 mcg/2 ml Inh Sol IH SCH ×2 (07:19→20:15)
[2017-01-12 09:01] LABS: INR 2.72 (0.93-1.08)
[2017-01-12] MEDS: POLYETHYLENE GLYCOL 3350 17 GM/Dose PACKET PO SCH (09:43)
[2017-01-12] MEDS: HYDROmorphone 0.5 mg/0.5 ml ISec IVP PRN ×2 (09:56→18:38)
[2017-01-12] MEDS ORDERED: Apap-Butalbital-Caffeine 325-50-40mg Tab PO PRN (14:55)
[2017-01-12 16:47] VITALS: PULSE 81; TEMP 97.4
--- NOTE | 2017-01-12 16:59 | PN ---
SUBJECTIVE: The patient is a 66-year-old female. The patient is seen and examined at the bedside, still complaining about migraine. No nausea or vomiting. No chest pain or palpitation. No shortness of breath. No fever. No chills. No hematuria. No hematochezia. PHYSICAL EXAMINATION: VITAL SIGNS: Temperature 98.2, pulse 66, blood pressure 114/72, respiratory rate 18, saturation 97% on room air. HEENT: Head, normocephalic, atraumatic. Eyes, PERRLA. Extraocular muscles intact. Conjunctivae clear. Nose patent. Mucous membrane moist. NECK: Supple. No carotid bruits. No JVD or thyromegaly. CHEST: Bilaterally symmetrical. HEART: S1 and S2 positive. LUNGS: Clear to auscultation. ABDOMEN: Soft. Bowel sounds positive. No organomegaly. EXTREMITIES: No edema. No cyanosis. NEUROLOGIC: The patient is awake and alert. Moving all 4 extremities. No focal deficits. MEDICATIONS: Albuterol, Bactroban, Brovana, Colace, Coumadin, Cymbalta, Dilaudid, Fioricet, Lasix, Lipitor, MiraLax, Norvasc, Pepcid. LABORATORY DATA: We do not have recent lab today but reviewed old labs. INR is 2.72. PT is 30.5. ASSESSMENT AND PLAN: Ms. Andreas Quick is a 66-year-old lady, has history of migraine, has exacerbation of migraine, already taking Topamax, last night gave a dose of Fioricet, helping but not fully. Now, I made her Fioricet every 8 hours as needed for headache. Legs are getting better, but still warm and red, slowly improving. No chest pain. No shortness of breath. No fever. No chills. Cellulitis of lower extremities, history of thromboembolic disease with deep vein thrombosis, pulmonary embolism, sleep apnea syndrome, hypertension, mild diastolic dysfunction, pulmonary hypertension, getting intravenous antibiotics and bronchodilators. Infectious Disease is on the case. For atrial fibrillation getting Coumadin. INR is within therapeutic range. Fall precautions. Continue physical therapy and Coumadin. We will follow up. Lucy Rajput MD
--- NOTE | 2017-01-12 17:22 | CP.PCM.PN ---
Subjective - Date & Time of Evaluation Date of Evaluation: 01/12/17 Time of Evaluation: 15:15 - Subjective Subjective: Infectious Disease Follow Up: January 12, 2017 66 yo female with bilateral lower extremity erythema starting 3 days ago with episodes of chills. The patient has several hospitalizations over the past few years. No other symptoms given. Legs swelling with left worse than right. Erythema of the left worse than the right. Patient has a medical history of COPD, right eye blindness, history of pulmonary embolism, migraine, DVT, and HTN. The patient also mentions a history of excessive head sweating at night for the last few months. Still with erythema of the bilateral lower extremities. Improvement of the cellulitis on the left lower leg remains very slow but steady... it has mostly resolved at this point. Sign of chronic venous stasis on the left lower leg. Objective - Vital Signs/Intake and Output Vital Signs (last 24 hours): Temp Pulse Resp BP Pulse Ox 97.4 F L 81 18 130/84 98 01/12/17 16:00 01/12/17 16:00 01/12/17 16:00 01/12/17 16:00 01/12/17 16:00 - Medications Medications: Current Medications Acetaminophen (Tylenol 325mg Tab) 650 mg PO Q4H PRN; Protocol PRN Reason: Pain, Mild (1-3) Last Admin: 01/11/17 16:32 Dose: 650 mg Acetaminophen/Butalbital/Caffeine (Fioricet) 1 tab PO Q8H PRN; Protocol PRN Reason: Pain, moderate (4-7) Albuterol Sulfate (Albuterol 0.083% Inhal Mile (2.5 Mg/3 Ml) Ud) 2.5 mg INH [id number] KRISTYN PRN Reason: Protocol Last Admin: 01/12/17 13:38 Dose: 2.5 mg Alprazolam (Xanax) 0.5 mg PO BID KRISTYN PRN Reason: Protocol Last Admin: 01/12/17 09:55 Dose: 0.5 mg Amlodipine Besylate (Norvasc) 10 mg PO DAILY KRISTYN PRN Reason: Protocol Last Admin: 01/12/17 09:43 Dose: 10 mg Arformoterol Tartrate (Brovana) 15 mcg IH [id number] KRISTYN PRN Reason: Protocol Last Admin: 01/12/17 07:19 Dose: 15 mcg Atorvastatin Calcium (Lipitor) 10 mg PO DIN KRISTYN PRN Reason: Protocol Last Admin: 01/11/17 17:25 Dose: 10 mg Budesonide (Pulmicort Respules) 0.5 mg IH [id number] KRISTYN PRN Reason: Protocol Last Admin: 01/12/17 07:19 Dose: 0.5 mg Docusate Sodium (Colace) 100 mg PO BID KRISTYN PRN Reason: Protocol Last Admin: 01/12/17 09:43 Dose: 100 mg Duloxetine HCl (Cymbalta) 90 mg PO DAILY KRISTYN PRN Reason: Protocol Last Admin: 01/12/17 09:44 Dose: 90 mg Famotidine (Pepcid) 40 mg PO HS KRISTYN PRN Reason: Protocol Last Admin: 01/11/17 22:44 Dose: 40 mg Furosemide (Lasix) 20 mg IVP DAILY KRISTYN PRN Reason: Protocol Last Admin: 01/12/17 09:45 Dose: 20 mg Home Med (Home Med) 1 unit PO HS KRISTYN PRN Reason: Protocol Last Admin: 01/11/17 22:44 Dose: 1 unit Hydromorphone HCl (Dilaudid) 0.5 mg IVP Q4H PRN; Protocol PRN Reason: Pain, moderate (4-7) Last Admin: 01/12/17 09:56 Dose: 0.5 mg Piperacillin Sod/Tazobactam Sod (Zosyn 3.375 In Ns 100ml) 100 mls @ 200 mls/hr IVPB 0600,1200,1800,0000 KRISTYN PRN Reason: Protocol Last Admin: 01/12/17 12:55 Dose: 200 mls/hr Lisinopril (Zestril) 40 mg PO DAILY KRISTYN PRN Reason: Protocol Last Admin: 01/12/17 09:44 Dose: 40 mg Mupirocin (Bactroban Ointment) 0 gm TOP BID KRISTYN PRN Reason: Protocol Last Admin: 01/12/17 09:42 Dose: 1 applic Pantoprazole Sodium (Protonix Ec Tab) 40 mg PO 0600 KRISTYN PRN Reason: Protocol Last Admin: 01/12/17 05:44 Dose: 40 mg Polyethylene Glycol (Miralax) 17 gm PO DAILY KRISTYN PRN Reason: Protocol Last Admin: 01/12/17 09:43 Dose: 17 gm Topiramate (Topamax) 100 mg PO BID KRISTYN PRN Reason: Protocol Last Admin: 01/12/17 09:44 Dose: 100 mg Warfarin Sodium (Coumadin) 4 mg PO 1800 KRISTYN PRN Reason: Protocol Last Admin: 01/11/17 17:24 Dose: 4 mg - Labs Labs: 01/06/17 05:45 PT 30.5 SECONDS (9.4-12.5) H 01/12/17 08:45 INR 2.72 (0.93-1.08) H 01/12/17 08:45 - Constitutional Appears: Non-toxic, No Acute Distress, Chronically Ill - Head Exam Head Exam: ATRAUMATIC, NORMOCEPHALIC - Eye Exam Eye Exam: EOMI, PERRL Pupil Exam: NORMAL ACCOMODATION, PERRL - ENT Exam ENT Exam: Mucous Membranes Moist, Normal External Ear Exam, TM's Normal Bilaterally - Neck Exam Neck Exam: Full ROM, Normal Inspection - Respiratory Exam Respiratory Exam: Clear to Ausculation Bilateral, NORMAL BREATHING PATTERN. absent: Rales, Rhonchi, Wheezes - Cardiovascular Exam Cardiovascular Exam: REGULAR RHYTHM, RRR, +S1, +S2 - GI/Abdominal Exam GI & Abdominal Exam: Soft, Normal Bowel Sounds. absent: Distended, Tenderness - Extremities Exam Extremities Exam: Joint Swelling, Pedal Edema Additional comments: increased warmth and swelling to the bilateral lower extremities. Left worse than right. +2 edema. moderate improvement in left lower leg from the past 4 days. - Neurological Exam Neurological Exam: Alert, Awake, CN II-XII Intact, Oriented x3 - Psychiatric Exam Psychiatric exam: Normal Affect, Normal Mood - Skin Skin Exam: Intact Additional comments: As above Assessment and Plan - Assessment and Plan (Free Text) Assessment: 66 yo female with presentation of erythema and swelling of the bilateral lower legs. The patient denies fevers and chills. Currently received IV Vancomycin and Zosyn in the ER. The patient has no allergies to antibiotics. Supportive care. No leukocytosis. Signs of chronic venous stasis especially in the left lower leg. ESR of 20 and C-Reactive protein of 5.22. Cellulitis of the lower legs is mild to moderate with the left being worse than the right lower leg. Continue IV Vancomycin and Zosyn for now. Looking to complete 10-14 day course. Improvement to left lower leg continues to be very slow but steady. It is mostly resolved at this point. Thank you for allowing me to participate in the care of the patient, we will follow with you.
[2017-01-13] MEDS: Piperacillin/Tazobact 3.375 gm 100 ML IVPB SCH ×3 (00:10→12:16)
[2017-01-13] MEDS: [UNRECOGNIZED DRUG - OTHER] PO SCH (00:57)
[2017-01-13] MEDS: Albuterol 0.083% Inhal Sol (2.5 mg/3 mL) UD INH SCH ×3 (01:04→13:10)
[2017-01-13] MEDS: Pantoprazole 40 mg EC Tab PO SCH (06:00)
[2017-01-13] MEDS: Arformoterol 15 mcg/2 ml Inh Sol IH SCH (07:10)
[2017-01-13 07:11] LABS: INR 2.59 (0.93-1.08)
[2017-01-13] MEDS: Budesonide 0.5 mg/2 ml Inhal Susp UD IH SCH (07:11)
--- NOTE | 2017-01-13 10:02 | PN ---
DATE: 01/12/2017 PULMONARY PROGRESS NOTE REFERRING PHYSICIAN: Dr. Rajput. SUBJECTIVE: Patient is sitting at the side of the bed, family is at bedside, feels much better. Decreased cough. Decreased shortness of breath. No nausea. No vomiting. No diarrhea. Decreased leg swelling. Decreased erythema of the lower extremity. OBJECTIVE: GENERAL: In no acute distress. VITAL SIGNS: Temperature is 98, heart rate 66, respiratory rate is 18, blood pressure 114/72, and pulse ox 98% on room air. HEENT: Moist mucous membranes. Crowded airway. Mallampati score is IV. NECK: Supple. No JVD. LUNGS: Fair airflow with rhonchi. HEART: S1 and S2. ABDOMEN: Soft and nontender. No organomegaly. EXTREMITIES: Lower extremity has erythema, but much improved. Edema is also much improved. MEDICATIONS: She is on albuterol/Atrovent nebulizer q.6 hours round the clock, Bactroban ointment to affected area twice a day, Brovana 15 mcg inhaled twice a day, Colace 100 mg twice a day, Coumadin 4 mg daily, Cymbalta 90 mg daily, Dilaudid 0.5 mg q.4 hours p.r.n., Fioricet 1 tablet p.o. q.8 hours p.r.n., Lasix 20 mg daily, Lipitor 10 mg daily, MiraLax 17 g daily, Norvasc 10 mg daily, Pepcid 40 mg at bedtime, Protonix 40 mg daily, Pulmicort inhaled twice a day, Topamax 100 mg twice a day, Tylenol p.r.n., Xanax 0.5 mg twice a day p.r.n., Zestril 20 mg daily, and Zosyn 3.375 g IV q.6 hours. LABORATORY DATA: INR is 2.72. IMPRESSION AND PLAN: Cellulitis of both lower extremity; history of thromboembolic disease with deep venous thrombosis; also has pulmonary embolism; may have sleep apnea syndrome; hypertension; migraine headaches; cardiac diastolic dysfunction, which is mild; pulmonary hypertension. From pulmonary point of view, she is doing okay, continue bronchodilators, sleep apnea precaution. Spoke to family, also spoke to nursing staff. She should be completing her antibiotics by tomorrow. Discharge planning. Thank you and we will follow with you. Roman Hahn MD [facility] # [id number]
[2017-01-13] MEDS: POLYETHYLENE GLYCOL 3350 17 GM/Dose PACKET PO SCH (10:44)
[2017-01-13 11:07] VITALS: BP 121/70
--- NOTE | 2017-01-13 13:05 | CP.PCM.PN ---
Subjective - Date & Time of Evaluation Date of Evaluation: 01/13/17 Time of Evaluation: 13:00 - Subjective Subjective: Infectious Disease Follow Up: January 13, 2017 66 yo female with bilateral lower extremity erythema starting 3 days ago with episodes of chills. The patient has several hospitalizations over the past few years. No other symptoms given. Legs swelling with left worse than right. Erythema of the left worse than the right. Patient has a medical history of COPD, right eye blindness, history of pulmonary embolism, migraine, DVT, and HTN. The patient also mentions a history of excessive head sweating at night for the last few months. Still with erythema of the bilateral lower extremities. Improvement of the cellulitis on the left lower leg remains very slow but steady... it has mostly resolved at this point. Sign of chronic venous stasis on the left lower leg. Objective - Vital Signs/Intake and Output Vital Signs (last 24 hours): Temp Pulse Resp BP Pulse Ox 97.4 F L 81 18 121/70 98 01/12/17 16:00 01/12/17 16:00 01/12/17 16:00 01/13/17 11:00 01/12/17 16:00 - Medications Medications: Current Medications Acetaminophen (Tylenol 325mg Tab) 650 mg PO Q4H PRN; Protocol PRN Reason: Pain, Mild (1-3) Last Admin: 01/11/17 16:32 Dose: 650 mg Acetaminophen/Butalbital/Caffeine (Fioricet) 1 tab PO Q8H PRN; Protocol PRN Reason: Pain, moderate (4-7) Albuterol Sulfate (Albuterol 0.083% Inhal Mile (2.5 Mg/3 Ml) Ud) 2.5 mg INH [id number] KRISTYN PRN Reason: Protocol Last Admin: 01/13/17 07:12 Dose: 2.5 mg Alprazolam (Xanax) 0.5 mg PO BID KRISTYN PRN Reason: Protocol Last Admin: 01/13/17 10:49 Dose: 0.5 mg Amlodipine Besylate (Norvasc) 10 mg PO DAILY KRISTYN PRN Reason: Protocol Last Admin: 01/13/17 10:44 Dose: 10 mg Arformoterol Tartrate (Brovana) 15 mcg IH [id number] KRISTYN PRN Reason: Protocol Last Admin: 01/13/17 07:10 Dose: 15 mcg Atorvastatin Calcium (Lipitor) 10 mg PO DIN KRISTYN PRN Reason: Protocol Last Admin: 01/12/17 18:40 Dose: 10 mg Budesonide (Pulmicort Respules) 0.5 mg IH [id number] KRISTYN PRN Reason: Protocol Last Admin: 01/13/17 07:11 Dose: 0.5 mg Docusate Sodium (Colace) 100 mg PO BID KRISTYN PRN Reason: Protocol Last Admin: 01/13/17 10:41 Dose: 100 mg Duloxetine HCl (Cymbalta) 90 mg PO DAILY KRISTYN PRN Reason: Protocol Last Admin: 01/13/17 10:41 Dose: 90 mg Famotidine (Pepcid) 40 mg PO HS KRISTYN PRN Reason: Protocol Last Admin: 01/12/17 21:55 Dose: 40 mg Furosemide (Lasix) 20 mg IVP DAILY KRISTYN PRN Reason: Protocol Last Admin: 01/13/17 11:00 Dose: 20 mg Home Med (Home Med) 1 unit PO HS KRISTYN PRN Reason: Protocol Last Admin: 01/13/17 00:57 Dose: Not Given Hydromorphone HCl (Dilaudid) 0.5 mg IVP Q4H PRN; Protocol PRN Reason: Pain, moderate (4-7) Last Admin: 01/12/17 18:38 Dose: 0.5 mg Piperacillin Sod/Tazobactam Sod (Zosyn 3.375 In Ns 100ml) 100 mls @ 200 mls/hr IVPB 0600,1200,1800,0000 KRISTYN PRN Reason: Protocol Stop: 01/13/17 14:00 Last Admin: 01/13/17 12:16 Dose: 200 mls/hr Lisinopril (Zestril) 40 mg PO DAILY KRISTYN PRN Reason: Protocol Last Admin: 01/13/17 10:49 Dose: 40 mg Mupirocin (Bactroban Ointment) 0 gm TOP BID KRISTYN PRN Reason: Protocol Last Admin: 01/13/17 12:15 Dose: 1 applic Pantoprazole Sodium (Protonix Ec Tab) 40 mg PO 0600 KRISTYN PRN Reason: Protocol Last Admin: 01/13/17 06:00 Dose: 40 mg Polyethylene Glycol (Miralax) 17 gm PO DAILY KRISTYN PRN Reason: Protocol Last Admin: 01/13/17 10:44 Dose: Not Given Topiramate (Topamax) 100 mg PO BID KRISTYN PRN Reason: Protocol Last Admin: 01/13/17 10:45 Dose: 100 mg Warfarin Sodium (Coumadin) 4 mg PO 1800 KRISTYN PRN Reason: Protocol Last Admin: 01/12/17 18:39 Dose: 4 mg - Labs Labs: 01/06/17 05:45 PT 29.0 SECONDS (9.4-12.5) H 01/13/17 06:00 INR 2.59 (0.93-1.08) H 01/13/17 06:00 - Constitutional Appears: Non-toxic, No Acute Distress, Chronically Ill - Head Exam Head Exam: ATRAUMATIC, NORMOCEPHALIC - Eye Exam Eye Exam: EOMI, PERRL Pupil Exam: NORMAL ACCOMODATION, PERRL - ENT Exam ENT Exam: Mucous Membranes Moist, Normal External Ear Exam, TM's Normal Bilaterally - Neck Exam Neck Exam: Full ROM, Normal Inspection - Respiratory Exam Respiratory Exam: Clear to Ausculation Bilateral, NORMAL BREATHING PATTERN. absent: Rales, Rhonchi, Wheezes - Cardiovascular Exam Cardiovascular Exam: REGULAR RHYTHM, RRR, +S1, +S2 - GI/Abdominal Exam GI & Abdominal Exam: Soft, Normal Bowel Sounds - Extremities Exam Extremities Exam: Joint Swelling, Pedal Edema Additional comments: increased warmth and swelling to the bilateral lower extremities. Left worse than right. +2 edema. moderate improvement in left lower leg from the past 4 days. - Neurological Exam Neurological Exam: Alert, Awake, CN II-XII Intact, Oriented x3 - Psychiatric Exam Psychiatric exam: Normal Affect, Normal Mood - Skin Skin Exam: Intact Additional comments: As above Assessment and Plan - Assessment and Plan (Free Text) Assessment: 66 yo female with presentation of erythema and swelling of the bilateral lower legs. The patient denies fevers and chills. Currently received IV Vancomycin and Zosyn in the ER. The patient has no allergies to antibiotics. Supportive care. No leukocytosis. Signs of chronic venous stasis especially in the left lower leg. ESR of 20 and C-Reactive protein of 5.22. Cellulitis of the lower legs is mild to moderate with the left being worse than the right lower leg. Continue IV Vancomycin and Zosyn for now. Looking to complete 10-14 day course. Improvement to left lower leg continues to be very slow but steady. It is mostly resolved at this point. Possible discharge today. Thank you for allowing me to participate in the care of the patient, we will follow with you.
--- NOTE | 2017-01-13 19:47 | PN ---
PULMONARY PROGRESS NOTE DATE: 01/13/2017 REFERRING PHYSICIAN: Dr. Rajput. SUBJECTIVE: He is sitting on the side of the bed and will be discharged home today. Feels better. Decreased erythema of lower extremity. Decreased swelling. Daytime sleepy and tired. Short of breath with exertion. No nausea, no vomiting, no diarrhea. PHYSICAL EXAMINATION GENERAL: In no acute distress. VITAL SIGNS: Temperature is 98, heart rate is 81, respiratory rate is 18, blood pressure 121/70, pulse ox 98% on room air. HEENT: Moist mucous membranes and crowded airway. Mallampati score is IV. NECK: Supple. No JVD. LUNGS: Has a fair airflow with a few rhonchi. HEART: S1 and S2. ABDOMEN: Soft and nontender. No organomegaly. EXTREMITIES: Decreased erythema and edema. NEUROLOGIC: Awake and alert. Follows simple commands. MEDICATIONS: Reviewed, no new changes in medications reported since yesterday. LABORATORY DATA: Reviewed and noted. INR today 2.59. Microbiology: There is no culture available. ASSESSMENT AND PLAN: Cellulitis of both lower extremities; history of deep venous thrombosis; history of pulmonary embolism; may have sleep apnea syndrome; hypertension; migraine headaches; cardiac diastolic dysfunction, which is mild; pulmonary hypertension. Spoke to patient in detail. I spoke about sleep apnea and its consequences. Recommended her to follow up with me in the office. Also, need PFT to ensure the stability of her lung function and evaluating diffusion because of pulmonary embolism. Thank you and we will follow with you. Roamn Hahn MD
--- NOTE | 2017-01-15 09:23 | DS ---
CHIEF COMPLAINT: Swelling of the legs. HISTORY OF PRESENT ILLNESS: Ms. Andreas Quick is a 66-year-old lady, was admitted on the medical side for the swelling of the leg. Got treatment. Got little bit better. The patient was seen by the ID, was complaining of shortness of breath and exacerbation of asthma, was treated by Dr. Hahn, technician assistant critical care. The patient got better then transferred for TCU for the continuity of care for , IV antibiotics and physical therapy. On 01/13/2017, she improved, discharged home with p.o. home medications. Followup with primary care physician and ID. PAST MEDICAL HISTORY: As above, COPD, asthma, obesity, history of cellulitis, and anxiety. ALLERGIES: THE PATIENT IS ALLERGIC WITH KETOROLAC. SOCIAL HISTORY: History of smoking, but quit. Denies alcohol. No substance abuse. FAMILY HISTORY: Father and mother noncontributory. REVIEW OF SYSTEMS: The patient was seen and examined at the bedside. Looking comfortable. No nausea, vomiting, or diarrhea. No hematuria. No hematochezia. Swelling of the leg is getting better. erythema of lower extremities. Decreased swelling. Shortness of breath is improving, but still getting on exertion. No fever. No chills. No nausea or vomiting. PHYSICAL EXAMINATION: VITAL SIGNS: Temperature is 98, heart rate 81, respiratory rate 18, blood pressure 120/70, and pulse oximetry 98% on room air. HEENT: Head is normocephalic and atraumatic. Eyes, PERRLA. Extraocular muscles intact. Conjunctivae clear. Nose is patent. Mucous membranes moist. NECK: Supple. No carotid bruits. No JVD or thyromegaly. CHEST: Bilaterally symmetrical. HEART: S1 and S2 positive. LUNGS: Clear to auscultation. ABDOMEN: Soft. Bowel sounds present. No organomegaly. EXTREMITIES: Trace edema, trace redness, and trace tenderness; otherwise, improved a lot. NEUROLOGIC: The patient is awake and alert. Moving all 4 extremities. Cranial nerves II through XII grossly intact. LABORATORY DATA: White blood cell is 4.6, hemoglobin 11.3, hematocrit 35.8, and platelets 196. INR is 2.59, and PT 29.; ASSESSMENT AND PLAN: Ms. Andreas Quick is a 66-year-old lady with cellulitis of lower extremities. Got intravenous antibiotics. History of thromboembolic disease with deep vein thrombosis. History of pulmonary emboli, sleep apnea syndrome, hypertension, history of migraine getting fiorecet for that, diastolic dysfunction, which is mild, pulmonary hypertension, the patient improved a lot. New sleep apnea precautions, spoke with the patient's family by myself and Dr. Hahn. Completed the course of antibiotics. Received vancomycin and Zosyn in the emergency room. History of chronic venostasis especially in the left lower legs. C-reactive protein is 5.22. cellulitis of the lower leg is mild to moderate with left being worse than the right leg. Completed course of vancomycin and Zosyn, completed course of 10 to 14 days. Discharged home on 01/13/2017 with followup primary care physician and Infectious Disease. We will follow up. Lucy Rajput MD MTDD
== END 2017-01-13 16:08 | disposition home or self-care (01) | DRG 603 ==
LOC: TRCU 13:48
PROVIDERS: ADMIT Internal Medicine; ATTEND Internal Medicine
PROC: F07Z9ZZ Gait Training/Functional Ambulation Treatment (ICD-10-PCS; principal; 2017-01-05)
PROC: 3E0F7GC Introduction of Other Therapeutic Substance into Respiratory Tract, Via Natural or Artificial Opening (ICD-10-PCS; 2017-01-05)
PROC: F08Z4ZZ Home Management Treatment (ICD-10-PCS; 2017-01-06)
DX: L03.116 Cellulitis of left lower limb (principal); I48.91 Unspecified atrial fibrillation; I27.20 Pulmonary hypertension, unspecified; I10 Essential (primary) hypertension; L03.115 Cellulitis of right lower limb; Z79.2 Long term (current) use of antibiotics; J44.9 Chronic obstructive pulmonary disease, unspecified; E78.5 Hyperlipidemia, unspecified; G43.909 Migraine, unspecified, not intractable, without status migrainosus; R21 Rash and other nonspecific skin eruption; F41.9 Anxiety disorder, unspecified; K27.9 Peptic ulcer, site unspecified, unspecified as acute or chronic, without hemorrhage or perforation; M17.12 Unilateral primary osteoarthritis, left knee; Z96.652 Presence of left artificial knee joint; G47.30 Sleep apnea, unspecified; E66.9 Obesity, unspecified; D64.9 Anemia, unspecified; H54.61 Unqualified visual loss, right eye, normal vision left eye; Z86.711 Personal history of pulmonary embolism; Z86.718 Personal history of other venous thrombosis and embolism; Z79.01 Long term (current) use of anticoagulants; Z87.891 Personal history of nicotine dependence

== ENCOUNTER 2017-02-18 14:42 | Inpatient (IN) | payer MEDICARE, MEDICAID, OTHER ==
[2017-02-18 15:07] VITALS: BMI 37.5
[2017-02-18] MEDS ORDERED: Albuterol-Ipratrop 3 mg / 0.5 (3 ml) UD IH STA (15:09)
--- NOTE | 2017-02-18 15:21 | ED PDOC ---
Arrival/HPI - General Chief Complaint: Respiratory Distress Time Seen by Provider: 02/18/17 15:06 Historian: Patient - History of Present Illness Narrative History of Present Illness (Text): 02/18/17 15:02 A 66 year old female, whose past medical history includes COPD, hypertension, migraine, PE, and asthma, presents to the emergency department complaining of cough, congestion, URI, wheezing, and shortness of breath for 3-4 days. Patient reports having productive yellowish sputum, chills, and states feeling feverish. Patient denies of any chest pain, back pain, or any other complaints. Also, patient has distant history of smoking and occasionally drinks. PMD: Dr. Luz Marina Dean Associated Symptoms (Text): 02/18/17 15:37 Several day history of cough congestion URI wheezing and shortness of breath feeling feverish with chills. She ran out of the medication for her nebulizer. No recent steroids. Past Medical History - Provider Review Nursing Documentation Reviewed: Yes - Infectious Disease Hx of Infectious Diseases: None - Tetanus Immunization Tetanus Immunization: Unknown - Cardiac Hx Hypertension: Yes - Pulmonary Hx Chronic Obstructive Pulmonary Disease (COPD): Yes Hx Pulmonary Embolism: Yes - Neurological Hx Neurological Disorder: Yes Hx Migraine: Yes - HEENT Hx HEENT Disorder: Yes Hx Blind: Yes (partial vision right eye, 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 wears glasses - Renal Hx Renal Disorder: No - Endocrine/Metabolic Hx Endocrine Disorders: No - Hematological/Oncological Hx Blood Disorders: No - Integumentary Hx Dermatological Disorder: No - Musculoskeletal/Rheumatological Hx Falls: Yes - Gastrointestinal Hx Gastrointestinal Disorders: Yes (CONSTIPATION,GASTRITIS) - Genitourinary/Gynecological Hx Genitourinary Disorders: No Hx Reproductive Disorders: No - Psychiatric Hx Psychophysiologic Disorder: Yes Hx Anxiety: Yes Hx Emotional Abuse: (pt. stated no) Hx Physical Abuse: (pt stated no) Hx Substance Use: No - Surgical History Hx Joint Replacement: Yes (left knee) Other/Comment: colonoscopy S/p LTKR 07/12/2014 - Anesthesia Hx Anesthesia: Yes Hx Anesthesia Reactions: Yes (nausea) Hx Malignant Hyperthermia: No - Suicidal Assessment Feels Threatened In Home Enviroment: No Family/Social History - Physician Review Nursing Documentation Reviewed: Yes Family/Social History: No Known Family HX Smoking Status: Former Smoker Hx Alcohol Use: No Hx Substance Use: No Hx Substance Use Treatment: No Allergies/Home Meds Allergies/Adverse Reactions: Allergies ketorolac Allergy (Verified 02/18/17 15:16) SHORTNESS OF BREATH Home Medications: Home Meds Medication Instructions Recorded Confirmed Warfarin [Coumadin] 4 mg PO DAILY 02/18/17 02/18/17 Review of Systems - Physician Review All systems were reviewed & negative as marked: Yes - Review of Systems Constitutional: Fevers, Night Sweats ENT: Sinus Congestion Respiratory: SOB, Cough, Sputum (yellowish), Wheezing Cardiovascular: absent: Chest Pain Gastrointestinal: absent: Abdominal Pain, Nausea, Vomiting Musculoskeletal: absent: Back Pain Neurological: absent: Headache, Dizziness Physical Exam Vital Signs Reviewed: Yes Vital Signs Temp Pulse Resp BP Pulse Ox 02/18/17 15:31 17 100 02/18/17 15:13 99.3 F 100 H 18 146/77 94 L Temperature: Afebrile Blood Pressure: Normal Pulse: Regular Respiratory Rate: Normal Appearance: Positive for: Well-Appearing, Uncomfortable Pain Distress: None Mental Status: Positive for: Alert and Oriented X 3 - Systems Exam Head: Present: Atraumatic, Normocephalic Pupils: Present: PERRL Extroacular Muscles: Present: EOMI Conjunctiva: Present: Normal Mouth: Present: Moist Mucous Membranes Pharnyx: Present: Normal Nose (Internal): Present: Other (congestion) Neck: Present: Normal Range of Motion Respiratory/Chest: Present: Wheezes (bilaterally), Decreased Breath Sounds, Retracting (bilaterally), Rhonchi. No: Respiratory Distress, Accessory Muscle Use, Rales, Tachypneic, Other (no retractions) Cardiovascular: Present: Regular Rate and Rhythm, Normal S1, S2. No: Murmurs Abdomen: Present: Normal Bowel Sounds. No: Tenderness, Distention, Peritoneal Signs Back: Present: Normal Inspection Upper Extremity: Present: Normal Inspection. No: Cyanosis, Edema Lower Extremity: Present: Normal Inspection. No: Edema Neurological: Present: GCS=15, CN II-XII Intact, Speech Normal, Motor Func Grossly Intact Skin: Present: Warm, Dry, Normal Color. No: Rashes Psychiatric: Present: Alert, Oriented x 3, Normal Insight, Normal Concentration Medical Decision Making ED Course and Treatment: 02/18/17 15:07 Impression: 66 year old female with cough, congestion, URI, wheezing, and shortness of breath. physical exam shows nose is congest; wheezing and rhonchi bilaterally; everything else is normal. Plan: -- EKG -- Chest X-ray -- Labs -- Duoneb -- Serology -- Reassess and disposition Prior Visits: Notes and results from previous visits were reviewed. Patient was last seen in the emergency department on 01/02/2017 for b/l lower extremities redness. Patient was admitted. Progress Notes: 02/18/2017 15:24 Chest X-ray IMPRESSION: No active disease. Dictator: Owen Kaba MD 02/18/17 15:39 EKG shows normal sinus rhythm rate approximately 100 with poor R-wave progression and Q waves inferiorly and no acute ST or T-wave changes 02/18/17 16:42 Continues to wheeze with rhonchi. Additional albuterol ordered. Arrangements will be made for hospital observation. - Lab Interpretations Lab Results: 02/18/17 15:25 02/18/17 15:25 Lab Results 02/18/17 15:25: Influenza Typ A,B (EIA) Negative for flu a/b 02/18/17 15:25: Sodium 140, Potassium 4.3, Chloride 107, Carbon Dioxide 20 L, Anion Gap 17, BUN 27 H, Creatinine 0.8, Est GFR ( Amer) > 60, Est GFR ( Non-Af Amer) > 60, Random Glucose 99, Calcium 9.1, Total Bilirubin 0.7, AST 26, ALT 29, Alkaline Phosphatase 100, Lactate Dehydrogenase 757 H, Total Creatine Kinase 224, Troponin I < 0.01, Total Protein 6.8, Albumin 4.0, Globulin 2.9, Albumin/Globulin Ratio 1.4 02/18/17 15:25: PT 15.8 H, INR 1.44 H, APTT 32.2 02/18/17 15:25: WBC 11.8 H D, RBC 4.52, Hgb 13.5 D, Hct 40.8, MCV 90.3, MCH 29.9, MCHC 33.1, RDW 16.0 H, Plt Count 173, MPV 10.8, Gran % 81.8 H, Lymph % ( Auto) 8.1 L, [place] % (Auto) 9.5 H, Eos % (Auto) 0.4 L, Baso % (Auto) 0.2, Gran # 9.67 H, Lymph # 1.0 L, [place] # 1.1 H, Eos # 0.1, Baso # 0.02 I have reviewed the lab results: Yes - RAD Interpretation Radiology Orders: 02/18/17 15:08 CHEST PORTABLE [RAD] Stat Chest 1 view shows no infiltrate effusion or cardiomegaly Ear Muff Assembler: Radiologist - Medication Orders Current Medication Orders: Discontinued Medications Albuterol Sulfate (Albuterol 0.5% Inhal Mile (5 Mg/ Ml) 20 Ml) 2.5 mg IH ONCE STA Stop: 02/18/17 15:56 Last Admin: 02/18/17 16:26 Dose: 2.5 mg Albuterol Sulfate (Albuterol 0.5% Inhal Mile (5 Mg/ Ml) 20 Ml) 2.5 mg IH ONCE STA Stop: 02/18/17 16:43 Albuterol/Ipratropium (Duoneb 3 Mg/0.5 Mg (3 Ml) Ud) 3 ml IH ONCE STA Stop: 02/18/17 15:10 Last Admin: 02/18/17 15:27 Dose: 3 ml Ceftriaxone Sodium 1 gm/ (Dextrose) 100 mls @ 200 mls/hr IVPB STAT STA PRN Reason: Protocol Stop: 02/18/17 16:28 Last Admin: 02/18/17 16:19 Dose: 200 mls/hr eMAR Start Stop Document 02/18/17 16:19 SE (Rec: 02/18/17 16:19 [id number]) Intravenous Solution Start Date 02/18/17 Start Time 16:19 Methylprednisolone (Solu-Medrol) 125 mg IVP ONCE ONE Stop: 02/18/17 15:56 Last Admin: 02/18/17 16:19 Dose: 125 mg IVP Administration Document 02/18/17 16:19 SE (Rec: 02/18/17 16:19 SE [id number]) Charges for Administration # of IVP Administrations 1 - Scribe Statement The provider has reviewed the documentation as recorded by the Murrayibe Stacey Houser Provider Scribe Attestation: All medical record entries made by the Scribe were at my direction and personally dictated by me. I have reviewed the chart and agree that the record accurately reflects my personal performance of the history, physical exam, medical decision making, and the department course for this patient. I have also personally directed, reviewed, and agree with the discharge instructions and disposition. Disposition/Present on Arrival - Present on Arrival Any Indicators Present on Arrival: No History of DVT/PE: No History of Uncontrolled Diabetes: No Urinary Catheter: No History of Decub. Ulcer: No History Surgical Site Infection Following: None - Disposition Have Diagnosis and Disposition been Completed?: Yes Diagnosis: COPD (chronic obstructive pulmonary disease), Asthmatic bronchitis, Dyspnea Disposition: HOSPITALIZED Disposition Time: 16:45 Patient Plan: Observation Condition: FAIR Referrals: Luz Marina Dean MD [Primary Care Provider] - Follow up with primary Forms: [employer] (N[place]ian)
--- NOTE | 2017-02-18 15:26 | RAD ---
HISTORY: sob COMPARISON: 01/02/2017 FINDINGS: LUNGS: No active pulmonary disease. PLEURA: No significant pleural effusion identified, no pneumothorax apparent. CARDIOVASCULAR: Normal. OSSEOUS STRUCTURES: No significant abnormalities. VISUALIZED UPPER ABDOMEN: Normal. OTHER FINDINGS: None. IMPRESSION: No active disease.
[2017-02-18 15:43] LABS: BASO # 0.02 K/mm3 (0.0-2.0); BASO % 0.2 % (0.0-3.0); EOS # 0.1 (0.0-0.7); EOS % 0.4 % (1.5-5.0); GRAN # 9.67 (1.4-6.5); GRAN % 81.8 % (50.0-68.0); HEMATOCRIT 40.8 % (36.0-48.0); LYMPH % 8.1 % (22.0-35.0); MEAN CELL VOLUME 90.3 fl (80.0-105.0); MEAN CORPUSCULAR HEMOGLOBIN 29.9 pg (25.0-35.0); MEAN CORPUSCULAR HGB CONC 33.1 g/dl (31.0-37.0); MEAN PLATELET VOLUME 10.8 fl (7.0-11.0); MONO # 1.1 (0.1-0.6); MONO % 9.5 % (1.0-6.0); WHITE BLOOD COUNT 11.8 10^3/ul (4.5-11.0)
[2017-02-18] MEDS ORDERED: Albuterol 0.5% Inhal Sol (5 mg/ ml) 20 ml IH STA ×2 (15:55→16:42)
[2017-02-18 15:56] LABS: INR 1.44 (0.93-1.08); PARTIAL THROMBOPLASTIN TIME 32.2 Seconds (25.1-36.5)
[2017-02-18] MEDS ORDERED: cefTRIAXone 1 gm 1 GM/100 ML BAG IVPB STA (15:56)
[2017-02-18 16:07] LABS: TROPONIN I < 0.01 ng/mL
[2017-02-18 16:11] LABS: ALB/GLOB RATIO 1.4 (1.1-1.8); ALKALINE PHOSPHATASE 100 U/L (38-126); ALT/SGPT 29 U/L (7-56); AST/SGOT 26 U/L (14-36); BILIRUBIN,TOTAL 0.7 mg/dL (0.2-1.3); BLOOD UREA NITROGEN 27 mg/dL (7-21); CALCIUM 9.1 mg/dL (8.4-10.5); CARBON DIOXIDE 20 mmol/L (21-33); CHLORIDE 107 mmol/L (98-107); GFR AFRICAN-AMERICAN > 60; GLUCOSE,RANDOM 99 mg/dL (70-110); POTASSIUM 4.3 mmol/L (3.6-5.0); SODIUM 140 mmol/L (132-148); TOTAL PROTEIN 6.8 g/dL (5.8-8.3)
[2017-02-18] MEDS ORDERED: Albuterol-Ipratrop 3 mg / 0.5 (3 ml) UD IH PRN (18:43)
[2017-02-18] MEDS ORDERED: Albuterol-Ipratrop 3 mg / 0.5 (3 ml) UD IH SCH (20:00)
[2017-02-18] MEDS: Levalbuterol 1.25 MG/3 ML Inhal Soln UD IH SCH (21:21)
[2017-02-18] MEDS: MethylPREDNISolone 40 mg Vial IV SCH (21:32)
--- NOTE | 2017-02-19 01:55 | HP ---
HISTORY OF PRESENT ILLNESS: The patient is a 66-year-old, came to the emergency room because of increasing cough, congestion, and shortness of breath. She had some fever and productive cough at home, but shortness of breath and wheezing got worse, so she came to emergency room. PAST MEDICAL HISTORY: Significant for: 1. COPD. 2. 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 3. History of pulmonary embolism. 4. Migraine headache. 5. DVT. 6. Hypertension. ALLERGIES: SHE IS ALLERGIC TO KETOROLAC. MEDICATIONS AT HOME: She is on Coumadin 4 mg daily. SOCIAL HISTORY: She used to be heavy smoker in the past. PHYSICAL EXAMINATION: GENERAL: She is awake, alert, oriented, short of breath and wheezing. VITAL SIGNS: She has a temperature of 99.3, pulse 100, respirations 18, and blood pressure 130/76. LUNGS: Bilateral expiratory rhonchi. HEART: S1 and S2 audible. ABDOMEN: Soft and nontender. No rebound. No guarding. NEUROLOGIC: The patient is awake, alert, and able to communicate. LABORATORY DATA: WBC 11.8, hemoglobin 13.5, hematocrit 40.8, and platelets of 173. PT 15.8 and INR 1.44. Chemistry: Sodium 140, potassium 4.3, chloride 107, CO2 of 20, BUN 27, creatinine 0.8, and blood sugar of 99. Flu test is negative. She had x-ray of chest done that shows no active disease. ASSESSMENT: 1. Asthma exacerbation. 2. Persistent cough. 3. History of pulmonary embolism. 4. History of hypertension. PLAN: We will order for CT scan of the chest. We will give her nebulizer treatment and give her IV antibiotics. I will continue her on Coumadin. Follow up PT/INR in a.m. Kirsty Heredia MD
[2017-02-19] MEDS ORDERED: Pneumococcal 23-Valent Vaccine IM ONE (02:20)
[2017-02-19] MEDS: Levalbuterol 1.25 MG/3 ML Inhal Soln UD IH SCH ×4 (02:28→20:57)
[2017-02-19] MEDS: MethylPREDNISolone 40 mg Vial IV SCH ×3 (06:19→22:16)
[2017-02-19] MEDS: Pantoprazole 40 mg EC Tab PO SCH (07:35)
[2017-02-19 07:48] LABS: BASO # 0.01 K/mm3 (0.0-2.0); BASO % 0.1 % (0.0-3.0); GRAN # 7.58 (1.4-6.5); GRAN % 85.2 % (50.0-68.0); HEMATOCRIT 40.7 % (36.0-48.0); LYMPH % 10.7 % (22.0-35.0); MEAN CELL VOLUME 89.5 fl (80.0-105.0); MEAN CORPUSCULAR HEMOGLOBIN 29.2 pg (25.0-35.0); MEAN CORPUSCULAR HGB CONC 32.7 g/dl (31.0-37.0); MEAN PLATELET VOLUME 11.3 fl (7.0-11.0); MONO # 0.4 (0.1-0.6); RED CELL DISTRIBUTION WIDTH 15.8 % (11.5-14.5); WHITE BLOOD COUNT 8.9 10^3/ul (4.5-11.0)
[2017-02-19 08:02] LABS: INR 1.36 (0.93-1.08)
[2017-02-19 09:12] LABS: ALB/GLOB RATIO 1.1 (1.1-1.8); ALKALINE PHOSPHATASE 90 U/L (38-126); ALT/SGPT 28 U/L (7-56); AST/SGOT 28 U/L (14-36); BILIRUBIN,TOTAL 0.5 mg/dL (0.2-1.3); BLOOD UREA NITROGEN 28 mg/dL (7-21); CALCIUM 9.2 mg/dL (8.4-10.5); CARBON DIOXIDE 22 mmol/L (21-33); CHLORIDE 108 mmol/L (98-107); GFR AFRICAN-AMERICAN > 60; GLUCOSE,RANDOM 123 mg/dL (70-110); POTASSIUM 4.8 mmol/L (3.6-5.0); SODIUM 140 mmol/L (132-148); TOTAL PROTEIN 7.6 g/dL (5.8-8.3)
[2017-02-19] MEDS: cefTRIAXone 1 gm 1 GM/100 ML BAG IVPB SCH (09:45)
[2017-02-19] MEDS ORDERED: cefTRIAXone 1 gm 1 GM/100 ML BAG IVPB SCH (10:00)
[2017-02-19] MEDS: Azithromycin 500MG/NS 250ml 500 MG/250 ML BAG IVPB SCH (11:42)
[2017-02-19] MEDS ORDERED: Iohexol 350 MG/100 ML VIAL ONE (12:03)
--- NOTE | 2017-02-19 14:06 | CT ---
PROCEDURE: CT Chest with contrast HISTORY: shortness of breath COMPARISON: None. TECHNIQUE: Contiguous axial images were obtained through the chest with intravenous contrast enhancement. Sagittal and coronal reconstructions were performed. IV contrast: 100 cc of Omni 350 Radiation dose (DLP): 571 mGy-cm. This CT exam was performed using one or more of the following dose reduction techniques: Automated exposure control, adjustment of the mA and/or kV according to patient size, and/or use of iterative reconstruction technique. FINDINGS: LUNGS: Clear lungs. Visualized airway clear. MEDIASTINUM: Unremarkable thoracic aorta. No aneurysm or dissection. Normal sized heart. Main pulmonary artery unremarkable. No vascular congestion. No lymphadenopathy. PLEURA: No pleural fluid. No pneumothorax. BONES: No fracture. No destructive lesion. UPPER ABDOMEN: Grossly unremarkable. OTHER FINDINGS: None. IMPRESSION: Unremarkable contrast enhanced CT of the chest.
--- NOTE | 2017-02-19 20:09 | CARD ---
APPROVED REPORT EKG Measurement Heart [id number] <Conclusion> Sinus tachycardia Cannot rule out Inferior infarct, age undetermined Cannot rule out Anterior infarct, age undetermined Abnormal ECG
--- NOTE | 2017-02-19 23:19 | PN ---
DATE: SUBJECTIVE: The patient is a 66-year-old, seen and examined, sleepy, but arousable, complained of cough, congestion and wheezing. No fever or chills. PHYSICAL EXAMINATION: VITAL SIGNS: She is afebrile, pulse is 76, respirations are 22, and blood pressure is 119/56. LUNGS: Bilateral expiratory rhonchi. HEART: S1 and S2 audible. ABDOMEN: Soft and nontender. No rebound and no guarding. NEUROLOGIC: She is sleepy, but arousable. She states she could not sleep last night, so she is very tired. LABORATORY DATA: WBC is 8.9, hemoglobin is 13, hematocrit is 40, and platelets are 198. PT is 15.1 and INR is 1.36. Chemistry: Sodium is 140, potassium is 4.8, chloride is 108. CO2 is 22, BUN is 28, and creatinine is 0.8. Blood sugar is 123. Flu test is negative. DIAGNOSTIC DATA: She had CT scan of the chest done that shows unremarkable contrast enhanced. ASSESSMENT: 1. Asthma exacerbation. 2. Bronchospasm. 3. Hypertension. 4. Hyperlipidemia. 5. History of migraine headaches. PLAN: Currently, the patient is on IV steroids. She is on Protonix and she is on IV Rocephin and Zithromax. We will give her methylprednisolone 40 mg q. 8 hours and we will reevaluate the patient in the a.m. Kirsty Heredia MD
[2017-02-20] MEDS: Levalbuterol 1.25 MG/3 ML Inhal Soln UD IH SCH ×4 (01:37→20:55)
[2017-02-20] MEDS: Pantoprazole 40 mg EC Tab PO SCH (05:29)
[2017-02-20] MEDS: MethylPREDNISolone 40 mg Vial IV SCH ×3 (05:29→22:20)
[2017-02-20] MEDS: Enoxaparin 40 mg Syringe SC SCH (09:15)
[2017-02-20] MEDS: Azithromycin 500MG/NS 250ml 500 MG/250 ML BAG IVPB SCH (09:39)
[2017-02-20] MEDS: cefTRIAXone 1 gm 1 GM/100 ML BAG IVPB SCH (09:39)
[2017-02-20 11:03] LABS: INR 1.73 (0.93-1.08)
--- NOTE | 2017-02-20 22:28 | PN ---
DATE: SUBJECTIVE: The patient is a 66-year-old, seen and examined, still has cough, congestion and wheezing. Feel very anxious and nervous. PHYSICAL EXAMINATION VITAL SIGNS: She is afebrile, pulse is 60, respirations are 18, and blood pressure is 118/76. HEART: S1 and S2 audible. ABDOMEN: Soft and nontender. No rebound and no guarding. NEUROLOGIC: She is awake, alert, oriented, communicative. LABORATORY DATA: WBC is 8.9, hemoglobin is 13, hematocrit is 40, and platelets are 198. Chemistry: Sodium is 140, potassium is 4.8, chloride is 108. CO2 is 22, BUN is 28, and creatinine is 0.8. Blood sugar is 123. Flu test is negative. ASSESSMENT: 1. Asthma exacerbation. 2. Dense bronchospasm. 3. Asthmatic bronchitis. 4. History of pulmonary embolism. 5. Migraine headache. 6. Hypertension. 7. Anxiety disorder. PLAN: Currently, the patient is on Coumadin 6 mg. Today, she is requesting for sleeping pill. We will give her zolpidem 5 mg at bedtime. She usually takes Cymbalta 90 at home. We will increase that too. We will continue on Rocephin. Continue on IV steroids. We will follow up this patient in a.m. Kirsty Heredia MD
[2017-02-21] MEDS: Levalbuterol 1.25 MG/3 ML Inhal Soln UD IH SCH ×4 (01:14→19:57)
[2017-02-21] MEDS: Pantoprazole 40 mg EC Tab PO SCH (05:51)
[2017-02-21] MEDS: MethylPREDNISolone 40 mg Vial IV SCH ×3 (05:51→21:07)
[2017-02-21 07:38] LABS: HEMATOCRIT 37.1 % (36.0-48.0); MEAN CELL VOLUME 88.8 fl (80.0-105.0); MEAN CORPUSCULAR HEMOGLOBIN 28.7 pg (25.0-35.0); MEAN CORPUSCULAR HGB CONC 32.3 g/dl (31.0-37.0); MEAN PLATELET VOLUME 10.9 fl (7.0-11.0); RED CELL DISTRIBUTION WIDTH 15.7 % (11.5-14.5); WHITE BLOOD COUNT 9.5 10^3/ul (4.5-11.0)
[2017-02-21 07:52] LABS: INR 2.64 (0.93-1.08)
[2017-02-21 09:21] LABS: BLOOD UREA NITROGEN 19 mg/dL (7-21); CALCIUM 9.2 mg/dL (8.4-10.5); CARBON DIOXIDE 27 mmol/L (21-33); CHLORIDE 108 mmol/L (98-107); GFR AFRICAN-AMERICAN > 60; GLUCOSE,RANDOM 105 mg/dL (70-110); POTASSIUM 4.4 mmol/L (3.6-5.0); SODIUM 142 mmol/L (132-148)
[2017-02-21] MEDS: Enoxaparin 40 mg Syringe SC SCH (10:37)
[2017-02-21] MEDS: cefTRIAXone 1 gm 1 GM/100 ML BAG IVPB SCH (10:38)
--- NOTE | 2017-02-21 18:46 | PN ---
DATE: SUBJECTIVE: The patient is a 66-year-old, seen and examined, still has cough and congestion, also complain of feeling anxious. Denies any nausea or vomiting. No hemoptysis. PHYSICAL EXAMINATION VITAL SIGNS: She is afebrile, pulse is 73, respirations are 18, and blood pressure is 139/86. LUNGS: Bilateral soft crackles and expiratory rhonchi. HEART: S1 and S2 audible. ABDOMEN: Soft and nontender. No rebound and no guarding. NEUROLOGIC: She is awake, alert, oriented, communicative. LABORATORY DATA: WBC is 9.5, hemoglobin is 12.0, hematocrit is 37, and platelets are 221. Her PT is 29.6, INR 2.64. Chemistry: Sodium is 142, potassium is 4.4, chloride is 108. CO2 is 27, BUN is 19, and creatinine is 0.7. Blood sugar is 105. She had CT scan of the chest done that is remarkable. ASSESSMENT: 1. Asthmatic bronchitis. 2. Bilateral coarse rhonchi and bronchospasm. 3. History of pulmonary embolism. 4. Anxiety disorder. 5. Hypertension. 6. Migraine headache. PLAN: Currently, the patient is on Coumadin and will give 4 mg today. She will continue her on usual anxiety medications. She is on Rocephin. She is on methylprednisolone 40 mg q. 8, request for Dr. Escamilla to evaluate the patient, out of bed to chair, Physical Therapy evaluation and treatment has been requested. Kirsty Heredia MD
[2017-02-22] MEDS: Levalbuterol 1.25 MG/3 ML Inhal Soln UD IH SCH ×4 (01:08→20:04)
[2017-02-22] MEDS: MethylPREDNISolone 40 mg Vial IV SCH (05:47)
[2017-02-22] MEDS: Pantoprazole 40 mg EC Tab PO SCH (05:47)
[2017-02-22] MEDS ORDERED: Levalbuterol 0.63 MG/3 ML Inhal Soln UD IH PRN (06:40)
[2017-02-22] MEDS: Budesonide 0.5 mg/2 ml Inhal Susp UD IH SCH ×2 (07:24→20:04)
--- NOTE | 2017-02-22 08:16 | CON ---
PULMONARY CONSULTATION DATE: 02/22/2017 REASON FOR CONSULTATION: Chronic obstructive pulmonary disease. REFERRING PHYSICIAN: Kirsty Heredia MD HISTORY OF PRESENT ILLNESS: The patient is a 66-year-old female, with past medical history significant for chronic obstructive pulmonary disease, positive former smoker, asthma, pulmonary embolism in the past, who presented to [facility] - originally on 02/18/2017 - with a 4-day history of worsening shortness of breath at rest, dyspnea on exertion, cough, and sputum production. There is no history of chest pain, coughing up of blood, or chest pain - made worse with deep respirations. The patient did state to feeling feverish at home. There were initially low grade temperatures(in the hospital)--resolved. No history of chills or infectious exposure. No history of night sweats, weight loss or appetite change prior to the above events. No history of leg or calf pains. No history of syncope or diaphoresis. No history of recent travel or trauma. REVIEW OF SYSTEMS: The patient does complain of a runny nose and congestion. No history of nausea, vomiting or diarrhea. No acute urinary symptoms. No new neurologic or musculoskeletal complaints. Rest of the review of systems is negative. ALLERGIES: KETOROLAC. SOCIAL HISTORY: Positive for former tobacco usage. Positive for social alcohol usage. FAMILY HISTORY: No inheritable diseases. HOME MEDICATIONS: Include Advair, Xanax, Norvasc, Zestril, Zocor, Topamax, Ventolin HFA, Coumadin and omeprazole. PHYSICAL EXAMINATION GENERAL: The patient appears comfortable this morning. She is not short of breath at rest. She is not using accessory muscles for breathing. VITAL SIGNS (last noted in the computer): Temperature is 98.4, pulse 83, respirations 18, blood pressure 142/79. Oxygen saturation on nasal cannula is 96-99%. HEENT: Normocephalic and atraumatic. No JVD. CARDIOVASCULAR: Positive S1, S2. No S3 gallop. LUNGS: Decreased breath sounds at the bases. Mild bilateral rhonchi and wheezing are appreciated. EXTREMITIES: Mild edema. No cyanosis or clubbing. Calves are nontender to palpation. GI: Abdomen is soft, nontender and nondistended. Bowel sounds are positive. SKIN: No acute rash. NEUROLOGIC: Exam limited at the present time. PERTINENT LABORATORY DATA: CAT scan of the chest was done on 02/19/2017 and reviewed. The lungs are clear. There is no lymphadenopathy. There is no mass or consolidation noted. CBC: White count 9.5, hemoglobin 12.0, hematocrit 37.1, platelets of 221. INR 2.64. Complete metabolic profile: Chloride 108. Rest of the metabolic profiles within normal limits. IMPRESSION: 1. Acute bronchitis. 2. Chronic obstructive pulmonary disease, positive former smoker. 3. Asthma. 4. Acute rhinitis. 5. Pulmonary embolism in the past. PLAN: The patient presented to [facility] - originally on 02/18/2017 - with a 4-day history of worsening pulmonary symptoms. In addition to the above, the patient also complains of a runny nose and nasal congestion. I did review the CAT scan of the chest. The CAT scan is clear, with no acute abnormalities. On physical exam, the patient is in [id number] bronchospasm. I will continue the current nebulizer treatments, and add inhaled Pulmicort this morning. I will also try decreasing the intravenous steroids. Lastly, I will add nasal steroids this morning. The patient does remain on antibiotic therapy. The low grade temperatures have now resolved. The leukocytosis has also resolved. Clinical status of the patient is significantly improved - compared to the initial presentation. I advised the patient to be out of bed as much as possible. She agrees. I will discuss the above with Dr. Heredia this morning. Thank you very much for this pulmonary consultation. Alok Escamilla MD MTDD
[2017-02-22] MEDS: Enoxaparin 40 mg Syringe SC SCH (09:06)
[2017-02-22] MEDS: MethylPREDNISolone 40 mg Vial IVP SCH ×2 (09:08→21:24)
[2017-02-22] MEDS: cefTRIAXone 1 gm 1 GM/100 ML BAG IVPB SCH (09:23)
[2017-02-22] MEDS: Fluticasone Nasal 50 mcg/Spray NS SCH (10:24)
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
[2017-02-22 19:58] VITALS: O2SAT 98
--- NOTE | 2017-02-22 21:49 | PN ---
DATE: SUBJECTIVE: The patient is a 66-year-old, seen and examined, sitting . She feels a little better. Less cough. Still has audible wheezing. PHYSICAL EXAMINATION: VITAL SIGNS: She is afebrile, pulse 60, respirations 20, and blood pressure 128/85. LUNGS: Bilateral expiratory rhonchi diffuse anteriorly and posteriorly. HEART: S1 and S2 audible. ABDOMEN: Soft. NEUROLOGIC: She is awake, alert, oriented, and communicative. LABORATORY DATA: PT is 29.6 and INR 2.64. She had CT scan of the chest done that is unremarkable. ASSESSMENT: 1. Chronic obstructive pulmonary disease exacerbation. 2. History of deep venous thrombosis and pulmonary embolism, on Coumadin seems to be therapeutic. 3. Asthmatic bronchitis. 4. Anxiety disorder. 5. Hypertension. PLAN: The patient is currently on IV steroid and nebulizer treatment. She will receive Coumadin 4 mg today. We will follow up PT/INR in a.m. I will discontinue Lovenox. Continue her on antibiotics. Follow up the patient in a.m. Kirsty Heredia MD
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
[2017-02-23] MEDS: Levalbuterol 1.25 MG/3 ML Inhal Soln UD IH SCH ×4 (01:52→20:53)
[2017-02-23] MEDS: Pantoprazole 40 mg EC Tab PO SCH (06:23)
[2017-02-23] MEDS: Budesonide 0.5 mg/2 ml Inhal Susp UD IH SCH ×2 (07:36→20:53)
[2017-02-23] MEDS: Fluticasone Nasal 50 mcg/Spray NS SCH (09:00)
[2017-02-23] MEDS: MethylPREDNISolone 40 mg Vial IVP SCH ×2 (09:28→22:05)
[2017-02-23] MEDS: cefTRIAXone 1 gm 1 GM/100 ML BAG IVPB SCH (09:29)
--- NOTE | 2017-02-23 11:39 | PN ---
DATE: 02/23/2017 PULMONARY PROGRESS NOTE SUBJECTIVE: The patient is improved today, feeling better, coughing less. No wheezing appreciated now, but she states she had wheezing earlier this morning. PHYSICAL EXAMINATION: VITAL SIGNS: Stable. Afebrile. Blood pressure 128/84, respiratory rate 18, pulse ox 98%. HEENT: Normocephalic and atraumatic. NECK: No JVD. No lymphadenopathy. No bruit. CARDIOVASCULAR: Regular rhythm. S1, S2 without murmur, gallop, or rub. LUNGS: Global decrease in breath sounds with rhonchi and wheezes throughout both lung jeffries. ABDOMEN: Soft. Bowel sounds normoactive without mass, guarding, rebound, or organomegaly. No Homans' sign is appreciated. EXTREMITIES: Reveal no clubbing, cyanosis, or edema. SKIN: Shows no rash or excoriation. NEUROLOGIC: Within normal limits. LABORATORY DATA: No new laboratory tests are available. CLINICAL IMPRESSION: 1. Acute bronchitis. 2. Cough. 3. Acute bronchospasm. 4. Asthma. 5. Chronic obstructive pulmonary disease. 6. History of smoking. 7. Status post pulmonary embolism. PLAN: Continue bronchodilators. Monitor closely. If she continues to improve, we will be able to decrease some of the medications. It does not appear that this is related to any previous history as the patient is doing well on the appropriate medications. We will taper medication and follow closely, and we will discuss these problems with you. Darrell Bateman MD
--- NOTE | 2017-02-23 13:20 | PN ---
DATE: SUBJECTIVE: The patient is a 66-year-old seen and examined. Still has cough, congestion, and wheezing. Eating and tolerating. No fever and no chills. PHYSICAL EXAMINATION VITAL SIGNS: She is afebrile, pulse is 60, respirations are 20, and blood pressure is 118/64. LUNGS: Bilateral harsh rhonchi. HEART: S1 and S2 audible. ABDOMEN: Soft, obese, and nontender. No rebound and no guarding. NEUROLOGIC: The patient is awake, alert, oriented, and communicative. LABORATORY DATA: PT is 29.6 and INR is 2.64. Flu test is negative. DIAGNOSTIC DATA: She had CT scan of the chest done that is unremarkable. ASSESSMENT: 1. Asthmatic bronchitis. 2. Severe bronchospasm. 3. History of pulmonary embolism. 4. Hypertension. 5. Hyperlipidemia. PLAN: Follow up PT and INR in a.m. Follow up CBC and CMP in a.m. TCU evaluation has been requested. Once the patient is stable, we will transfer her to TCU. Kirsty Heredia MD
[2017-02-24] MEDS: Levalbuterol 1.25 MG/3 ML Inhal Soln UD IH SCH ×3 (01:16→13:29)
[2017-02-24] MEDS: Pantoprazole 40 mg EC Tab PO SCH (06:12)
[2017-02-24] MEDS: Budesonide 0.5 mg/2 ml Inhal Susp UD IH SCH (07:36)
[2017-02-24 07:48] LABS: BASO # 0.01 K/mm3 (0.0-2.0); BASO % 0.1 % (0.0-3.0); EOS % 0.2 % (1.5-5.0); GRAN # 6.61 (1.4-6.5); GRAN % 70.7 % (50.0-68.0); HEMATOCRIT 41.3 % (36.0-48.0); LYMPH # 1.8 (1.2-3.4); LYMPH % 19.3 % (22.0-35.0); MEAN CELL VOLUME 88.8 fl (80.0-105.0); MEAN CORPUSCULAR HGB CONC 32.7 g/dl (31.0-37.0); MEAN PLATELET VOLUME 11.4 fl (7.0-11.0); MONO # 0.9 (0.1-0.6); MONO % 9.7 % (1.0-6.0); RED CELL DISTRIBUTION WIDTH 15.5 % (11.5-14.5); WHITE BLOOD COUNT 9.4 10^3/ul (4.5-11.0)
[2017-02-24 08:01] LABS: INR 4.34 (0.93-1.08)
[2017-02-24 08:13] LABS: ALB/GLOB RATIO 1.2 (1.1-1.8); ALKALINE PHOSPHATASE 73 U/L (38-126); ALT/SGPT 25 U/L (7-56); AST/SGOT 16 U/L (14-36); BILIRUBIN,TOTAL 0.5 mg/dL (0.2-1.3); BLOOD UREA NITROGEN 21 mg/dL (7-21); CALCIUM 9.2 mg/dL (8.4-10.5); CARBON DIOXIDE 27 mmol/L (21-33); CHLORIDE 106 mmol/L (98-107); GFR AFRICAN-AMERICAN > 60; GLUCOSE,RANDOM 108 mg/dL (70-110); POTASSIUM 4.5 mmol/L (3.6-5.0); SODIUM 141 mmol/L (132-148); TOTAL PROTEIN 6.9 g/dL (5.8-8.3)
[2017-02-24 08:38] VITALS: BP 120/83; PULSE 78; RESP 18; TEMP 98.6
[2017-02-24] MEDS: cefTRIAXone 1 gm 1 GM/100 ML BAG IVPB SCH (09:32)
[2017-02-24] MEDS: MethylPREDNISolone 40 mg Vial IVP SCH (09:33)
--- NOTE | 2017-02-24 16:01 | PN ---
DATE: 02/24/2017 SUBJECTIVE: The patient has no complaints of any chest pain or shortness of breath. No headache or dizziness. PHYSICAL EXAMINATION: VITAL SIGNS: Temperature 98.6, pulse of 78, blood pressure is 120/83, and respirations 18. GENERAL: The patient is lying in bed, flat, comfortable. HEENT: No oral lesion. Anicteric sclerae. Moist mucosa. NECK: No JVD, adenopathy, or thyromegaly. CARDIOVASCULAR: S1 and S2, regular. No murmurs, rubs, or gallops. LUNGS: Clear to auscultation bilaterally. No wheeze, rales, or rhonchi. ABDOMEN: Bowel sounds are positive, soft, nontender and nondistended. EXTREMITIES: No cyanosis, clubbing or edema. LABORATORY DATA: Creatinine is 0.7. ASSESSMENT: 1. Acute asthma. 2. Pulmonary embolism history. 3. Hypertension. 4. Dyslipidemia. PLAN: The patient is currently comfortable. She is on Ambien for sleep. She is going to continue with Cymbalta for anxiety. She is on Coumadin for anticoagulation. The patient's INR is high at 4.4. The patient's Coumadin will be placed on hold. I did speak to the patient's nurse to inform her this is most likely from the antibiotics that the patient is on, as well as, these steroids. The patient will continue on Rocephin. She is on Xanax daily as needed. She is going to continue with Topamax. The patient is on heart-healthy diet. She will need repeat INR to be checked tomorrow. Gautam Carey MD
== END 2017-02-24 15:38 | DRG 191 ==
LOC: ED 14:42 → ERH 16:45 → 5RSO 18:46 → OBSVTOIN 02-19 15:09
PROVIDERS: ADMIT Internal Medicine; ATTEND Internal Medicine
DX: J44.1 Chronic obstructive pulmonary disease with (acute) exacerbation (principal); J45.901 Unspecified asthma with (acute) exacerbation; J20.9 Acute bronchitis, unspecified; J44.0 Chronic obstructive pulmonary disease with (acute) lower respiratory infection; J06.9 Acute upper respiratory infection, unspecified; Z86.711 Personal history of pulmonary embolism; Z86.718 Personal history of other venous thrombosis and embolism; Z79.01 Long term (current) use of anticoagulants; Z87.891 Personal history of nicotine dependence; Z62.810 Personal history of physical and sexual abuse in childhood; Z96.652 Presence of left artificial knee joint; E78.5 Hyperlipidemia, unspecified; F41.9 Anxiety disorder, unspecified; F32.89 Other specified depressive episodes; G43.909 Migraine, unspecified, not intractable, without status migrainosus; H54.61 Unqualified visual loss, right eye, normal vision left eye; H54.8 Legal blindness, as defined in USA; I10 Essential (primary) hypertension; K59.00 Constipation, unspecified; R40.2412 Glasgow coma scale score 13-15, at arrival to emergency department; K29.70 Gastritis, unspecified, without bleeding; Z88.6 Allergy status to analgesic agent

== ENCOUNTER 2017-02-24 15:42 | Inpatient (IN) | payer MEDICAID, OTHER ==
[2017-02-24] MEDS ORDERED: Levalbuterol 1.25 MG/3 ML Inhal Soln UD IH PRN (15:58)
[2017-02-24] MEDS ORDERED: Levalbuterol 0.63 MG/3 ML Inhal Soln UD IH PRN (16:43)
[2017-02-24] MEDS ORDERED: Levalbuterol 0.63 MG/3 ML Inhal Soln UD IH SCH (18:00)
[2017-02-24] MEDS: Levalbuterol 1.25 MG/3 ML Inhal Soln UD IH SCH (19:42)
[2017-02-24] MEDS: Budesonide 0.5 mg/2 ml Inhal Susp UD IH SCH (19:42)
[2017-02-24] MEDS ORDERED: MethylPREDNISolone 40 mg Vial IVP SCH (22:00)
[2017-02-25] MEDS: Levalbuterol 1.25 MG/3 ML Inhal Soln UD IH SCH ×4 (01:26→19:51)
[2017-02-25] MEDS: cefTRIAXone 1 gm in D5W 100ml IVPB SCH (05:34)
[2017-02-25] MEDS: Pantoprazole 40 mg EC Tab PO SCH (05:37)
[2017-02-25] MEDS: Budesonide 0.5 mg/2 ml Inhal Susp UD IH SCH ×2 (07:41→19:51)
--- NOTE | 2017-02-25 08:22 | PN ---
DATE: 02/25/2017 PULMONARY NOTE SUBJECTIVE: The patient appears comfortable this morning. She is not short of breath at rest. PHYSICAL EXAMINATION: VITAL SIGNS: Temperature is 98.1, pulse 65, respirations 18/20, blood pressure 133/88. Oxygen saturation on nasal cannula is 100%. HEENT: Normocephalic, atraumatic. NECK: No JVD. CARDIOVASCULAR: Positive S1, S2. No S3 gallop. LUNGS: Improved breath sounds at the bases. Minimal/less rhonchi. No wheezing this morning. EXTREMITIES: Mild edema. No cyanosis, no clubbing. Calves are nontender to palpation. GI: Abdomen is soft, nontender and nondistended. Bowel sounds are positive. SKIN: No acute rash. NEUROLOGIC: Exam limited at the present time. IMPRESSION: 1. Acute bronchitis. 2. Chronic obstructive pulmonary disease. 3. Asthma. 4. Acute rhinitis. 5. Pulmonary embolism in the past. PLAN: The patient appears comfortable this morning. She is not short of breath at rest. She does state to feeling much better overall. On physical exam, her bronchospasm is significantly less. In addition, the oxygen saturation on nasal cannula is now 100%. I will continue the current nebulizer treatments and decrease the intravenous steroids this morning. The patient remains on antibiotic therapy. There are no temperatures noted. Clinical status of the patient is significantly improved - compared to the initial presentation. The patient is now on the Transitional Unit - where she will participate with physical therapy. I will discuss the above with Dr. Heredia. Alok Escamilla MD MTDD
[2017-02-25] MEDS: Fluticasone Nasal 50 mcg/Spray NS SCH (10:46)
[2017-02-25] MEDS: MethylPREDNISolone 40 mg Vial IVP SCH ×2 (10:48→22:12)
--- NOTE | 2017-02-25 18:51 | CP.PCM.PCO ---
Addendum Addendum: 02/25/17 18:51 pt was seen on the meidcal side, signed off, pt is on xanax by PMD, re-consult as needed
[2017-02-26] MEDS: Levalbuterol 1.25 MG/3 ML Inhal Soln UD IH SCH ×4 (01:18→21:01)
--- NOTE | 2017-02-26 03:26 | HP ---
HISTORY OF PRESENT ILLNESS: The patient is a 66-year-old who came to emergency room because of increasing cough, congestion, and shortness of breath. She was given treatment by Dr. Maldonado as outpatient with no significant relief. The patient has been on IV antibiotics and IV steroids with no significant relief, so she was transferred to TCU to complete her course of antibiotic and close observation. PAST MEDICAL HISTORY: The patient has significant past medical history of: 1. Anxiety disorder. 2. History of COPD. 3. Hypertension. 4. History of pulmonary embolism in the past. 5. History of migraine headaches. 6. Hyperlipidemia. ALLERGIES: SHE IS ALLERGIC TO KETOROLAC. MEDICATIONS AT HOME: The patient is on: 1. Advair. 2. Xanax. 3. Norvasc 10 mg daily. 4. Coumadin 4 mg daily. 5. Topamax 100 mg twice a day. 6. Temazepam 30 mg daily. 7. Zocor 20 mg daily. 8. Omeprazole 40 mg daily. 9. Lisinopril 40 mg daily. SOCIAL HISTORY: She lives by herself. Denies smoking, drinking, or alcohol use. PHYSICAL EXAMINATION: GENERAL: The patient is awake, alert, oriented, and communicative. VITAL SIGNS: The patient is afebrile, pulse 105, respirations 20, and blood pressure 137/86. HEART: S1 and S2 audible. LUNGS: Bilateral good airflow. No rhonchi or crackles. ABDOMEN: Soft and nontender. No rebound. No guarding. NEUROLOGICAL: The patient is awake, alert, oriented, and communicative. ASSESSMENT: 1. Chronic obstructive pulmonary disease exacerbation. 2. Bronchospasm. 3. Bronchitis. 4. Hypertension. 5. Hyperlipidemia. 6. Anxiety disorder. PLAN: Currently, the patient is on nebulizer treatment. She is on her usual anxiety medication. She is on IV steroids and we will continue that. She is on Coumadin 4 mg daily. I will order for PT/INR for the morning and adjust her Coumadin dose. Kirsty Heredia MD
[2017-02-26] MEDS: cefTRIAXone 1 gm in D5W 100ml IVPB SCH (05:30)
[2017-02-26] MEDS: Pantoprazole 40 mg EC Tab PO SCH (05:30)
[2017-02-26 07:21] LABS: INR 2.72 (0.93-1.08)
[2017-02-26] MEDS: Budesonide 0.5 mg/2 ml Inhal Susp UD IH SCH ×2 (07:39→21:01)
--- NOTE | 2017-02-26 08:14 | PN ---
DATE: 02/26/2017 PULMONARY PROGRESS NOTE SUBJECTIVE: The patient appears comfortable this morning. She is not short of breath at rest. PHYSICAL EXAMINATION: VITAL SIGNS: Temperature is 98.6, pulse is 68, respirations are 16, and blood pressure is 117/70. Oxygen saturation on room air is 94%. HEENT: Normocephalic and atraumatic. NECK: No JVD. CARDIOVASCULAR: Positive S1 and S2. No S3 gallop. LUNGS: Minimal bilateral rhonchi. No wheezing. Extremities: Mild edema. No cyanosis and no clubbing. Calves are nontender to palpation. GASTROINTESTINAL: Abdomen is soft, nontender and nondistended. Bowel sounds are positive. SKIN: No acute rash. NEUROLOGIC: Exam is limited at the present time. IMPRESSION 1. Acute bronchitis. 2. Chronic obstructive pulmonary disease. 3. Asthma. 4. Acute rhinitis. 5. Pulmonary embolism in the past. PLAN: The patient appears comfortable this morning. She is not short of breath at rest. She does state to feeling much better overall. On physical exam, her bronchospasm continues to slowly resolve. In addition, the oxygen saturation on room air is now 94%. I will continue the current nebulizer treatments and intravenous steroids (decreased yesterday) for now. The patient remains on antibiotic therapy. There are no temperatures noted. Clinical status of the patient is significantly improved - compared to the initial presentation. I will discuss the above with Dr. Heredia. Alok Escamilla MD MTDD
[2017-02-26] MEDS: Fluticasone Nasal 50 mcg/Spray NS SCH (10:37)
[2017-02-26] MEDS: MethylPREDNISolone 40 mg Vial IVP SCH ×2 (10:37→22:02)
--- NOTE | 2017-02-26 21:10 | PN ---
DATE: SUBJECTIVE: The patient is a 66-year-old, seen and examined, sitting in the room. Doing well. Much less cough and congestion. Less wheezing. PHYSICAL EXAMINATION: VITAL SIGNS: She is afebrile, pulse 85, respirations 16, and blood pressure 130/96. LUNGS: Bilateral fair airflow, few expiratory rhonchi. HEART: S1 and S2 audible. ABDOMEN: Soft, obese, and nontender. No rebound. No guarding. NEUROLOGIC: She is awake, alert, oriented, and communicative. Walks with the cane. LABORATORY DATA: PT 30.5. INR 2.72. ASSESSMENT: 1. Asthma exacerbation. 2. Severe bronchospasm seems to be improving. 3. Hypertension. 4. Deconditioning and difficulty walking. 5. Anxiety disorder. 6. History of pulmonary embolism, on Coumadin, seems to be therapeutic. PLAN: We will continue the patient on Cymbalta. She is on Flonase. She is on Protonix, we will continue that. She is on Rocephin and Singulair. We will taper down her steroids slowly and we will continue her own Coumadin 4 mg daily and check her PT and INR intermittently. Kirsty Heredia MD
--- NOTE | 2017-02-27 01:06 | PN ---
DATE: FOLLOWUP NOTE SUBJECTIVE: As per medical team, this web content writer was involved into the patient care for possible anxiety, which was most related to the medical issues what she had. This web content writer sign off from this case on the medical side. The patient was transferred to Transitional Care Unit. As per Transitional Care Unit policy, the patient needs to be seen as long as the patient is on psychotropic medication. This web content writer was following up on this patient. The patient reported some improvement with her breathing. The patient is reporting improvement with anxiety. The patient denied being depressed. Denied thoughts of harming herself or others. Denied intents or plan. The patient has future oriented plans. The patient looking forward to start living with her sister. The patient compliant with the medication. Denied any side effects. LABORATORY DATA: Reviewed. MEDICATIONS: Reviewed. Discussed with the medical nurses. MENTAL STATUS EXAMINATION: As above, the patient was pleasant, cooperative, sometimes presented with shortness of breath and tremor, intermittent eye contact. Speech was normal rate, tone, quality, and quantity. Mood described "I am more hopeful." Affect was reactive, mood congruent. Thought process was coherent and goal directed. Thought content, the patient denied visual, auditory, or tactile hallucinations. Denied paranoid ideation. The patient denied thoughts of harming himself or others. Denied intents or plan. Insight and judgment are fair. Impulses are well controlled. IMPRESSION: Rule out anxiety disorder and mood disorder due to general medical condition which is improving. PLAN: Continue current management. Continue Cymbalta. Continue Xanax. The patient not in any imminent danger to self or others ____ primary care physician started Cymbalta as well as Xanax. There is no contraindication for that for short period of time. It is fine to give Xanax for this patient because the patient has history of COPD and shortness of breath. The patient will be improving faster as long as anxiety is under control. This web content writer will sign off. The patient not in any imminent danger to self or others. Should you have any questions, give me a call back. Thank you very much for letting me to participate in the care of your patient. Shabana Lares MD [facility] # [id number]
[2017-02-27] MEDS: cefTRIAXone 1 gm in D5W 100ml IVPB SCH (05:20)
[2017-02-27] MEDS: Pantoprazole 40 mg EC Tab PO SCH (05:21)
[2017-02-27] MEDS: Budesonide 0.5 mg/2 ml Inhal Susp UD IH SCH ×2 (07:23→21:00)
[2017-02-27] MEDS: Levalbuterol 1.25 MG/3 ML Inhal Soln UD IH SCH ×4 (07:24→21:04)
--- NOTE | 2017-02-27 08:44 | PN ---
DATE: 02/27/2017 PULMONARY PROGRESS NOTE SUBJECTIVE: The patient appears comfortable this morning. She is not short of breath at rest. PHYSICAL EXAMINATION: VITAL SIGNS: Temperature is 98.6, pulse is 66, respirations are 16, and blood pressure is 128/83. Oxygen saturation on nasal cannula is 96%. HEENT: Normocephalic and atraumatic. NECK: No JVD. CARDIOVASCULAR: Positive S1 and S2. No S3, gallop. LUNGS: Minimal/less rhonchi. No wheezing. EXTREMITIES: Mild edema. No cyanosis and no clubbing. Calves are nontender to palpation. GASTROINTESTINAL: Abdomen is soft, nontender and nondistended. Bowel sounds are positive. SKIN: No acute rash. NEUROLOGIC: Exam is limited at the present time. IMPRESSION 1. Acute bronchitis. 2. Chronic obstructive pulmonary disease. 3. Asthma. 4. Acute rhinitis. 5. Pulmonary embolism in the past. PLAN: The patient appears comfortable this morning. She is not short of breath at rest. She does state to feeling much better overall. On physical exam, her bronchospasm continues to slowly resolve. In addition, the oxygen saturation on nasal cannula is now 98%. I will continue the current nebulizer treatments and decrease the intravenous steroids this morning. The patient remains on antibiotic therapy. There are no temperatures noted. Clinical status of the patient is significantly improved. I will discuss the above with Dr. Heredia. Alok Escamilla MD MTDD
[2017-02-27] MEDS ORDERED: MethylPREDNISolone 40 mg Vial IVP SCH (10:00)
[2017-02-27] MEDS: Fluticasone Nasal 50 mcg/Spray NS SCH (11:00)
--- NOTE | 2017-02-27 21:03 | PN ---
DATE: SUBJECTIVE: The patient is a 66-year-old, seen and examined, sitting in chair seems to be comfortable. Complained of having painful ulcer under her nose where she was wearing oxygen cannula; otherwise, doing much better. PHYSICAL EXAMINATION: VITAL SIGNS: She is afebrile, pulse 83, respirations 18, and blood pressure 112/70. LUNGS: Bilateral good airflow, no rhonchi or crackle. HEART: S1 and S2 audible. ABDOMEN: Soft, nontender. No rebound. No guarding. NEUROLOGIC: The patient is awake, alert, oriented, communicative, and ambulatory. ASSESSMENT: 1. History of pulmonary embolism. 2. Status post asthma exacerbation. 3. Anxiety disorder. 4. History of depression. PLAN: We will discontinue Rocephin and start Bactroban for the nasal ulcer. We will switch her steroid to p.o. prednisone and we will follow up with you . Kirsty Heredia MD
[2017-02-28] MEDS: Levalbuterol 1.25 MG/3 ML Inhal Soln UD IH SCH ×4 (03:20→20:57)
[2017-02-28] MEDS: Pantoprazole 40 mg EC Tab PO SCH (05:48)
[2017-02-28] MEDS: Budesonide 0.5 mg/2 ml Inhal Susp UD IH SCH ×2 (07:25→20:56)
[2017-02-28 07:49] LABS: INR 1.39 (0.93-1.08)
--- NOTE | 2017-02-28 08:05 | PN ---
DATE: 02/28/2017 PULMONARY NOTE SUBJECTIVE: The patient appears comfortable this morning. She is not short of breath at rest. PHYSICAL EXAMINATION: VITAL SIGNS: Temperature is 98.0, pulse 67, respirations 18, blood pressure 113/69. Oxygen saturation on room air is 98%. HEENT: Normocephalic, atraumatic. NECK: No JVD. CARDIOVASCULAR: Positive S1, S2. No S3 gallop. LUNGS: Very minimal/less rhonchi. No wheezing. EXTREMITIES: Mild edema. No cyanosis, no clubbing. Calves are nontender to palpation. GI: Abdomen is soft, nontender and nondistended. Bowel sounds are positive. SKIN: No acute rash. NEUROLOGIC: Exam limited at the present time. IMPRESSION: 1. Acute bronchitis. 2. Chronic obstructive pulmonary disease. 3. Asthma. 4. Acute rhinitis. 5. Pulmonary embolism in the past. PLAN: The patient appears comfortable this morning. She is not short of breath at rest. She does state to feeling much, much better overall. On physical exam, her bronchospasm continues to resolve. In addition, the oxygen saturation on room air is now 98%. I will continue the current nebulizer treatments and oral steroids (changed today) for now. The patient is now off antibiotic therapy. There are no temperatures noted. Clinical status of the patient is significantly improved. I will discuss the above with Dr. Heredia. Alok Escamilla MD MTDD
[2017-02-28] MEDS: Fluticasone Nasal 50 mcg/Spray NS SCH (10:21)
--- NOTE | 2017-02-28 18:55 | PN ---
DATE: SUBJECTIVE: The patient is a 66-year-old, seen and examined, doing much better, eating and tolerating, ambulating. PHYSICAL EXAMINATION: VITAL SIGNS: She is afebrile, pulse 67, respirations 18, blood pressure 113/69. LUNGS: Bilateral occasional expiratory rhonchi. HEART: S1 and S2 audible. ABDOMEN: Soft, nontender. No rebound. No guarding. NEUROLOGIC: The patient is awake, alert, oriented. Able to communicate. LABORATORY DATA: PT is 15.4, INR 1.39. ASSESSMENT AND PLAN: 1. Asthma exacerbation. 2. Bronchospasm, improving. 3. Pulmonary embolism. 4. Hypertension. PLAN: We will give 7.5 mg of Coumadin today. Follow PT/INR in a.m. We will taper down steroid. We will follow up the patient in a.m. Kirsty Heredia MD
[2017-03-01] MEDS: Levalbuterol 1.25 MG/3 ML Inhal Soln UD IH SCH ×4 (02:56→20:40)
[2017-03-01] MEDS: Pantoprazole 40 mg EC Tab PO SCH (06:12)
[2017-03-01 07:20] LABS: INR 1.79 (0.93-1.08)
[2017-03-01] MEDS: Budesonide 0.5 mg/2 ml Inhal Susp UD IH SCH ×2 (07:33→20:40)
--- NOTE | 2017-03-01 07:51 | PN ---
DATE: 03/01/2017 PULMONARY PROGRESS NOTE SUBJECTIVE: The patient appears comfortable this morning. She is not short of breath at rest. PHYSICAL EXAMINATION: VITAL SIGNS: Temperature is 98.0, pulse is 61, respirations are 18, and blood pressure is 116/73. Oxygen saturation on nasal cannula is 97%. HEENT: Normocephalic and atraumatic. NECK: No JVD. CARDIOVASCULAR: Positive S1 and S2. No S3, gallop. LUNGS: Very minimal/less rhonchi. No wheezing. EXTREMITIES: Mild edema. No cyanosis and no clubbing. The calves are nontender to palpation. GASTROINTESTINAL: Abdomen is soft, nontender and nondistended. Bowel sounds are positive. SKIN: No acute rash. NEUROLOGIC: Exam is limited at the present time. IMPRESSION 1. Acute bronchitis. 2. Chronic obstructive pulmonary disease. 3. Asthma. 4. Acute rhinitis. 5. Pulmonary embolism in the past. PLAN: The patient appears comfortable this morning. She is not short of breath at rest. She is much less dyspneic on exertion. She does state to feeling much better overall. On physical exam, her bronchospasm continues to resolve. In addition, the oxygen saturation on nasal cannula is now 97% to 100%. I will continue the current nebulizer treatments and decrease the oral steroids this morning. The patient remains off antibiotic therapy. There are no temperatures noted. Clinical status of the patient is significantly improved - compared to the initial presentation. I will discuss the above with Dr. Heredia. Alok Escamilla MD MTDD
[2017-03-01] MEDS: Fluticasone Nasal 50 mcg/Spray NS SCH (11:00)
[2017-03-01] MEDS ORDERED: Docusate-Senna 50 mg-8.6 mg Tab PO STA (21:35)
--- NOTE | 2017-03-01 23:02 | PN ---
DATE: SUBJECTIVE: The patient is a 66-year-old, seen and examined. Doing well, eating and tolerating, ambulating. Minimal shortness of breath. Minimal cough. PHYSICAL EXAMINATION: VITAL SIGNS: She has temperature of 100, pulse 91, respirations 15, blood pressure 139/97. LUNGS: Bilateral fair airflow. No rhonchi or crackles. HEART: S1 and S2 audible. ABDOMEN: Soft, nontender. No rebound. No guarding. NEUROLOGIC: The patient is awake, alert, oriented, communicative, ambulatory. LABORATORY EXAM: PT is 19.9, INR 1.79. ASSESSMENT AND PLAN: 1. Chronic obstructive pulmonary disease exacerbation. 2. Bronchospasm. 3. History of pulmonary embolism. 4. Asthmatic bronchitis. PLAN: We can continue current medication. Discharge plan for a.m. We will give Coumadin 7.5 mg today. Kirsty Heredia MD
[2017-03-02] MEDS: Levalbuterol 1.25 MG/3 ML Inhal Soln UD IH SCH ×5 (01:49→20:07)
[2017-03-02] MEDS: Pantoprazole 40 mg EC Tab PO SCH (05:16)
[2017-03-02] MEDS: Budesonide 0.5 mg/2 ml Inhal Susp UD IH SCH ×2 (07:35→20:06)
[2017-03-02] MEDS: Fluticasone Nasal 50 mcg/Spray NS SCH (11:00)
--- NOTE | 2017-03-02 12:19 | PN ---
DATE: 03/02/2017 PULMONARY PROGRESS NOTE SUBJECTIVE: The patient was seen and examined on Transitional Care Unit. She states her breathing has improved. She is receiving prednisone 30 mg orally daily. She is also on inhalation therapy with budesonide and Xopenex. She is also on Singulair. PHYSICAL EXAMINATION: VITAL SIGNS: Her temperature is 97.9, pulse 63, respirations 18, pulse oximetry is 93 on room air. HEAD: Atraumatic and normocephalic. NECK: Supple with no jugular vein distention. CHEST: Few basilar rhonchi, no wheezing. CARDIOVASCULAR: S1 and S2. No S3 gallop. GASTROINTESTINAL: Soft, nontender. No organomegaly. EXTREMITIES: Mild edema. No cyanosis. SKIN: No acute skin rash. NEUROLOGIC: No focal deficits. ASSESSMENT: 1. Exacerbation of chronic obstructive pulmonary disease. 2. Bronchial asthma. 3. Acute rhinitis. 4. Pulmonary embolism in the past. PLAN: Patient is improving. She has less shortness of breath. We will continue with current dose of prednisone and taper gradually. Continue aerosol therapy with added steroids. Chandler Garcia MD
--- NOTE | 2017-03-02 21:33 | PN ---
DATE: SUBJECTIVE: The patient is a 66-year-old, seen and examined, sitting in chair, seems to be comfortable. No nausea. No vomiting. No diarrhea. Eating and tolerating, ambulating. Minimal shortness of breath on exertion. PHYSICAL EXAMINATION VITAL SIGNS: She is afebrile. Pulse 95, respirations 20, blood pressure 137/92. LUNGS: Bilateral fair airflow. No rhonchi or crackle. HEART: S1 and S2 audible. ABDOMEN: Soft, nontender. No rebound. No guarding. NEUROLOGIC: She is awake, alert, oriented. Able to communicate. Ambulatory. He has healing ulcer under her nose where she has friction because of nasal cannula. LABORATORY DATA: PT is 19.9, INR 1.79. ASSESSMENT: 1. Status post asthma exacerbation, seems to be improving. 2. Hypertension. 3. Hyperlipidemia. 4. History of pulmonary embolism. PLAN: We will order for PT/INR in a.m. Cut down her steroid. The patient is clinically stable. Discharge plan for Saturday. Kirsty Heredia MD
[2017-03-03] MEDS: Levalbuterol 1.25 MG/3 ML Inhal Soln UD IH SCH ×4 (03:42→19:29)
[2017-03-03] MEDS: Pantoprazole 40 mg EC Tab PO SCH (06:08)
[2017-03-03 06:18] LABS: INR 3.85 (0.93-1.08)
[2017-03-03] MEDS: Budesonide 0.5 mg/2 ml Inhal Susp UD IH SCH ×2 (07:34→19:29)
[2017-03-03] MEDS: Fluticasone Nasal 50 mcg/Spray NS SCH (10:29)
--- NOTE | 2017-03-03 15:52 | PN ---
DATE: SUBJECTIVE: The patient is a 66-year-old, seen and examined, sitting in chair, seems to be comfortable. No cough. No congestion. No nausea or vomiting. No diarrhea. Eating and tolerating. Ambulating with minimal shortness of breath. Is getting to ready to go home tomorrow. PHYSICAL EXAMINATION: VITAL SIGNS: She is afebrile, pulse 60, respirations 18, and blood pressure 135/83. LUNGS: Bilateral few exploratory rhonchi, but much better than before. HEART: S1 and S2, audible. ABDOMEN: Soft and nontender. No rebound. No guarding. NEUROLOGIC: She is awake, alert, oriented, communicative, and ambulatory. LABORATORY DATA: PT is 43.5 and INR is 3.85. ASSESSMENT: 1. History of pulmonary embolism. 2. Asthmatic bronchitis, resolved. 3. Asthma exacerbation. 4. Hypertension. PLAN: The patient is clinically stable. We will hold her Coumadin today. We will follow up PT and INR in a.m. Kirsty Heredia MD
[2017-03-03] MEDS: POLYETHYLENE GLYCOL 3350 17 GM/Dose PACKET PO SCH (21:24)
[2017-03-04 06:14] VITALS: BP 132/74; PULSE 72; RESP 16; TEMP 98.8; O2SAT 98
[2017-03-04] MEDS: Pantoprazole 40 mg EC Tab PO SCH (06:24)
[2017-03-04 07:29] LABS: INR 3.12 (0.93-1.08)
--- NOTE | 2017-03-04 07:51 | PN ---
DATE: 03/04/2017 PULMONARY NOTE SUBJECTIVE: The patient appears very comfortable this morning. She is not short of breath at rest. PHYSICAL EXAMINATION: VITAL SIGNS: Temperature is 98.8, pulse 72, respirations 16, blood pressure 132/74. Oxygen saturation on nasal cannula is 98%. HEENT: Normocephalic, atraumatic. NECK: No JVD. CARDIOVASCULAR: Positive S1, S2. No S3 gallop. LUNGS: Clear bilaterally. EXTREMITIES: Mild edema. No cyanosis, no clubbing. Calves are nontender to palpation. GI: Abdomen is soft, nontender and nondistended. Bowel sounds are positive. SKIN: No acute rash. NEUROLOGIC: Limited at the present time. IMPRESSION: 1. Acute bronchitis. 2. Chronic obstructive pulmonary disease. 3. Asthma. 4. Acute rhinitis. 5. Pulmonary embolism in the past. PLAN: The patient appears very comfortable this morning. She is not short of breath at rest. She is not short of breath on exertion. She does state to feeling much ,much better overall. On physical exam, her lungs are now clear. Oxygen saturation on nasal cannula is 98%. I will continue with the current nebulizer treatments and low-dose oral steroids (decreased yesterday) for now. The patient is for discharge in the near future. She is significantly improved overall. She does have my card/information for a followup appointment - if/when she is discharged. I will discuss the above with Dr. Heredia. Alok Escamilla MD MTDD
[2017-03-04] MEDS: Budesonide 0.5 mg/2 ml Inhal Susp UD IH SCH (08:42)
[2017-03-04] MEDS: Levalbuterol 1.25 MG/3 ML Inhal Soln UD IH SCH ×2 (08:42→13:43)
[2017-03-04] MEDS: Fluticasone Nasal 50 mcg/Spray NS SCH (09:54)
[2017-03-04] MEDS: POLYETHYLENE GLYCOL 3350 17 GM/Dose PACKET PO SCH (09:55)
--- NOTE | 2017-03-05 13:17 | DS ---
HISTORY OF PRESENT ILLNESS: The patient is 66 years old seen and examined. The patient was admitted with cough, congestion, shortness of breath. She was very tired, having bilateral dense rhonchi. CT scan was negative for pneumonia. She was given IV steroid, IV antibiotic, and nebulizer treatment with very slow response, so she was transferred to TCU for close observation and IV steroid and nebulizer treatment. The patient stayed well. Her stay was uneventful. PHYSICAL EXAMINATION: GENERAL: On examination today, she is awake, alert, oriented, and communicative. VITAL SIGNS: She is afebrile, pulse 72, respirations 16, and blood pressure 132/74. LUNGS: Bilateral good airflow. No rhonchi or crackle. HEART: S1, S2 audible. ABDOMEN: Soft, obese, nontender. No rebound. No guarding. NEUROLOGIC: She is awake, alert, oriented, and communicative. LABORATORY DATA: PT is 35.1, INR 3.14. ASSESSMENT AND PLAN: 1. Status post asthma exacerbation. 2. Status post asthmatic bronchitis. 3. Hypertension. 4. Anxiety disorder. 5. Hyperlipidemia. 6. Gastritis. PLAN: The patient is being discharged home on her usual medication including lisinopril 40 mg daily, omeprazole 40 daily, Zocor 20 mg daily, temazepam 30 mg at bedtime. Topamax and Coumadin, she will resume as usual and she was given prescription of prednisone 20 mg twice a day. She was given solution of albuterol to use as needed every six hours. She will follow up with Dr. Hernandez and Dr. Maldonado as an outpatient. Kirsty Heredia MD
== END 2017-03-04 16:58 | disposition home or self-care (01) | DRG 191 ==
LOC: TRCU 15:42
PROVIDERS: ADMIT Internal Medicine; ATTEND Internal Medicine
PROC: F07Z9FZ Gait Training/Functional Ambulation Treatment using Assistive, Adaptive, Supportive or Protective Equipment (ICD-10-PCS; principal; 2017-02-25)
PROC: F07M6ZZ Therapeutic Exercise Treatment of Musculoskeletal System - Whole Body (ICD-10-PCS; 2017-02-25)
PROC: F08Z1ZZ Dressing Techniques Treatment (ICD-10-PCS; 2017-02-25)
PROC: F08Z2ZZ Grooming/Personal Hygiene Treatment (ICD-10-PCS; 2017-02-25)
DX: J44.1 Chronic obstructive pulmonary disease with (acute) exacerbation (principal); J45.901 Unspecified asthma with (acute) exacerbation; J20.9 Acute bronchitis, unspecified; J44.0 Chronic obstructive pulmonary disease with (acute) lower respiratory infection; I10 Essential (primary) hypertension; F41.9 Anxiety disorder, unspecified; E78.5 Hyperlipidemia, unspecified; J00 Acute nasopharyngitis [common cold]; K29.70 Gastritis, unspecified, without bleeding; Z79.01 Long term (current) use of anticoagulants; Z79.899 Other long term (current) drug therapy; Z86.711 Personal history of pulmonary embolism; G43.909 Migraine, unspecified, not intractable, without status migrainosus; Z88.6 Allergy status to analgesic agent

== ENCOUNTER 2017-04-07 13:18 | Inpatient (IN) | payer MEDICARE, OTHER ==
[2017-04-07 13:48] VITALS: BMI 36.9
[2017-04-07] MEDS ORDERED: Oxycodone/Acetaminophen 5/325 mg Tab PO PRN (14:29)
[2017-04-07] MEDS ORDERED: Non Formulary Medication (Omeprazole [Omeprazole] 40 MG) PO SCH (14:30)
--- NOTE | 2017-04-07 14:36 | RAD ---
HISTORY: b/l leg edema COMPARISON: 02/18/2017 FINDINGS: LUNGS: No active pulmonary disease. PLEURA: No significant pleural effusion identified, no pneumothorax apparent. CARDIOVASCULAR: Normal. OSSEOUS STRUCTURES: No significant abnormalities. VISUALIZED UPPER ABDOMEN: Normal. OTHER FINDINGS: None. IMPRESSION: No active disease.
[2017-04-07 14:37] LABS: RBC 3.99 [, 10^6/uL] (3.5-6.1); WHITE BLOOD COUNT 4.8 [, 10^3/ul] (4.5-11.0)
[2017-04-07 14:38] LABS: BASO # 0.04 [, K/mm3] (0.0-2.0); BASO % 0.8 % (0.0-3.0); EOS # 0.4 (0.0-0.7); EOS % 7.3 % (1.5-5.0); GRAN # 2.83 (1.4-6.5); LYMPH # 1.1 (1.2-3.4); LYMPH % 22.1 % (22.0-35.0); MEAN CELL VOLUME 93.2 fl (80.0-105.0); MEAN CORPUSCULAR HEMOGLOBIN 30.1 pg (25.0-35.0); MEAN CORPUSCULAR HGB CONC 32.3 g/dl (31.0-37.0); MEAN PLATELET VOLUME 11.9 fl (7.0-11.0); MONO # 0.5 (0.1-0.6); MONO % 10.8 % (1.0-6.0); RED CELL DISTRIBUTION WIDTH 16.6 % (11.5-14.5)
[2017-04-07 14:40] LABS: ALB/GLOB RATIO 1.3 (1.1-1.8); ALT/SGPT 42 U/L (7-56); AST/SGOT 32 U/L (14-36); BLOOD UREA NITROGEN 10 mg/dL (7-21); CALCIUM 9.3 mg/dL (8.4-10.5); GFR AFRICAN-AMERICAN > 60; GFR NON-AFRICAN AMERICAN > 60
[2017-04-07 14:47] LABS: B-TYPE NATRIURETIC PEPTIDE 107 pg/mL (0-450)
--- NOTE | 2017-04-07 16:09 | ED PDOC ---
Arrival/HPI - General Chief Complaint: Lower Extremity Problem/Injury Time Seen by Provider: 04/07/17 14:01 Historian: Patient - History of Present Illness Narrative History of Present Illness (Text): 04/07/17 16:09 66-year-old female presents today with a 3 day history of bilateral leg swelling and erythema. Patient states she's had significant increase in the swelling in her legs bilaterally as well as worsening redness in the legs bilaterally. Patient denies fevers at home. Denies chest pain or shortness of breath. Denies dizziness or weakness. pt denies cp or sob. no vomiting/ diarrhea. no urinary symptoms. no other complaints. Time/Duration: Other (3 days) Symptom Onset: Gradual Symptom Course: Worsening Quality: Aching Severity Level: 5 Past Medical History - Provider Review Nursing Documentation Reviewed: Yes - Travel History Have you recently traveled outside [place] w/in the past 3 mons?: No - Infectious Disease Hx of Infectious Diseases: None - Tetanus Immunization Tetanus Immunization: Unknown - Cardiac Hx Hypertension: Yes - Pulmonary Hx Respiratory Disorders: Yes Hx Chronic Obstructive Pulmonary Disease (COPD): Yes - Neurological Hx Neurological Disorder: Yes Hx Migraine: Yes - HEENT Hx HEENT Disorder: Yes Hx Blind: Yes (partial vision right eye, 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 wears glasses - Renal Hx Renal Disorder: No - Endocrine/Metabolic Hx Endocrine Disorders: No - Hematological/Oncological Hx Blood Disorders: No - Integumentary Hx Dermatological Disorder: No - Musculoskeletal/Rheumatological Hx Musculoskeletal Disorders: Yes Hx Falls: Yes - Gastrointestinal Hx Gastrointestinal Disorders: Yes (CONSTIPATION,GASTRITIS) - Genitourinary/Gynecological Hx Genitourinary Disorders: No - Psychiatric Hx Psychophysiologic Disorder: Yes Hx Anxiety: Yes Hx Emotional Abuse: (pt. stated no) Hx Physical Abuse: (pt stated no) Hx Substance Use: No - Surgical History Hx Joint Replacement: Yes (left knee) Other/Comment: colonoscopy S/p LTKR 07/12/2014 - Anesthesia Hx Anesthesia: Yes Hx Anesthesia Reactions: Yes (nausea) Hx Malignant Hyperthermia: No - Suicidal Assessment Feels Threatened In Home Enviroment: No Family/Social History - Physician Review Nursing Documentation Reviewed: Yes Family/Social History: Unknown Family HX Smoking Status: Never Smoked Hx Alcohol Use: Yes (social) Hx Substance Use: No Hx Substance Use Treatment: No Allergies/Home Meds Allergies/Adverse Reactions: Allergies diltiazem [From Cardizem] Allergy (Verified 04/07/17 14:00) RASH ketorolac Allergy (Verified 04/07/17 13:48) SHORTNESS OF BREATH Home Medications: Home Meds Medication Instructions Recorded Confirmed Omeprazole 40 mg PO DAILY 02/18/17 04/07/17 Warfarin [Coumadin] 4 mg PO DAILY 02/18/17 04/07/17 ALPRAZolam [Xanax] 0.5 mg PO QID 02/19/17 04/07/17 Albuterol HFA [Ventolin HFA 90 90 mcg INH TID PRN 02/19/17 04/07/17 mcg/actuation (8 g)] Fluticasone/Salmeterol 250/50 2 puff INH DAILY PRN 02/19/17 04/07/17 [Advair Diskus 250/50] Lisinopril [Zestril] 40 mg PO DAILY 02/19/17 04/07/17 Simvastatin [Zocor] 20 mg PO DAILY 02/19/17 04/07/17 Temazepam 30 mg PO DAILY 02/19/17 04/07/17 Topiramate [Topamax] 100 mg PO BID 02/19/17 04/07/17 amLODIPine [Norvasc] 10 mg PO DAILY 02/19/17 04/07/17 Review of Systems - Review of Systems Constitutional: absent: Fatigue, Fevers Respiratory: absent: SOB, Cough Cardiovascular: absent: Chest Pain, Palpitations Gastrointestinal: absent: Abdominal Pain, Nausea, Vomiting Genitourinary Female: absent: Dysuria, Frequency, Hematuria Musculoskeletal: Arthralgias. absent: Back Pain, Neck Pain Skin: Cellulitis Neurological: absent: Headache, Dizziness Psychiatric: absent: Anxiety, Depression Physical Exam Vital Signs Reviewed: Yes Vital Signs Temp Pulse Resp BP Pulse Ox 04/07/17 13:42 98.6 F 102 H 18 135/84 94 L Temperature: Afebrile Blood Pressure: Hypertensive Pulse: Regular Respiratory Rate: Normal Appearance: Positive for: Well-Appearing, Non-Toxic, Comfortable Pain Distress: None Mental Status: Positive for: Alert and Oriented X 3 - Systems Exam Head: Present: Atraumatic Mouth: Present: Moist Mucous Membranes Neck: Present: Normal Range of Motion Respiratory/Chest: Present: Clear to Auscultation, Good Air Exchange. No: Respiratory Distress, Accessory Muscle Use Cardiovascular: Present: Regular Rate and Rhythm, Normal S1, S2. No: Murmurs Abdomen: No: Tenderness, Distention, Rebound, Guarding Upper Extremity: Present: Normal Inspection, Normal ROM Lower Extremity: Present: Tenderness (Bilateral lower leg edema and erythema, positive warmth. Sensation and distal pulses intact.), Swelling, Erythema, Neurovascularly Intact, Capillary Refill < 2 s Neurological: Present: GCS=15, Speech Normal Skin: Present: Warm, Dry Psychiatric: Present: Alert, Oriented x 3 Medical Decision Making ED Course and Treatment: 04/07/17 16:21 66-year-old female with worsening bilateral lower leg pain with erythema 3 days CBC within normal limits CMP within normal limits BNP within normal limits INR; 2.3 blood cultures pending UA; wnl venous duplex of bilateral lower legs; negative for dvt verbal report from [facility]. Chest x-ray:FINDINGS: LUNGS: No active pulmonary disease. PLEURA: No significant pleural effusion identified, no pneumothorax apparent. CARDIOVASCULAR: Normal. OSSEOUS STRUCTURES: No significant abnormalities. VISUALIZED UPPER ABDOMEN: Normal. OTHER FINDINGS: None. IMPRESSION: No active disease. pt started on zosyn IV. 04/07/17 16:[address] marrero covering for dr. hernandez; accepts observational status admission for cellulitis and lower leg edema. impression; cellulitis admit observational status to med/surg. - Lab Interpretations Lab Results: 04/07/17 14:00 04/07/17 14:00 Lab Results 04/07/17 15:41: Urine Color Light yellow, Urine Appearance Clear, Urine pH 7.5, Ur Specific [place] 1.010, Urine Protein Negative, Urine Glucose (UA) Negative, Urine Ketones Negative, Urine Blood Negative, Urine Nitrate Negative, Urine Bilirubin Negative, Urine Urobilinogen 0.2, Ur Leukocyte Esterase Negative 04/07/17 14:00: PT 26.7 H, INR 2.30 H, APTT 46.7 H 04/07/17 14:00: WBC 4.8 D, RBC 3.99, Hgb 12.0, Hct 37.2, MCV 93.2 D, MCH 30.1 , MCHC 32.3, RDW 16.6 H, Plt Count 208, MPV 11.9 H, Gran % 59.0, Lymph % (Auto) 22.1, Granite % (Auto) 10.8 H, Eos % (Auto) 7.3 H, Baso % (Auto) 0.8, Gran # 2.83, Lymph # 1.1 L, Granite # 0.5, Eos # 0.4, Baso # 0.04 04/07/17 14:00: Sodium 142, Potassium 3.7, Chloride 107, Carbon Dioxide 22, Anion Gap 16, BUN 10, Creatinine 0.6 L, Est GFR ( Amer) > 60, Est GFR ( Non-Af Amer) > 60, Random Glucose 95, Calcium 9.3, Total Bilirubin 0.3, AST 32, ALT 42, Alkaline Phosphatase 89, NT-Pro-B Natriuret Pep 107, Total Protein 7.1, Albumin 4.0, Globulin 3.0, Albumin/Globulin Ratio 1.3 - RAD Interpretation Radiology Orders: 04/07/17 14:01 DUPLEX LOWER EXTRM VEIN BILAT [US] Stat 04/07/17 14:02 CHEST PORTABLE [RAD] Stat - Medication Orders Current Medication Orders: Alprazolam (Xanax) 0.5 mg PO QID KRISTYN PRN Reason: Protocol Amlodipine Besylate (Norvasc) 10 mg PO DAILY [facility] Atorvastatin Calcium (Lipitor) 10 mg PO DIN [facility] Piperacillin Sod/Tazobactam Sod (Zosyn 3.375 In Ns 100ml) 100 mls @ 200 mls/hr IVPB STAT STA PRN Reason: Protocol Stop: 04/07/17 16:53 Lisinopril (Zestril) 40 mg PO DAILY [facility] Temazepam [Temazepam (] 30 Mg (Home Med)) 30 mg PO DAILY [facility] Oxycodone/Acetaminophen (Percocet 5/325 Mg Tab) 2 tab PO Q6 PRN PRN Reason: Pain, moderate (4-7) Stop: 04/10/17 18:01 Pantoprazole Sodium (Protonix Ec Tab) 40 mg PO DAILY [facility] Topiramate (Topamax) 100 mg PO BID KRISTYN PRN Reason: Protocol Warfarin Sodium (Coumadin) 4 mg PO DAILY [facility] Last Admin: 04/07/17 15:45 Dose: 4 mg Discontinued Medications Non-Formulary Medication (Omeprazole [Omeprazole]) 40 mg PO DAILY [facility] Last Admin: 04/07/17 14:32 Dose: Disposition/Present on Arrival - Present on Arrival Any Indicators Present on Arrival: No History of DVT/PE: No History of Uncontrolled Diabetes: No Urinary Catheter: No History of Decub. Ulcer: No History Surgical Site Infection Following: None - Disposition Have Diagnosis and Disposition been Completed?: Yes Diagnosis: Cellulitis Disposition: HOSPITALIZED Disposition Time: 16:27 Patient Plan: Observation Patient Problems: Current Active Problems Problem Status Onset Cellulitis Acute Condition: FAIR
[2017-04-07] MEDS ORDERED: Piperacillin/Tazobact 3.375 gm 100 ML IVPB STA (16:24)
[2017-04-07 16:29] LABS: PH,URINE 7.5 (4.7-8.0); URINE BILIRUBIN NEGATIVE (NEGATIVE); URINE BLOOD NEGATIVE (NEGATIVE); URINE GLUCOSE (UA) NEGATIVE (NEGATIVE); URINE LEUKOCYTE ESTERASE NEGATIVE Leu/uL (NEGATIVE); URINE NITRATE NEGATIVE (NEGATIVE); URINE PROTEIN NEGATIVE mg/dL (<30 mg/dL); URINE UROBILINOGEN 0.2 E.U./dL (<1 E.U./dL)
[2017-04-07 16:36] LABS: URINE APPEARANCE CLEAR (CLEAR); URINE COLOR LIGHT YELLOW (YELLOW)
[2017-04-07 16:42] LABS: INR 2.3 (0.93-1.08); PARTIAL THROMBOPLASTIN TIME 46.7 Seconds (25.1-36.5); PROTHROMBIN TIME 26.7 SECONDS (9.4-12.5)
[2017-04-07] MEDS: Oxycodone/Acetaminophen 5/325 mg Tab PO PRN (18:16)
--- NOTE | 2017-04-08 00:02 | HP ---
DATE OF EVALUATION: 04/07/2017 HISTORY OF PRESENT ILLNESS: Ms. Ynes Johns is a 66-year-old female brought to Emergency Room with bilateral lower extremity swelling and redness. She is unable to walk. No fever, no cough with expectoration. No history of DVT in the past. Hypertension, blood pressure control on current medications, COPD, no recent exacerbation, history of migraine headache, no recent exacerbation of headache. PAST MEDICAL HISTORY: COPD, hypertension, migraine headache, anxiety. PAST SURGICAL HISTORY: Left knee surgery. ALLERGIES: DILTIAZEM AND KETOROLAC. HOME MEDICATIONS: Omeprazole 40 mg daily, Coumadin 4 mg daily, Xanax 0.5 mg p.o. four times daily, lisinopril 40 mg daily, Zocor 20 mg daily, Topamax 100 mg p.o. b.i.d., amlodipine 10 mg daily. PERSONAL HISTORY: Never smoke. No history of alcohol abuse. REVIEW OF SYSTEMS: As per HPI. Rest of 12-point review of systems reviewed and negative. PHYSICAL EXAMINATION GENERAL: Comfortable in bed in no acute distress. VITAL SIGNS: Temperature 98.6, heart rate is 102 per minute, respiratory rate 18 per minute, blood pressure 135/84, pulse is 94 per minute. HEENT: Normal. NECK: No lymphadenopathy. CHEST: Air entry present equal and bilateral. No added sounds. CARDIOVASCULAR: S1 and S2 normal. No murmur, no gallop. ABDOMEN: Soft, nontender. No hepatosplenomegaly. EXTREMITIES: Bilateral swelling present. Bilateral leg edema present. DONATION WORKER: Alert and oriented x3. No focal sensory or motor deficits. LABORATORY DATA: INR 2.3. White count 4.8, hemoglobin 12, hematocrit 37.2, platelet count 208. Sodium 142, potassium 3.7, BUN 10, creatinine 0.6. Bilateral lower extremity ultrasound negative for DVT. ASSESSMENT: 1. Bilateral lower extremity cellulitis. 2. Hypertension. 3. Chronic obstructive pulmonary disease. PLAN: She will be admitted to the hospital. She received Zosyn in the ER, one dose of Zosyn. ID consultation with Dr. Busch requested. We will continue Coumadin 4 mg daily, Topamax 100 mg p.o. b.i.d., oxycodone p.r.n. for pain. Continue lisinopril 40 mg daily, Norvasc 10 mg daily, Xanax 0.5 mg p.o. four times daily. Zita Watts MD MTDNorris
[2017-04-08 09:47] LABS: BASO # 0.04 [, K/mm3] (0.0-2.0); BASO % 0.9 % (0.0-3.0); EOS # 0.4 (0.0-0.7); EOS % 9.5 % (1.5-5.0); GRAN % 45.5 % (50.0-68.0); LYMPH # 1.5 (1.2-3.4); MEAN CELL VOLUME 93.2 fl (80.0-105.0); MEAN CORPUSCULAR HEMOGLOBIN 29.5 pg (25.0-35.0); MEAN CORPUSCULAR HGB CONC 31.7 g/dl (31.0-37.0); MEAN PLATELET VOLUME 11.1 fl (7.0-11.0); MONO # 0.4 (0.1-0.6); MONO % 9.1 % (1.0-6.0); RBC 4.4 [, 10^6/uL] (3.5-6.1); RED CELL DISTRIBUTION WIDTH 16.4 % (11.5-14.5); WHITE BLOOD COUNT 4.4 [, 10^3/ul] (4.5-11.0)
[2017-04-08] MEDS: Pantoprazole 40 mg EC Tab PO SCH (09:48)
[2017-04-08 09:52] LABS: INR 2.32 (0.93-1.08); PROTHROMBIN TIME 27.1 SECONDS (9.4-12.5)
[2017-04-08] MEDS: Oxycodone/Acetaminophen 5/325 mg Tab PO PRN ×3 (09:59→20:09)
[2017-04-08 10:10] LABS: BLOOD UREA NITROGEN 6 mg/dL (7-21); CALCIUM 9.1 mg/dL (8.4-10.5); GFR AFRICAN-AMERICAN > 60; GFR NON-AFRICAN AMERICAN > 60
[2017-04-08] MEDS: TEMAZEPAM 30 MG PO SCH (11:59)
--- NOTE | 2017-04-08 12:56 | US ---
HISTORY: Leg pain and swelling. Evaluate for DVT PHYSICIAN(S): Al Slaughter MD. TECHNIQUE: Duplex sonography and color-flow Doppler with graded compression were used to evaluate the deep venous systems of both lower extremities. The exam is limited by body habitus and edema. FINDINGS: The visualized deep venous systems of both lower extremities are sonographically normal and compressible. Normal wave forms and augmentation are seen. There is no sonographic evidence for deep venous thrombosis in the visualized segments of both lower extremities. IMPRESSION: No sonographic evidence for deep venous thrombosis in the visualized segments of both lower extremities. Limited study
[2017-04-08] MEDS: Cefepime 1gm in NS 100ml 1 GM/100 ML BAG IVPB SCH ×2 (14:03→21:38)
[2017-04-08] MEDS: Vancomycin 1gm in NS 250ml 1 GM/250 ML BAG IVPB SCH (14:03)
[2017-04-08] MEDS: Albuterol-Ipratrop 3 mg / 0.5 (3 ml) UD IH SCH ×2 (14:34→20:33)
--- NOTE | 2017-04-08 23:17 | CP.PCM.PN ---
Subjective - Date & Time of Evaluation Date of Evaluation: 04/08/17 Time of Evaluation: 18:00 - Subjective Subjective: DATE OF EVALUATION: 04/08/2017 HISTORY OF PRESENT ILLNESS: Ms. Ynes Johns is a 66-year-old female brought to Emergency Room with bilateral lower extremity swelling and redness. She is unable to walk. No fever, no cough with expectoration. No history of DVT in the past. Hypertension, blood pressure control on current medications, COPD, no recent exacerbation, history of migraine headache, no recent exacerbation of headache. Currently on cefepime, vanco. No leg pain. PAST MEDICAL HISTORY: COPD, hypertension, migraine headache, anxiety. PAST SURGICAL HISTORY: Left knee surgery. ALLERGIES: DILTIAZEM AND KETOROLAC. HOME MEDICATIONS: Omeprazole 40 mg daily, Coumadin 4 mg daily, Xanax 0.5 mg p.o. four times daily, lisinopril 40 mg daily, Zocor 20 mg daily, Topamax 100 mg p.o. b.i.d., amlodipine 10 mg daily. PERSONAL HISTORY: Never smoke. No history of alcohol abuse. REVIEW OF SYSTEMS: As per HPI. Rest of 12-point review of systems reviewed and negative. PHYSICAL EXAMINATION GENERAL: Comfortable in bed in no acute distress. VITAL SIGNS: reviewed. HEENT: Normal. NECK: No lymphadenopathy. CHEST: Air entry present equal and bilateral. No added sounds. CARDIOVASCULAR: S1 and S2 normal. No murmur, no gallop. ABDOMEN: Soft, nontender. No hepatosplenomegaly. EXTREMITIES: Bilateral swelling present. Bilateral leg edema present. CHIEF ENGINEER WATERWORKS: Alert and oriented x3. No focal sensory or motor deficits. LABORATORY DATA: reviewed. ASSESSMENT: 1. Bilateral lower extremity cellulitis. 2. Hypertension. 3. Chronic obstructive pulmonary disease. PLAN: ID consultation with Dr. Busch appreciated. We will continue Coumadin 4 mg daily, Topamax 100 mg p.o. b.i.d., oxycodone p.r.n. for pain. Continue lisinopril 40 mg daily, Norvasc 10 mg daily, Xanax 0.5 mg p.o. four times daily. On cefepime, vanco. advised ambulation. Doppler negative B/L legs. Zita Watts MD Objective - Vital Signs/Intake and Output Vital Signs (last 24 hours): Temp Pulse Resp BP Pulse Ox 98.2 F 79 20 154/96 H 96 04/08/17 17:00 04/08/17 17:00 04/08/17 17:00 04/08/17 17:00 04/08/17 17:00 Intake and Output: 04/08/17 04/09/17 18:59 06:59 Intake Total 900 Output Total 400 Balance 500 - Medications Medications: Current Medications Albuterol/Ipratropium (Duoneb 3 Mg/0.5 Mg (3 Ml) Ud) 3 ml IH [id number] [facility] Last Admin: 04/08/17 20:33 Dose: 3 ml Alprazolam (Xanax) 0.5 mg PO QID KRISTYN PRN Reason: Protocol Last Admin: 04/08/17 21:41 Dose: 0.5 mg Amlodipine Besylate (Norvasc) 10 mg PO DAILY [facility] Last Admin: 04/08/17 09:49 Dose: 10 mg Atorvastatin Calcium (Lipitor) 10 mg PO DIN [facility] Last Admin: 04/08/17 17:25 Dose: 10 mg Cefepime HCl (Maxipime 1gm) 1 gm in 100 mls @ 100 mls/hr IVPB Q8 KRISTYN PRN Reason: Protocol Stop: 04/17/17 14:01 Last Admin: 04/08/17 21:38 Dose: 100 mls/hr Vancomycin HCl (Vancomycin 1gm) 1 gm in 250 mls @ 167 mls/hr IVPB Q12H KRISTYN PRN Reason: Protocol Stop: 04/17/17 14:01 Last Admin: 04/08/17 14:03 Dose: 167 mls/hr Lisinopril (Zestril) 40 mg PO DAILY [facility] Last Admin: 04/08/17 09:48 Dose: 40 mg Temazepam [Temazepam (] 30 Mg (Home Med)) 30 mg PO DAILY [facility] Last Admin: 04/08/17 11:59 Dose: Not Given Oxycodone/Acetaminophen (Percocet 5/325 Mg Tab) 2 tab PO Q6 PRN PRN Reason: Pain, moderate (4-7) Stop: 04/10/17 18:01 Oxycodone/Acetaminophen (Percocet 5/325 Mg Tab) 1 tab PO Q4H PRN PRN Reason: Pain, moderate (4-7) Stop: 04/10/17 17:50 Last Admin: 04/08/17 20:09 Dose: 1 tab Pantoprazole Sodium (Protonix Ec Tab) 40 mg PO DAILY [facility] Last Admin: 04/08/17 09:48 Dose: 40 mg Topiramate (Topamax) 100 mg PO BID [facility] PRN Reason: Protocol Last Admin: 04/08/17 17:25 Dose: 100 mg Warfarin Sodium (Coumadin) 4 mg PO DAILY [facility] Last Admin: 04/08/17 09:48 Dose: 4 mg - Labs Labs: PT 27.1 SECONDS (9.4-12.5) H 04/08/17 09:30 INR 2.32 (0.93-1.08) H 04/08/17 09:30 APTT 46.7 Seconds (25.1-36.5) H 04/07/17 14:00
--- NOTE | 2017-04-09 00:54 | CON ---
DATE: 04/08/2017 CHIEF COMPLAINT: Lower extremity erythema for several days. HISTORY OF PRESENT ILLNESS: This is a 66-year-old female with past medical history of chronic obstructive lung disease, hypertension, migraine, headaches, anxiety, history of left knee surgery, history of left foot surgery, and admitted through the emergency room, seen by Dr. Daksha Waggoner and the patient has not had any fevers, any chills, no nausea, no vomiting. PAST MEDICAL HISTORY: Significant for COPD, hypertension, anxiety, and migraine headaches. PAST SURGICAL HISTORY: Significant for left knee surgery, left foot surgery. ALLERGIES: THE PATIENT IS ALLERGIC TO DILTIAZEM AND KETOROLAC. MEDICATIONS AT HOME: Coumadin, Topamax, Norvasc, omeprazole, Zocor, Zestril, and Xanax. PHYSICAL EXAMINATION GENERAL: The patient is in bed, no acute distress. Answering questions. VITAL SIGNS: Temperature of 98, blood pressure is 130/60, respiratory rate of 18, heart rate of 102, saturation at 94%. NECK: Supple. LUNGS: Decreased breath sounds. HEART: Normal S1, S2. ABDOMEN: Soft and nontender. EXTREMITIES: Examination of the lower extremity; significant cellulitis measuring and covering the lower legs and streaking up to right thigh. LABORATORY DATA: Reveals a white count of 4.4, hemoglobin of 13, and platelets of 231. Chemistries reveal a BUN of 6, creatinine of 0.6. Urinalysis is noted. Microbiology is pending. The patient had recent hospitalization with COPD, lower respiratory infection and asthmatic in February. ASSESSMENT AND PLAN: A 66-year-old female with obesity with BMI of 36, chronic obstructive lung disease, anxiety, hypertension, migraine headaches with severe bilateral lower extremity cellulitis streaking up to thigh on the right leg, recent hospitalization. We will treat the patient with vancomycin and Maxipime. We will follow the patient clinically. We will make further recommendations. The patient had a HIV test done in July of 2016, which was negative. Kristopher Busch MD
[2017-04-09] MEDS: Albuterol-Ipratrop 3 mg / 0.5 (3 ml) UD IH SCH ×4 (01:47→20:27)
[2017-04-09] MEDS: Vancomycin 1gm in NS 250ml 1 GM/250 ML BAG IVPB SCH ×2 (03:11→17:01)
[2017-04-09] MEDS: Cefepime 1gm in NS 100ml 1 GM/100 ML BAG IVPB SCH ×3 (05:44→21:39)
[2017-04-09] MEDS: Pantoprazole 40 mg EC Tab PO SCH (10:20)
[2017-04-09] MEDS: Oxycodone/Acetaminophen 5/325 mg Tab PO PRN ×2 (10:34→20:02)
[2017-04-09] MEDS: TEMAZEPAM 30 MG PO SCH (15:47)
--- NOTE | 2017-04-09 23:15 | PN ---
DATE: 04/09/2017 SUBJECTIVE: She is comfortable in bed in no acute distress. Bilateral lower leg swelling. Bilateral lower leg erythema present. She is complaining of itching over the legs. She has cellulitis of lower extremity streaking down to the thighs, both legs. She is currently on IV antibiotics. ID Dr. Busch following. No shortness of breath. She is currently on bronchodilators, history of COPD, hypertension, blood pressure controlled with current medications. History of migraine headache, none recent. REVIEW OF SYSTEMS: As per HPI. Rest of 12-point review of systems reviewed and negative. PHYSICAL EXAMINATION: GENERAL: Comfortable in bed, in no acute distress. VITAL SIGNS: Temperature 98.7, heart rate 80 per minute, blood pressure 130/60, respiratory rate 18 per minute and oxygen saturation 100% on room air. NECK: Supple. CHEST: Air entry present equal and bilateral. No added sounds. CARDIOVASCULAR: S1 and S2 normal. No murmur. No gallop. ABDOMEN: Soft and nontender. No hepatosplenomegaly. EXTREMITIES: Bilateral lower extremities erythema. Bilateral lower extremities swelling extending into the thigh area. LABORATORY DATA: White count 4.4, hemoglobin 13 and platelets 231. Creatinine 0.6. BUN 6. Blood culture, no growth. MEDICATIONS: Coumadin, Topamax, Norvasc, omeprazole, Zocor, Xanax, cefepime and vancomycin. ASSESSMENT: 1. Lower extremity cellulitis. 2. Leukopenia. 3. Granulocytosis. 4. Chronic obstructive pulmonary disease. 5. Hypertension. PLAN: She is currently on IV antibiotics, on cefepime and vancomycin. We will continue that. Blood culture no growth. Cellulitis slightly improved. Complaining of itching. Benadryl p.r.n. q. 6 hours 25 mg, DuoNeb p.r.n., Xanax 0.5 mg p.o. four times a day, Norvasc 10 mg daily, Lipitor 10 mg daily, lisinopril 40 mg daily, Percocet p.r.n. for leg pain, Topamax 100 mg p.o. b.i.d., Coumadin 4 mg daily. INR is therapeutic 2.3. Zita Watts MD
[2017-04-10] MEDS: Albuterol-Ipratrop 3 mg / 0.5 (3 ml) UD IH SCH ×4 (01:38→19:46)
--- NOTE | 2017-04-10 02:25 | PN ---
DATE: 04/09/2017 SUBJECTIVE: The patient is in bed, no acute distress and nontoxic. PHYSICAL EXAMINATION: VITAL SIGNS: Temperature is 98, blood pressure is 120/70, and respiratory rate of 16. HEENT: Unremarkable. NECK: Supple. LUNGS: Decreased breath sounds. HEART: Normal S1 and S2. ABDOMEN: Soft and nontender. LABORATORY DATA: White count of 4.4, hemoglobin of 13, BUN of 6, creatinine of 0.6. Urinalysis is noted. Microbiology reveals blood cultures showed growth, and Dr. Watts's note from yesterday is reviewed. ASSESSMENT AND PLAN: This is a 66-year-old female with obesity with BMI of 36, chronic obstructive lung disease, anxiety, hypertension, migraine headaches, severe bilateral lower extremity cellulitis that is streaking up to the thigh, more so on the right thigh, and recent hospitalization, currently on vancomycin and Maxipime with some improvement in the legs, although still significant erythema is present but negative blood cultures, and on vancomycin and cefepime. We will follow closely with you. The duration of the antibiotics will be depended upon the clinical response significant cellulitis is present. Kristopher Busch MD
[2017-04-10] MEDS: Oxycodone/Acetaminophen 5/325 mg Tab PO PRN ×2 (04:32→13:32)
[2017-04-10] MEDS: Cefepime 1gm in NS 100ml 1 GM/100 ML BAG IVPB SCH ×3 (05:12→21:44)
[2017-04-10] MEDS: Vancomycin 1gm in NS 250ml 1 GM/250 ML BAG IVPB SCH ×2 (05:13→18:17)
[2017-04-10 07:31] LABS: HEMOGLOBIN 13.3 g/dL (12.0-16.0); MEAN CELL VOLUME 93.2 fl (80.0-105.0); MEAN CORPUSCULAR HGB CONC 32.1 g/dl (31.0-37.0); RBC 4.44 [, 10^6/uL] (3.5-6.1); RED CELL DISTRIBUTION WIDTH 16.4 % (11.5-14.5); WHITE BLOOD COUNT 4.6 [, 10^3/ul] (4.5-11.0)
[2017-04-10 07:59] LABS: ALB/GLOB RATIO 1.4 (1.1-1.8); ALBUMIN 4.2 g/dL (3.0-4.8); ALT/SGPT 35 U/L (7-56); AST/SGOT 32 U/L (14-36); BLOOD UREA NITROGEN 10 mg/dL (7-21); CALCIUM 9.4 mg/dL (8.4-10.5); GFR AFRICAN-AMERICAN > 60; GFR NON-AFRICAN AMERICAN > 60
[2017-04-10] MEDS: Pantoprazole 40 mg EC Tab PO SCH (09:09)
[2017-04-10] MEDS: TEMAZEPAM 30 MG PO SCH (09:10)
[2017-04-10] MEDS ORDERED: Oxycodone/Acetaminophen 5/325 mg Tab PO PRN (21:18)
--- NOTE | 2017-04-10 23:50 | PN ---
DATE: 04/10/2017 SUBJECTIVE: She is comfortable in bed, she has still significant pain in the lower extremity, currently getting oxycodone, pain controlled on current regimen. She has significant swelling and erythema of the lower extremity. No shortness of breath, currently on bronchodilators. Blood pressure is controlled on current medication. She is currently on IV antibiotics as per ID. REVIEW OF SYSTEMS: As per HPI. Rest of 12-point review of systems reviewed and negative. PHYSICAL EXAMINATION: GENERAL: Comfortable in bed, in no acute distress. VITAL SIGNS: Stable. Temperature 98.9, heart rate is 86 per minute, blood pressure 130/70, respiratory rate 15 per minute, and oxygen saturation 98% on room air. NECK: No lymphadenopathy. CHEST: Fair air entry present, equal bilaterally. No added sounds. CARDIOVASCULAR: S1 and S2 normal. No murmur. No gallop. ABDOMEN: Soft, nontender. No hepatosplenomegaly. EXTREMITIES: Bilateral lower extremity erythema, bilateral lower extremity swelling present. DAIRY NUTRITION CONSULTANT: Alert and oriented x3. No focal sensory or motor deficit. SPINE: Nontender. LABORATORY DATA: White count 4.6, hemoglobin 13.3, hematocrit 41.4, platelets 257. Sodium 145, potassium 4, BUN 10, creatinine 0.7, AST 32, ALT 35, and alkaline phosphatase 96. MEDICATIONS: DuoNeb q.6 hours p.r.n., Xanax 0.5 mg p.o. four times a day, Norvasc 10 mg daily, Lipitor 10 mg daily, cefepime q.8 hours, Benadryl 25 mg q.6 hours, lisinopril 40 mg daily, temazepam 30 mg daily, Percocet q.4 hours p.r.n., Protonix 40 mg daily, Topamax 100 mg p.o. b.i.d., vancomycin, and Coumadin 4 mg daily. ASSESSMENT AND PLAN: 1. Lower extremity cellulitis. 2. Leukopenia. 3. Continue bronchodilators, pain controlled on current regimen. We will continue Percocet q.6 hours p.r.n. for pain. Continue Coumadin 4 mg daily, INR is stable at 2.5. ID, Dr. Busch is following, notes reviewed. Zita Watts MD
--- NOTE | 2017-04-11 01:05 | PN ---
DATE: 04/10/2017 SUBJECTIVE: The patient seen in earlier today in room 369. The patient had low-grade fevers. PHYSICAL EXAMINATION: VITAL SIGNS: Temperature is 100.5, blood pressure is 140/70, respiratory rate of 20. HEENT: Unremarkable. NECK: Supple. LUNGS: Have decreased breath sounds. HEART: Normal S1, S2. ABDOMEN: Soft. LABORATORY EXAMINATION: Reveals a white count of 4.6, hemoglobin of 13, and platelets of 257. Chemistries are noted. Current urinalysis is noted. Microbiology reveals blood cultures are no growth. ASSESSMENT AND PLAN: This is a 66-year-old female with obesity, body mass index of 36; chronic obstructive lung disease; anxiety; hypertension; migraine headache; severe bilateral lower extremity cellulitis, which is much improved today on vancomycin and Maxipime. We will continue with her present course. If the patient's legs are continuing to improve, we will be able to switch to p.o. antibiotics. We will follow with you. Kristopher Busch MD
[2017-04-11] MEDS: Albuterol-Ipratrop 3 mg / 0.5 (3 ml) UD IH SCH ×4 (03:47→22:01)
[2017-04-11] MEDS: Cefepime 1gm in NS 100ml 1 GM/100 ML BAG IVPB SCH ×3 (05:24→22:00)
[2017-04-11] MEDS: Vancomycin 1gm in NS 250ml 1 GM/250 ML BAG IVPB SCH ×2 (05:25→18:29)
--- NOTE | 2017-04-11 06:47 | CP.PCM.PN ---
Subjective - Date & Time of Evaluation Date of Evaluation: 04/11/17 Time of Evaluation: 06:45 - Subjective Subjective: draft Temp up. Rx, see orders. Objective - Vital Signs/Intake and Output Vital Signs (last 24 hours): Temp Pulse Resp BP Pulse Ox 100.5 F H 74 20 143/71 97 04/10/17 16:00 04/10/17 16:00 04/10/17 16:00 04/10/17 16:00 04/10/17 06:00 Intake and Output: 04/10/17 04/11/17 18:59 06:59 Intake Total 845 900 Balance 845 900 - Medications Medications: Current Medications Albuterol/Ipratropium (Duoneb 3 Mg/0.5 Mg (3 Ml) Ud) 3 ml IH [id number] [facility] Last Admin: 04/11/17 03:47 Dose: 3 ml Alprazolam (Xanax) 0.5 mg PO QID [facility] PRN Reason: Protocol Last Admin: 04/10/17 21:43 Dose: 0.5 mg Amlodipine Besylate (Norvasc) 10 mg PO DAILY [facility] Last Admin: 04/10/17 09:09 Dose: 10 mg Atorvastatin Calcium (Lipitor) 10 mg PO DIN [facility] Last Admin: 04/10/17 18:16 Dose: 10 mg Diphenhydramine HCl (Benadryl) 25 mg PO Q6 PRN PRN Reason: Itching / Pruritus Last Admin: 04/10/17 09:10 Dose: 25 mg Cefepime HCl (Maxipime 1gm) 1 gm in 100 mls @ 100 mls/hr IVPB Q8 [facility] PRN Reason: Protocol Stop: 04/17/17 14:01 Last Admin: 04/11/17 05:24 Dose: 100 mls/hr Vancomycin HCl (Vancomycin 1gm) 1 gm in 250 mls @ 167 mls/hr IVPB 0600,1800 [facility] PRN Reason: Protocol Last Admin: 04/11/17 05:25 Dose: 167 mls/hr Lisinopril (Zestril) 40 mg PO DAILY [facility] Last Admin: 04/10/17 09:09 Dose: 40 mg Temazepam [Temazepam (] 30 Mg (Home Med)) 30 mg PO DAILY [facility] Last Admin: 04/10/17 09:10 Dose: Not Given Oxycodone/Acetaminophen (Percocet 5/325 Mg Tab) 1 tab PO Q4 PRN PRN Reason: Pain, moderate (4-7) Stop: 04/14/17 21:19 Last Admin: 04/10/17 21:42 Dose: 1 tab Oxycodone/Acetaminophen (Percocet 5/325 Mg Tab) 2 tab PO Q6 PRN PRN Reason: Pain, severe (8-10) Stop: 04/14/17 00:01 Pantoprazole Sodium (Protonix Ec Tab) 40 mg PO DAILY [facility] Last Admin: 04/10/17 09:09 Dose: 40 mg Topiramate (Topamax) 100 mg PO BID [facility] PRN Reason: Protocol Last Admin: 04/10/17 18:16 Dose: 100 mg Warfarin Sodium (Coumadin) 4 mg PO DAILY [facility] Last Admin: 04/10/17 09:10 Dose: 4 mg - Labs Labs: 04/10/17 07:10 04/10/17 07:10 PT 27.1 SECONDS (9.4-12.5) H 04/08/17 09:30 INR 2.32 (0.93-1.08) H 04/08/17 09:30 APTT 46.7 Seconds (25.1-36.5) H 04/07/17 14:00
[2017-04-11 07:37] LABS: MEAN CELL VOLUME 92.1 fl (80.0-105.0); MEAN CORPUSCULAR HEMOGLOBIN 30.2 pg (25.0-35.0); MEAN CORPUSCULAR HGB CONC 32.7 g/dl (31.0-37.0); MEAN PLATELET VOLUME 11.1 fl (7.0-11.0); RBC 4.31 [, 10^6/uL] (3.5-6.1); WHITE BLOOD COUNT 4.6 [, 10^3/ul] (4.5-11.0)
[2017-04-11 10:11] LABS: ALB/GLOB RATIO 1.3 (1.1-1.8); ALBUMIN 3.9 g/dL (3.0-4.8); ALT/SGPT 34 U/L (7-56); AST/SGOT 30 U/L (14-36); BLOOD UREA NITROGEN 8 mg/dL (7-21); CALCIUM 9.5 mg/dL (8.4-10.5); GFR AFRICAN-AMERICAN > 60; GFR NON-AFRICAN AMERICAN > 60
[2017-04-11] MEDS: Pantoprazole 40 mg EC Tab PO SCH (10:55)
[2017-04-11] MEDS: TEMAZEPAM 30 MG PO SCH (10:55)
[2017-04-11] MEDS: Nystatin 100,000 Units/ml Oral Susp 5 ml UD PO SCH ×3 (15:29→22:00)
[2017-04-11] MEDS ORDERED: TEMAZEPAM 30 MG PO SCH (20:32)
[2017-04-11] MEDS ORDERED: TEMAZEPAM 30 MG PO PRN (20:57)
[2017-04-11] MEDS: Oxycodone/Acetaminophen 5/325 mg Tab PO PRN (23:03)
[2017-04-12] MEDS: Albuterol-Ipratrop 3 mg / 0.5 (3 ml) UD IH SCH ×4 (01:09→20:41)
--- NOTE | 2017-04-12 02:33 | PN ---
DATE: 04/11/2017 SUBJECTIVE: Patient is in bed, no acute distress, continues to have fever today. Temperature was up to 102 earlier this morning. No diarrhea. No abdominal pain and no chest pain. No dysuria or frequency. PHYSICAL EXAMINATION: VITAL SIGNS: Temperature of 102.5, blood pressure is 120/70, respiratory rate of 18. HEENT: Unremarkable. NECK: Supple. LUNGS: Decreased breath sounds. HEART: Normal S1, S2. ABDOMEN: Soft, nontender. LABORATORY EXAMINATION: Reveals a white count of 4.6, hemoglobin of 13, and platelets of 213. BUN of 8, creatinine of 0.6. Urinalysis is noted. Influenza is negative. Microbiology reveals the blood cultures, no growth. Review of orders. Review of her repeat blood cultures are ordered. Patient is on cefepime, vancomycin. Examination of leg is much improved. The patient had a bone scan and ruled out osteomyelitis. ASSESSMENT AND PLAN: This is a 66-year-old female who has had obesity with body mass index of 36, chronic obstructive lung disease, anxiety, hypertension, migraine headaches, severe bilateral lower extremity cellulitis which is greatly improving on vancomycin and Maxipime. Today, patient has a new fever of 102, we will check on repeat cultures. Patient does have a PICC line in the left arm and we will repeat a urinalysis and urine culture and a chest x-ray and a procalcitonin. We will follow closely with you. Kristopher Busch MD
[2017-04-12] MEDS: Vancomycin 1gm in NS 250ml 1 GM/250 ML BAG IVPB SCH ×2 (05:51→17:15)
[2017-04-12] MEDS: Cefepime 1gm in NS 100ml 1 GM/100 ML BAG IVPB SCH ×3 (05:51→22:23)
[2017-04-12 07:28] LABS: HEMOGLOBIN 13.6 g/dL (12.0-16.0); MEAN CELL VOLUME 92.3 fl (80.0-105.0); MEAN CORPUSCULAR HGB CONC 32.5 g/dl (31.0-37.0); MEAN PLATELET VOLUME 10.7 fl (7.0-11.0); RBC 4.53 [, 10^6/uL] (3.5-6.1); RED CELL DISTRIBUTION WIDTH 16.3 % (11.5-14.5); WHITE BLOOD COUNT 4.4 [, 10^3/ul] (4.5-11.0)
[2017-04-12 07:43] LABS: INR 1.97 (0.93-1.08)
[2017-04-12 07:44] LABS: ALB/GLOB RATIO 1.3 (1.1-1.8); ALBUMIN 3.8 g/dL (3.0-4.8); ALT/SGPT 29 U/L (7-56); AST/SGOT 29 U/L (14-36); BLOOD UREA NITROGEN 11 mg/dL (7-21); CALCIUM 8.9 mg/dL (8.4-10.5); GFR AFRICAN-AMERICAN > 60; GFR NON-AFRICAN AMERICAN > 60
--- NOTE | 2017-04-12 09:49 | RAD ---
HISTORY: COMPARISON: 04/07/2017. TECHNIQUE: Chest PA and lateral FINDINGS: LINES AND TUBES: None. LUNG AND PLEURA: The lungs are well inflated and clear. HEART AND MEDIASTINUM: The heart is not enlarged. The hilar and mediastinal contours are within normal limits. SKELETAL STRUCTURES: Status post right shoulder arthroplasty. The bony structures are within normal limits for the patient's age. VISUALIZED UPPER ABDOMEN: Normal. OTHER FINDINGS: There are bilateral calcified breast implants. IMPRESSION: No active pulmonary disease.
[2017-04-12] MEDS: Nystatin 100,000 Units/ml Oral Susp 5 ml UD PO SCH ×4 (09:50→22:24)
[2017-04-12] MEDS: Pantoprazole 40 mg EC Tab PO SCH (09:51)
[2017-04-12] MEDS: Oxycodone/Acetaminophen 5/325 mg Tab PO PRN ×2 (10:01→22:31)
[2017-04-12] MEDS ORDERED: HYDROmorphone 1 mg/ml ISec IVP PRN (10:25)
--- NOTE | 2017-04-12 10:43 | NM ---
PROCEDURE: Triple Phase Bone Scan HISTORY: b/l leg cellultis COMPARISON: None available. TECHNIQUE: Following administration of 20.0 miCu of Tc MDP multiplanar triple phase bone scan of the lower legs was obtained in the flow, blood pool and delayed phases of tracer uptake. FINDINGS: There is no focal accumulation of the radionuclide in any face to suggest osteomyelitis. Degenerative changes are seen in the knees and feet. IMPRESSION: Negative study
--- NOTE | 2017-04-12 17:48 | CP.PCM.PN ---
Subjective - Date & Time of Evaluation Date of Evaluation: 04/12/17 Time of Evaluation: 10:35 - Subjective Subjective: Comfortable, less pain in the legs, has some cough but no phlegm. No fevers overnight. Objective - Vital Signs/Intake and Output Vital Signs (last 24 hours): Temp Pulse Resp BP Pulse Ox 99.6 F 72 20 134/83 94 L 04/12/17 09:52 04/12/17 08:03 04/12/17 08:03 04/12/17 09:50 04/12/17 08:03 - Medications Medications: Current Medications Acetaminophen (Tylenol 325mg Tab) 650 mg PO Q6H PRN PRN Reason: Fever >100.4 F Last Admin: 04/12/17 09:52 Dose: 650 mg Albuterol/Ipratropium (Duoneb 3 Mg/0.5 Mg (3 Ml) Ud) 3 ml IH [id number] [facility] Last Admin: 04/12/17 09:35 Dose: 3 ml Alprazolam (Xanax) 0.5 mg PO QID [facility] PRN Reason: Protocol Last Admin: 04/12/17 09:51 Dose: 0.5 mg Amlodipine Besylate (Norvasc) 10 mg PO DAILY [facility] Last Admin: 04/12/17 09:50 Dose: 10 mg Atorvastatin Calcium (Lipitor) 10 mg PO DIN [facility] Last Admin: 04/11/17 18:27 Dose: 10 mg Diphenhydramine HCl (Benadryl) 25 mg PO Q6 PRN PRN Reason: Itching / Pruritus Last Admin: 04/10/17 09:10 Dose: 25 mg Hydromorphone HCl (Dilaudid) 1 mg IVP Q4H PRN PRN Reason: Headache Cefepime HCl (Maxipime 1gm) 1 gm in 100 mls @ 100 mls/hr IVPB Q8 [facility] PRN Reason: Protocol Stop: 04/17/17 14:01 Last Admin: 04/12/17 05:51 Dose: 100 mls/hr Vancomycin HCl (Vancomycin 1gm) 1 gm in 250 mls @ 167 mls/hr IVPB 0600,1800 [facility] PRN Reason: Protocol Last Admin: 04/12/17 05:51 Dose: 167 mls/hr Lisinopril (Zestril) 40 mg PO DAILY [facility] Last Admin: 04/12/17 09:51 Dose: 40 mg Temazepam [Temazepam (] 30 Mg (Home Med)) 30 mg PO HS PRN PRN Reason: Insomnia Nystatin (Nystatin Oral Susp) 5 ml PO QID [facility] Last Admin: 04/12/17 09:50 Dose: 5 ml Oxycodone/Acetaminophen (Percocet 5/325 Mg Tab) 1 tab PO Q4 PRN PRN Reason: Pain, moderate (4-7) Stop: 04/14/17 21:19 Last Admin: 04/10/17 21:42 Dose: 1 tab Oxycodone/Acetaminophen (Percocet 5/325 Mg Tab) 2 tab PO Q6 PRN PRN Reason: Pain, severe (8-10) Stop: 04/14/17 00:01 Last Admin: 04/12/17 10:01 Dose: 2 tab Pantoprazole Sodium (Protonix Ec Tab) 40 mg PO DAILY [facility] Last Admin: 04/12/17 09:51 Dose: 40 mg Topiramate (Topamax) 100 mg PO BID [facility] PRN Reason: Protocol Last Admin: 04/12/17 09:51 Dose: 100 mg Warfarin Sodium (Coumadin) 4 mg PO DAILY [facility] Last Admin: 04/12/17 09:52 Dose: 4 mg - Labs Labs: 04/12/17 07:00 04/12/17 07:00 PT 23.0 SECONDS (9.4-12.5) H 04/12/17 07:00 INR 1.97 (0.93-1.08) H 04/12/17 07:00 APTT 46.7 Seconds (25.1-36.5) H 04/07/17 14:00 - Constitutional Appears: Chronically Ill - Head Exam Head Exam: NORMAL INSPECTION - ENT Exam ENT Exam: Mucous Membranes Moist - Neck Exam Neck Exam: absent: Meningismus - Respiratory Exam Respiratory Exam: Decreased Breath Sounds - Cardiovascular Exam Cardiovascular Exam: +S1, +S2 - GI/Abdominal Exam GI & Abdominal Exam: Soft. absent: Tenderness Assessment and Plan - Assessment and Plan (Free Text) Plan: Assessment severe bilateral lower extremity cellulitis, slowly improving history of diffuse maculopapular rash, probably drug-related R/O due to generic Verapamil HTN COPD migraine arthritis anxiety S/P left knee arthroplasty in June 2015 obesity with BMI 38 Plan continue Vancomycin and Cefepime; bone scan is negative, doppler U/S is negative will monitor clinically
[2017-04-12 18:36] LABS: URINE APPEARANCE CLEAR (CLEAR); URINE BILIRUBIN NEGATIVE (NEGATIVE); URINE BLOOD NEGATIVE (NEGATIVE); URINE COLOR YELLOW (YELLOW); URINE GLUCOSE (UA) NEGATIVE (NEGATIVE); URINE LEUKOCYTE ESTERASE NEGATIVE Leu/uL (NEGATIVE); URINE NITRATE NEGATIVE (NEGATIVE); URINE PROTEIN TRACE mg/dL (<30 mg/dL); URINE UROBILINOGEN 0.2 E.U./dL (<1 E.U./dL)
[2017-04-12 18:39] LABS: URINE BACTERIA FEW (NEG); URINE RBC NEGATIVE /hpf (0-2)
[2017-04-13] MEDS: Albuterol-Ipratrop 3 mg / 0.5 (3 ml) UD IH SCH ×3 (03:10→14:05)
[2017-04-13] MEDS: Cefepime 1gm in NS 100ml 1 GM/100 ML BAG IVPB SCH ×2 (05:06→15:21)
[2017-04-13] MEDS: Vancomycin 1gm in NS 250ml 1 GM/250 ML BAG IVPB SCH ×2 (05:07→06:18)
[2017-04-13 08:03] VITALS: BP 116/63; PULSE 91; RESP 22; O2SAT 94
[2017-04-13 08:07] LABS: ALB/GLOB RATIO 1.2 (1.1-1.8); ALBUMIN 3.3 g/dL (3.0-4.8); ALT/SGPT 33 U/L (7-56); AST/SGOT 28 U/L (14-36); BLOOD UREA NITROGEN 14 mg/dL (7-21); CALCIUM 8.2 mg/dL (8.4-10.5); GFR AFRICAN-AMERICAN > 60; GFR NON-AFRICAN AMERICAN > 60
[2017-04-13 08:50] LABS: HEMOGLOBIN 12.5 g/dL (12.0-16.0); MEAN CELL VOLUME 92.5 fl (80.0-105.0); MEAN CORPUSCULAR HEMOGLOBIN 29.3 pg (25.0-35.0); MEAN CORPUSCULAR HGB CONC 31.6 g/dl (31.0-37.0); MEAN PLATELET VOLUME 11.5 fl (7.0-11.0); RBC 4.27 [, 10^6/uL] (3.5-6.1); RED CELL DISTRIBUTION WIDTH 16.5 % (11.5-14.5); WHITE BLOOD COUNT 3.5 [, 10^3/ul] (4.5-11.0)
[2017-04-13] MEDS: Pantoprazole 40 mg EC Tab PO SCH (10:23)
[2017-04-13] MEDS: Nystatin 100,000 Units/ml Oral Susp 5 ml UD PO SCH ×2 (10:24→15:21)
[2017-04-13 13:20] VITALS: TEMP 98.7
--- NOTE | 2017-04-13 13:40 | CP.PCM.PCO ---
Physician Communication Note - Physician Communication Note Physician Communication Note: Removed left midline,pressure held 15-20 min,no bleeding, dressing applied.
--- NOTE | 2017-04-13 22:42 | PN ---
DATE: 04/13/2017 SUBJECTIVE: The patient is in bed, in no acute distress. PHYSICAL EXAMINATION: VITAL SIGNS: The patient has low-grade fevers 100.6, pulse of 91, and respiratory rate of 22. HEENT: Unremarkable. NECK: Supple. LUNGS: Have decreased breath sounds. HEART: Normal S1 and S2. ABDOMEN: Soft. LABORATORY DATA: Reveals a white count of 3.5, hemoglobin of 12, and platelets of 205. Chemistries reveals a BUN of 14, creatinine of 0.7, and procalcitonin is less than 0.05. Urinalysis is noted. Influenza serology is negative. Microbiology reveals the blood cultures are negative. The lungs are well inflated and clear. ASSESSMENT AND PLAN: This is a 66-year-old female with severe bilateral lower extremity cellulitis improving, history of diffuse maculopapular rash probably drug related due to generic verapamil, hypertension, chronic obstructive pulmonary disease, migraine, and on vancomycin and cefepime. Bone scan negative. Dopplers are negative. Kristopher Busch MD
--- NOTE | 2017-04-14 21:23 | DS ---
DATE OF DISCHARGE: 04/13/2017 DISCHARGE DIAGNOSES: 1. Bilateral lower extremity cellulitis. 2. Chronic obstructive pulmonary disease. 3. Hypertension. 4. Leukocytosis, anemia. HOSPITAL COURSE: The patient was admitted with severe bilateral lower extremity cellulitis. Bone scan was negative for osteomyelitis. She was treated with IV antibiotics. ID consultation, Dr. Busch, requested. He followed her during the hospitalization. She was on Zosyn and vancomycin during the hospitalization, cellulitis improved. She is being discharged home in stable condition. She also received bronchodilators for COPD and pain medications for lower extremity pain. PHYSICAL EXAMINATION ON DISCHARGE: VITAL SIGNS: Temperature 98.7, heart rate 80 per minute, blood pressure 110/70, respiratory rate 18 per minute, pulse ox is 98% room air. HEENT: Normal. Oral mucosa moist. Pallor positive. NECK: No lymphadenopathy. CHEST: Air entry present and equal bilaterally. No added sounds. CARDIOVASCULAR: S1 and S2 normal. No murmur, no gallop. ABDOMEN: Soft, nontender. No hepatosplenomegaly. EXTREMITIES: Bilateral lower extremity cellulitis markedly improved. Erythema almost resolved. No swelling of the lower extremities. KISS SETTER HAND: Alert and oriented x3. No focal sensory or motor deficit. SPINE: Nontender. CONDITION ON DISCHARGE: Stable. DISPOSITION: Discharged home. DISCHARGE MEDICATIONS: Doxycycline 100 mg p.o. b.i.d. for 7 days, Tylenol 650 p.r.n., Xanax 0.5 mg p.o. four times a day p.r.n., Norvasc 10 mg daily, Lipitor 10 mg daily, Percocet p.r.n. for leg pain, Topamax 100 mg p.o. b.i.d., and Coumadin 4 mg daily. DIET: Consistent with Coumadin, regular diet. FOLLOWUP: With in 1 week. Time spent in preparing discharge and coordinating care, 55 minutes. Zita Watts MD
== END 2017-04-13 16:07 | disposition home or self-care (01) | DRG 603 ==
LOC: ED 13:18 → ERH 16:26 → 3RNO 17:18 → OBSVTOIN 04-08 16:10 → 3RNO 04-11 17:45
PROVIDERS: ADMIT Internal Medicine Medical Oncology; ATTEND Internal Medicine Medical Oncology
PROC: 05HY33Z Insertion of Infusion Device into Upper Vein, Percutaneous Approach (ICD-10-PCS; principal; 2017-04-10)
DX: L03.116 Cellulitis of left lower limb (principal); D64.9 Anemia, unspecified; J44.9 Chronic obstructive pulmonary disease, unspecified; L03.115 Cellulitis of right lower limb; D72.819 Decreased white blood cell count, unspecified; E66.9 Obesity, unspecified; Z68.38 Body mass index [BMI] 38.0-38.9, adult; F41.9 Anxiety disorder, unspecified; G43.909 Migraine, unspecified, not intractable, without status migrainosus; H54.7 Unspecified visual loss; I10 Essential (primary) hypertension; L29.9 Pruritus, unspecified; M19.90 Unspecified osteoarthritis, unspecified site; Z79.01 Long term (current) use of anticoagulants; Z79.899 Other long term (current) drug therapy; Z96.652 Presence of left artificial knee joint; Z88.6 Allergy status to analgesic agent; Z88.8 Allergy status to other drugs, medicaments and biological substances; R40.2412 Glasgow coma scale score 13-15, at arrival to emergency department